=== PATIENT | female | born 1985 | race Caucasian/White ===

== ENCOUNTER → 2018-04-22 09:52 | Outpatient (CLI) | payer OTHER, SELFPAY ==
--- NOTE | 2018-04-22 09:53 | RAD_ITS ---
STUDY: X-RAY CHEST REASON FOR EXAM: Female, 32 years old. Cough. TECHNIQUE: Frontal and lateral views of the chest. COMPARISON: None. FINDINGS: The lungs are clear and expanded. There is no demonstrated pleural abnormality. Normal size heart. Normal mediastinum and pernell. Normal visualized pulmonary arteries. Normal visualized aortic arch and descending thoracic aorta. Normal visualized thoracic spine. Normal visualized ribs, clavicles, and shoulders. There is no demonstrated abnormality of the visualized soft tissue structures of the upper abdomen. RAD/Chest PA and Lateral IMPRESSION: Normal x-ray examination of the chest. Electronically Signed: Aldair Burnett MD at 16:58 EDT , Service support ,
== END ==
PROVIDERS: Family Provider Internal Medicine; PCP Internal Medicine; Visit Provider Nurse Practitioner Gerontology
DX: R05 Cough (principal)
CPT/HCPCS: 71046

== ENCOUNTER → 2019-01-01 10:44 | Outpatient (CLI) | payer OTHER, SELFPAY ==
--- NOTE | 2019-01-01 10:58 | VDUE_ITS ---
Reason For Study: LUE pain Left Proximal Left jugular vein is spontaneous, widely patent, phasic, with no intraluminal echogenicity noted. Left subclavian vein is spontaneous, widely patent, phasic, with no intraluminal echogenicity noted. Left Arm Left axillary vein is spontaneous, patent, phasic, competent, compressible and demonstrates augmentation. Left brachial vein is compressible. Left cephalic vein is compressible. Left basilic vein is compressible. Left Lower Arm Left radial vein is compressible. Left ulnar vein is compressible. Interpretation Summary Deep veins of the left upper extremity are patent and compressible segmentally. There is no evidence of deep vein thrombosis. The superficial veins of the left upper extremity, the basilic and cephalic veins, are patent and compressible. There is no evidence of left upper extremity superficial thrombophlebitis involving the veins imaged. Ordering Physician: Brandee Del Rio Referring Physician: Brandee Del Rio Performed By: Zulema Gamboa RVT ?
== END ==
PROVIDERS: Family Provider Internal Medicine; PCP Internal Medicine; Referring Provider Nurse Practitioner; Visit Provider Nurse Practitioner
DX: M79.602 Pain in left arm (principal)
CPT/HCPCS: 93971

== ENCOUNTER 2020-03-12 15:41 | Emergency (ER) | payer OTHER, SELFPAY ==
[2020-03-12 15:43] VITALS: BP 132/78; PULSE 75; RESP 16; TEMP 36.1; O2SAT 98; BMI 28.2
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
--- NOTE | 2020-03-12 17:00 | ED.DEP ---
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
[2020-03-12] MEDS: RALTEGRAVIR POTASSIUM 400 MG TABLET PO (17:57)
--- NOTE | 2020-03-12 17:58 | ED.RN ---
Both truvada and isentress given unable to chart [facility]
[2020-03-12 18:10] LABS: HIV - WCH Non-Reactive (Nonreactive); Hepatitis B Surface Antibody Reactive; Hepatitis B Surface Antigen Non-Reactive (Nonreactive); Hepatitis C Antibody Non-Reactive (Nonreactive)
--- OUTSIDE RECORDS SUMMARY | 2020-08-03 16:15 | XMS RPT_ITS | CCD ---
:1985 External Reference #:[id number] Author Organization [facility] Care Team Providers Name Role Phone Zay Unavailable Librado Unavailable Cody Unavailable Hola [place] Unavailable Bob Unavailable Unavailable Yesenia Unavailable Unavailable Slarb Unavailable Unavailable Mast Unavailable Mast Unavailable Messenger Unavailable Unavailable Rojas Unavailable Unavailable Zay Attending Unavailable Zay Referring Unavailable Zay Consulting Unavailable Messenger Unavailable Unavailable Gravius Unavailable Unavailable Medications Medication Name Sig Date Prescriber Location Albuterol ProAir HFA 108 (90 08-11-2019 Bao Begum [facility]) MCG/ACT Internal Medic ine Inhalation Aerosol (61014) Solution 2 (two) Puff tid for 0 days Quantity: 1 {Inhaler} Refills: 0 Ordered: 11-Aug-2019 Bao Rojas LPN Start : 11-Aug-2019 Active Amoxicillin / Amoxicillin-Pot 06-13-2019 Mili Vergara nsive Clavulanate Clavulanate 875-125 - Internal Medicine MG Oral Tablet 1 08-01-2019 (15917) (one) Tablet bid for 0 days Quantity: 20 {Tablet} Refills: 0 Ordered: 01-Aug-2019 Mili Aldana RN Start : 13-Jun-2019 End : 01-Aug-2019 Inactive Augmentin 875-125 MG 07-02-2018 - Mili Bautistai ve Internal Oral Tablet 1 (one) 07-12-2018 Medicine (44 691) Tablet bid for 10 days Quantity: 20 {Tablet} Refills: 0 Ordered: 02-Jul-2018 Mili Castro Start : 02-Jul-2018 End : 12-Jul-2018 Inactive Azithromycin Zithromax Z-Keyur 250 08-11-2019 - Bao Vergara nsive MG Oral Tablet 1 09-01-2019 Internal Me dicine (one) Tablet TAD for (34986) 0 days Quantity: 1 {Package} Refills: 0 Ordered: 01-Sep-2019 Bao Rojas LPN Start : 11-Aug-2019 End : 01-Sep-2019 Inactive celecoxib CELEBREX, 200MG 07-21-2009 Mili Comprehensiv e (Oral Capsule) 1 Messenger Internal Me dicine Capsule BID for 0 (91409) days Quantity: 14 {Capsule} Refills: 0 Ordered: 09-May-2010 Mili Aldana RN Start : 21-Jul-2009 Inactive Cholecalciferol Vitamin D3 86392 11-25-2012 - Meera Slarb Comprehe nsive UNIT Oral Capsule 4 07-05-2016 Internal Medicine Capsule qd for 30 (23350) days Refills: 0 Ordered: 05-Jul-2016 Slarb Meera TOM Start : 25-Nov-2012 End : 05-Jul-2016 Discontinued Citalopram CELEXA, 20MG (Oral 11-25-2012 - Henrietta Comprehen sive Tablet) 1 Tablet qd 11-25-2012 [facility] Internal Medicine for 0 days Quantity: (28611) 30 {Tablet} Refills: 2 Ordered: 25-Nov-2012 Henrietta Collazo DO, DO, Kathleen Start : 25-Nov-2012 End : 25-Nov-2012 Discontinued Clotrimazole Clotrimazole 10 MG 08-11-2019 - Brandee Simental Ciesa Comprehen sive Mouth/Throat Chato 08-21-2019 Internal Medicine 1 (one) Chato 5 x (16083) daily for 10 days Quantity: 50 {Chato} Refills: 0 Ordered: 11-Aug-2019 Ciesa Brandee SALGADO Start : 11-Aug-2019 End : 21-Aug-2019 Inactive Codeine / Cheratussin AC 08-11-2019 - Bao Rojas Comprehensive guaiFENesin 100-10 MG/5ML Oral 09-02-2019 Internal Medicine Syrup 5-10 (94513) Milliliter q3-4 times per day for 0 days Quantity: 280 {Milliliter} Refills: 0 Ordered: 02-Sep-2019 Bao Rojas LPN Start : 11-Aug-2019 End : 02-Sep-2019 Inactive cyclobenzaprine Cyclobenzaprine HCl 04-29-2018 - Sondra Compr ehensive 5 MG Oral Tablet 1 07-02-2018 Yesenia Internal Medicine (one) Tablet tid prn (45294) for 0 days Quantity: 30 {Tablet} Refills: 0 Ordered: 02-Jul-2018 Sondra Patterson Start : 29-Apr-2018 End : 02-Jul-2018 Discontinued diazePAM VALIUM, 5MG (Oral 07-21-2009 Mili Comprehens essence Tablet) 1 (one) Messenger Internal Med icine Tablet BID/PRN for 0 (26993) days Quantity: 20 {Tablet} Refills: 0 Ordered: 09-May-2010 Mili Aldana RN Start : 21-Jul-2009 Inactive Comments: hand written RX by Dr. Collazo Comment: hand written RX by Dr. Zoe stiles Dicyclomine BENTYL, 20MG (Oral 07-22-2013 - Janet Comprehen sive Tablet) 1 Tablet 02-13-2014 [facility] Internal Me dicine tid prn for 0 days (73576) Quantity: 60 {Tablet} Refills: 0 [facility] REPRESENTATIVE, Janet Start : 22-Jul-2013 End : 13-Feb-2014 Inactive Ergocalciferol ERGOCALCIFEROL, 04-05-2009 - Mili Comprehens essence 94459HMFM (Oral 07-09-2009 [facility] Internal Med icine Capsule) 1 (one) (05772) Capsule weekly for 0 days Quantity: 12 {Capsule} Refills: 0 Ordered: 05-Apr-2009 Mili Aldana RN Start : 05-Apr-2009 End : 09-Jul-2009 Inactive Ethinyl Estradiol / Ortho-Cyclen (28) 08-06-2019 - Elodia Sesay C omprehensive norgestimate 0.25-35 MG-MCG 04-29-2020 Henrietta Internal [facility] cine Oral Tablet 1 Zay (16124) (one) Tablet qd for 90 days Quantity: 3 {Package} Refills: 3 Ordered: 06-Aug-2019 Henrietta Collazo DO, DO, Kathleen Start : 06-Aug-2019 End : 29-Apr-2020 Discontinued Comments: Mail order. Ortho-Cyclen (28) 08-06-2019 - Elodia Friedius Comprehensive Internal 0.25-35 MG-MCG Oral 04-29-2020 Henrietta Zay Medicine (44 691) Tablet 1 (one) Tablet qd for 90 days Quantity: 3 {Package} Refills: 3 Ordered: 06-Aug-2019 Zay DO, Henrietta Zay DO, Henrietta Start : 06-Aug-2019 End : 29-Apr-2020 Discontinued Comments: Mail order. Ortho-Cyclen (28) 08-06-2019 - Elodia Gravius Comprehensive Internal 0.25-35 MG-MCG Oral 04-29-2020 Henrietta Zay Medicine (44 691) Tablet 1 (one) Tablet qd for 90 days Quantity: 3 {Package} Refills: 3 Ordered: 06-Aug-2019 Zay DO, Henrietta Zay DO, Henrietta Start : 06-Aug-2019 End : 29-Apr-2020 Discontinued Comments: Mail order. Ortho-Cyclen (28) 08-06-2019 - Elodia Gravius Comprehensive Internal 0.25-35 MG-MCG Oral 04-29-2020 Henrietta Zay Medicine (44 691) Tablet 1 (one) Tablet qd for 90 days Quantity: 3 {Package} Refills: 3 Ordered: 06-Aug-2019 Zay DO, Henrietta Zay DO, Henrietta Start : 06-Aug-2019 End : 29-Apr-2020 Discontinued Comments: Mail order. Ortho-Cyclen (28) 08-06-2019 - Elodia Gravius Comprehensive Internal 0.25-35 MG-MCG Oral 04-29-2020 Henrietta Zay Medicine (44 691) Tablet 1 (one) Tablet qd for 90 days Quantity: 3 {Package} Refills: 3 Ordered: 06-Aug-2019 Zay DO, Henrietta Zay DO, Henrietta Start : 06-Aug-2019 End : 29-Apr-2020 Discontinued Comments: Mail order. Ortho-Cyclen (28) 08-06-2019 - Elodia Gravius Comprehensive Internal 0.25-35 MG-MCG Oral 04-29-2020 Henrietta Zay Medicine (44 691) Tablet 1 (one) Tablet qd for 90 days Quantity: 3 {Package} Refills: 3 Ordered: 06-Aug-2019 Zay DO, Henrietta Zay DO, Henrietta Start : 06-Aug-2019 End : 29-Apr-2020 Discontinued Comments: Mail order. Ortho-Cyclen (28) 08-06-2019 - Elodia Gravius Comprehensive Internal 0.25-35 MG-MCG Oral 04-29-2020 Henrietta Zay Medicine (44 691) Tablet 1 (one) Tablet qd for 90 days Quantity: 3 {Package} Refills: 3 Ordered: 06-Aug-2019 Zay DO, Henrietta Zay DO, Henrietta Start : 06-Aug-2019 End : 29-Apr-2020 Discontinued Comments: Mail order. Ortho-Cyclen (28) 08-06-2019 - Elodia Gravius Comprehensive Internal 0.25-35 MG-MCG Oral 04-29-2020 Henrietta Zay Medicine (44 691) Tablet 1 (one) Tablet qd for 90 days Quantity: 3 {Package} Refills: 3 Ordered: 06-Aug-2019 Zay DO, Henrietta Zay DO, Henrietta Start : 06-Aug-2019 End : 29-Apr-2020 Discontinued Comments: Mail order. Ortho-Cyclen (28) 08-06-2019 Meera Slarb Comprehensive Internal 0.25-35 MG-MCG Oral Henrietta Zay Medicine (44 691) Tablet 1 (one) Tablet qd for 90 days Quantity: 3 {Package} Refills: 3 Ordered: 06-Aug-2019 Zay DO, Henrietta Zay DO, Henrietta Start : 06-Aug-2019 Active Comments: Mail order. Ortho-Cyclen (28) 08-06-2019 Meera Slarb Comprehensive Internal 0.25-35 MG-MCG Oral Henrietta Zay Medicine (44 691) Tablet 1 (one) Tablet qd for 90 days Quantity: 3 {Package} Refills: 3 Ordered: 06-Aug-2019 Zay DO, Henrietta Zay DO, Henrietta Start : 06-Aug-2019 Active Comments: Mail order. Ortho-Cyclen (28) 08-06-2019 Meera Slarb Comprehensive Internal 0.25-35 MG-MCG Oral Henrietta Zay Medicine (44 691) Tablet 1 (one) Tablet qd for 90 days Quantity: 3 {Package} Refills: 3 Ordered: 06-Aug-2019 Zay DO, Henrietta Zay DO, Henrietta Start : 06-Aug-2019 Active Comments: Mail order. Ortho-Cyclen (28) 08-06-2019 Meera Slarb Comprehensive Internal 0.25-35 MG-MCG Oral Henrietta Zay Medicine (44 691) Tablet 1 (one) Tablet qd for 90 days Quantity: 3 {Package} Refills: 3 Ordered: 06-Aug-2019 Zay DO, Henrietta Zay DO, Henrietta Start : 06-Aug-2019 Active Comments: Mail order. Ortho-Cyclen (28) 08-06-2019 Meera Slarb Comprehensive Internal 0.25-35 MG-MCG Oral Henrietta Zay Medicine (44 691) Tablet 1 (one) Tablet qd for 90 days Quantity: 3 {Package} Refills: 3 Ordered: 06-Aug-2019 Zay DO, Henrietta Zay DO, Henrietta Start : 06-Aug-2019 Active Comments: Mail order. Ortho-Cyclen (28) 08-06-2019 Meera Slarb Comprehensive Internal 0.25-35 MG-MCG Oral Henrietta Zay Medicine (44 691) Tablet 1 (one) Tablet qd for 90 days Quantity: 3 {Package} Refills: 3 Ordered: 06-Aug-2019 Zay DO, Henrietta Zay DO, Henrietta Start : 06-Aug-2019 Active Comments: Mail order. [email or web address] (28) 08-06-2019 Meera Slarb Comprehensive Internal 0.25-35 MG-MCG Oral Henrietta Zay Medicine (44 691) Tablet 1 (one) Tablet qd for 90 days Quantity: 3 {Package} Refills: 3 Ordered: 06-Aug-2019 Zay DO, Henrietta Zay DO, Henrietta Start : 06-Aug-2019 Active Comments: Mail order. [email or web address] (28) 08-06-2019 Meera Slarb Comprehensive Internal 0.25-35 MG-MCG Oral Henrietta Zay Medicine (44 691) Tablet 1 (one) Tablet qd for 90 days Quantity: 3 {Package} Refills: 3 Ordered: 06-Aug-2019 Zay DO, Henrietta Zay DO, Henrietta Start : 06-Aug-2019 Active Comments: Mail order. [email or web address] (28) 09-02-2018 Mili Messenger Comprehensive Internal 0.25-35 MG-MCG Oral Henriteta Zay Medicine (44 691) Tablet 1 (one) Tablet qd for 30 days Quantity: 1 {Package} Refills: 0 Ordered: 02-Sep-2018 Zay DO, Henrietta Zay DO, Henrietta Start : 02-Sep-2018 Active Comments: take as directed Ortho-Cyclen (28) 09-02-2018 Mili Messenger Comprehensive Internal 0.25-35 MG-MCG Oral Henrietta Zay Medicine (44 691) Tablet 1 (one) Tablet qd for 90 days Quantity: 3 {Package} Refills: 3 Ordered: 02-Sep-2018 Zay DO, Henrietta Zay DO, Henrietta Start : 02-Sep-2018 Active Comments: Mail order. Ortho-Cyclen (28) 09-02-2018 Mili Messenger Comprehensive Internal 0.25-35 MG-MCG Oral Henrietta Zay Medicine (44 691) Tablet 1 (one) Tablet qd for 90 days Quantity: 3 {Package} Refills: 3 Ordered: 02-Sep-2018 Zay DO, Henrietta Zay DO, Henrietta Start : 02-Sep-2018 Active Comments: Mail order. Ortho-Cyclen (28) 09-02-2018 Mili [employer] Comprehensive Internal 0.25-35 MG-MCG Oral Henrietta Zay Medicine (44 691) Tablet 1 (one) Tablet qd for 30 days Quantity: 1 {Package} Refills: 0 Ordered: 02-Sep-2018 Zay DO, Henrietta Zay DO, Henrietta Start : 02-Sep-2018 Active Comments: take as directed Ortho-Cyclen (28) 09-02-2018 Mili [employer] Comprehensive Internal 0.25-35 MG-MCG Oral Henrietta Zay Medicine (44 691) Tablet 1 (one) Tablet qd for 30 days Quantity: 1 {Package} Refills: 0 Ordered: 02-Sep-2018 Zay DO, Henrietta Zay DO, Henrietta Start : 02-Sep-2018 Active Comments: take as directed Ortho-Cyclen (28) 09-02-2018 Mili [employer] Comprehensive Internal 0.25-35 MG-MCG Oral Henrietta Zay Medicine (44 691) Tablet 1 (one) Tablet qd for 90 days Quantity: 3 {Package} Refills: 3 Ordered: 02-Sep-2018 Zay DO, Henrietta Zay DO, Henrietta Start : 02-Sep-2018 Active Comments: Mail order. Ortho-Cyclen (28) 09-02-2018 Mili [facility] Comprehensive Internal 0.25-35 MG-MCG Oral Henrietta Zay Medicine (44 691) Tablet 1 (one) Tablet qd for 90 days Quantity: 3 {Package} Refills: 3 Ordered: 02-Sep-2018 Zay DO, Henrietta Zay DO, Henrietta Start : 02-Sep-2018 Active Ortho-Cyclen (28) 09-02-2018 Mili [facility] Comprehensive Internal 0.25-35 MG-MCG Oral Henrietta Zay Medicine (44 691) Tablet 1 (one) Tablet qd for 30 days Quantity: 1 {Package} Refills: 0 Ordered: 02-Sep-2018 Zay DO, Henrietta Zay DO, Henrietta Start : 02-Sep-2018 Active Comments: take as directed ORTHO TRI-CYCLEN , 02-19-2015 - Henrietta Zay Comprehensi ve Internal 0.18/0.215/0.25MG-25 02-19-2015 Medicine (4 4691) MCG (Oral Tablet) 1 Tablet qd for 0 days Quantity: 1 {Tablet} Refills: 0 Ordered: 19-Feb-2015 Zay DO, Henrietta Zay DO, Henrietta Start : 19-Feb-2015 End : 19-Feb-2015 Discontinued Comments: needs a pap ORTHO TRI-CYCLEN , 02-19-2015 - Henrietta Zay Comprehensi ve Internal 0.18/0.215/0.25MG-25 02-19-2015 Medicine (4 4691) MCG (Oral Tablet) 1 Tablet qd for 0 days Quantity: 1 {Tablet} Refills: 0 Ordered: 19-Feb-2015 Zay DO, Henrietta Zay DO, Henrietta Start : 19-Feb-2015 End : 19-Feb-2015 Discontinued Comments: needs a pap ORTHO TRI-CYCLEN , 02-19-2015 - Henrietta Zay Comprehensi ve Internal 0.18/0.215/0.25MG-25 02-19-2015 Medicine (4 4691) MCG (Oral Tablet) 1 Tablet qd for 0 days Quantity: 1 {Tablet} Refills: 0 Ordered: 19-Feb-2015 Zay DO, Henrietta Zay DO, Henrietta Start : 19-Feb-2015 End : 19-Feb-2015 Discontinued Comments: needs a pap ORTHO TRI-CYCLEN , 02-19-2015 - Henrietta Zay Comprehensi ve Internal 0.18/0.215/0.25MG-25 02-19-2015 Medicine (4 4691) MCG (Oral Tablet) 1 Tablet qd for 0 days Quantity: 1 {Tablet} Refills: 0 Ordered: 19-Feb-2015 Zay DOHenrietta DO, Kathleen Start : 19-Feb-2015 End : 19-Feb-2015 Discontinued Comments: needs a pap ORTHO TRI-CYCLEN , 02-19-2015 - Henrietta Zay Comprehensi ve Internal 0.18/0.215/0.25MG-25 02-19-2015 Medicine (4 4691) MCG (Oral Tablet) 1 Tablet qd for 0 days Quantity: 1 {Tablet} Refills: 0 Ordered: 19-Feb-2015 Zay DOHenrietta DO, Kathleen Start : 19-Feb-2015 End : 19-Feb-2015 Discontinued Comments: needs a pap ORTHO TRI-CYCLEN , 02-19-2015 - Henrietta Zay Comprehensi ve Internal 0.18/0.215/0.25MG-25 02-19-2015 Medicine (4 4691) MCG (Oral Tablet) 1 Tablet qd for 0 days Quantity: 1 {Tablet} Refills: 0 Ordered: 19-Feb-2015 Zay DOHenrietta DO, Kathleen Start : 19-Feb-2015 End : 19-Feb-2015 Discontinued Comments: needs a pap ORTHO TRI-CYCLEN , 02-19-2015 - Henrietta Zay Comprehensi ve Internal 0.18/0.215/0.25MG-25 02-19-2015 Medicine (4 4691) MCG (Oral Tablet) 1 Tablet qd for 0 days Quantity: 1 {Tablet} Refills: 0 Ordered: 19-Feb-2015 Zay DOHenrietta DO, Kathleen Start : 19-Feb-2015 End : 19-Feb-2015 Discontinued Comments: needs a pap ORTHO TRI-CYCLEN , 02-19-2015 - Henrietta Zay Comprehensi ve Internal 0.18/0.215/0.25MG-25 02-19-2015 Medicine (4 4691) MCG (Oral Tablet) 1 Tablet qd for 0 days Quantity: 1 {Tablet} Refills: 0 Ordered: 19-Feb-2015 Zay DO, Henrietta Zay DO Henrietta Start : 19-Feb-2015 End : 19-Feb-2015 Discontinued Comments: needs a pap ORTHO TRI-CYCLEN , 02-19-2015 - Henrietta Zay Comprehensi ve Internal 0.18/0.215/0.25MG-25 02-19-2015 Medicine (4 4691) MCG (Oral Tablet) 1 Tablet qd for 0 days Quantity: 1 {Tablet} Refills: 0 Ordered: 19-Feb-2015 Zay DO, Henrietta Zay DO Henrietta Start : 19-Feb-2015 End : 19-Feb-2015 Discontinued Comments: needs a pap ORTHO TRI-CYCLEN , 02-19-2015 - Henrietta Zay Comprehensi ve Internal 0.18/0.215/0.25MG-25 02-19-2015 Medicine (4 4691) MCG (Oral Tablet) 1 Tablet qd for 0 days Quantity: 1 {Tablet} Refills: 0 Ordered: 19-Feb-2015 Zay DO, Henrietta Zay DO Henrietta Start : 19-Feb-2015 End : 19-Feb-2015 Discontinued Comments: needs a pap ORTHO TRI-CYCLEN , 02-19-2015 - Henrietta Zay Comprehensi ve Internal 0.18/0.215/0.25MG-25 02-19-2015 Medicine (4 4691) MCG (Oral Tablet) 1 Tablet qd for 0 days Quantity: 1 {Tablet} Refills: 0 Ordered: 19-Feb-2015 Zay DO, Henrietta Zay DO Henrietta Start : 19-Feb-2015 End : 19-Feb-2015 Discontinued Comments: needs a pap ORTHO TRI-CYCLEN , 02-19-2015 - Henrietta Zay Comprehensi ve Internal 0.18/0.215/0.25MG-25 02-19-2015 Medicine (4 4691) MCG (Oral Tablet) 1 Tablet qd for 0 days Quantity: 1 {Tablet} Refills: 0 Ordered: 19-Feb-2015 Zay DO, Henrietta Zay DO Henrietta Start : 19-Feb-2015 End : 19-Feb-2015 Discontinued Comments: needs a pap ORTHO TRI-CYCLEN , 02-19-2015 - Henrietta Zay Comprehensi ve Internal 0.18/0.215/0.25MG-25 02-19-2015 Medicine (4 4691) MCG (Oral Tablet) 1 Tablet qd for 0 days Quantity: 1 {Tablet} Refills: 0 Ordered: 19-Feb-2015 Henrietta Collazo DO, DO, Kathleen Start : 19-Feb-2015 End : 19-Feb-2015 Discontinued Comments: needs a pap ORTHO TRI-CYCLEN , 02-19-2015 - Henrietta Zay Comprehensi ve Internal 0.18/0.215/0.25MG-25 02-19-2015 Medicine (4 4691) MCG (Oral Tablet) 1 Tablet qd for 0 days Quantity: 1 {Tablet} Refills: 0 Ordered: 19-Feb-2015 Zay DOHenrietta DO, Kathleen Start : 19-Feb-2015 End : 19-Feb-2015 Discontinued Comments: needs a pap ORTHO TRI-CYCLEN , 02-19-2015 - Henrietta Zay Comprehensi ve Internal 0.18/0.215/0.25MG-25 02-19-2015 Medicine (4 4691) MCG (Oral Tablet) 1 Tablet qd for 0 days Quantity: 1 {Tablet} Refills: 0 Ordered: 19-Feb-2015 Zay DOHenrietta DO, Kathleen Start : 19-Feb-2015 End : 19-Feb-2015 Discontinued Comments: needs a pap ORTHO TRI-CYCLEN , 02-19-2015 - Henrietta Zay Comprehensi ve Internal 0.18/0.215/0.25MG-25 02-19-2015 Medicine (4 4691) MCG (Oral Tablet) 1 Tablet qd for 0 days Quantity: 1 {Tablet} Refills: 0 Ordered: 19-Feb-2015 Zay DOHenrietta DO, Kathleen Start : 19-Feb-2015 End : 19-Feb-2015 Discontinued Comments: needs a pap ORTHO TRI-CYCLEN , 02-19-2015 - Henrietta Zay Comprehensi ve Internal 0.18/0.215/0.25MG-25 02-19-2015 Medicine (4 4691) MCG (Oral Tablet) 1 Tablet qd for 0 days Quantity: 1 {Tablet} Refills: 0 Ordered: 19-Feb-2015 Zay DO, Henrietta Zay DO Henrietta Start : 19-Feb-2015 End : 19-Feb-2015 Discontinued Comments: needs a pap ORTHO TRI-CYCLEN , 02-19-2015 - Henrietta Zay Comprehensi ve Internal 0.18/0.215/0.25MG-25 02-19-2015 Medicine (4 4691) MCG (Oral Tablet) 1 Tablet qd for 0 days Quantity: 1 {Tablet} Refills: 0 Ordered: 19-Feb-2015 Zay DO, Henrietta Zay DO Henrietta Start : 19-Feb-2015 End : 19-Feb-2015 Discontinued Comments: needs a pap ORTHO TRI-CYCLEN , 02-19-2015 - Henrietta Zay Comprehensi ve Internal 0.18/0.215/0.25MG-25 02-19-2015 Medicine (4 4691) MCG (Oral Tablet) 1 Tablet qd for 0 days Quantity: 1 {Tablet} Refills: 0 Ordered: 19-Feb-2015 Zay DO, Henrietta Zay DO Henrietta Start : 19-Feb-2015 End : 19-Feb-2015 Discontinued Comments: needs a pap ORTHO TRI-CYCLEN , 02-19-2015 - Henrietta Zay Comprehensi ve Internal 0.18/0.215/0.25MG-25 02-19-2015 Medicine (4 4691) MCG (Oral Tablet) 1 Tablet qd for 0 days Quantity: 1 {Tablet} Refills: 0 Ordered: 19-Feb-2015 Zay DO, Henrietta Zay DO Henrietta Start : 19-Feb-2015 End : 19-Feb-2015 Discontinued Comments: needs a pap ORTHO TRI-CYCLEN (28), 05-09-2010 - Henrietta Zay Comprehen sive Internal 0.18/0.215/0.25MG-35 05-09-2010 Medicine (4 4691) MCG (Oral Tablet) 1 Tablet qd for 0 days Quantity: 1 {Tablet} Refills: 0 Ordered: 09-May-2010 Zay DO, Henrietta Zay DO Henrietta Start : 09-May-2010 End : 09-May-2010 Discontinued Comments: breast tenderness etc ORTHO TRI-CYCLEN (28), 05-09-2010 - Henrietta Zay Comprehen sive Internal 0.18/0.215/0.25MG-35 05-09-2010 Medicine (4 4691) MCG (Oral Tablet) 1 Tablet qd for 0 days Quantity: 1 {Tablet} Refills: 0 Ordered: 09-May-2010 Henrietta Collazo DO, DO, Kathleen Start : 09-May-2010 End : 09-May-2010 Discontinued Comments: breast tenderness etc ORTHO TRI-CYCLEN (28), 05-09-2010 - Henrietta Zay Comprehen sive Internal 0.18/0.215/0.25MG-35 05-09-2010 Medicine (4 4691) MCG (Oral Tablet) 1 Tablet qd for 0 days Quantity: 1 {Tablet} Refills: 0 Ordered: 09-May-2010 Zay DOHenrietta DO, Kathleen Start : 09-May-2010 End : 09-May-2010 Discontinued Comments: breast tenderness etc ORTHO TRI-CYCLEN (28), 05-09-2010 - Henrietta Zay Comprehen sive Internal 0.18/0.215/0.25MG-35 05-09-2010 Medicine (4 4691) MCG (Oral Tablet) 1 Tablet qd for 0 days Quantity: 1 {Tablet} Refills: 0 Ordered: 09-May-2010 Zay DOHenrietta DO, Kathleen Start : 09-May-2010 End : 09-May-2010 Discontinued Comments: breast tenderness etc ORTHO TRI-CYCLEN (28), 05-09-2010 - Henrietta Zay Comprehen sive Internal 0.18/0.215/0.25MG-35 05-09-2010 Medicine (4 4691) MCG (Oral Tablet) 1 Tablet qd for 0 days Quantity: 1 {Tablet} Refills: 0 Ordered: 09-May-2010 Zay DOHenrietta DO, Kathleen Start : 09-May-2010 End : 09-May-2010 Discontinued Comments: breast tenderness etc ORTHO TRI-CYCLEN (28), 05-09-2010 - Henrietta Zay Comprehen sive Internal 0.18/0.215/0.25MG-35 05-09-2010 Medicine (4 4691) MCG (Oral Tablet) 1 Tablet qd for 0 days Quantity: 1 {Tablet} Refills: 0 Ordered: 09-May-2010 Zay DO, Henrietta Zay DO Henrietta Start : 09-May-2010 End : 09-May-2010 Discontinued Comments: breast tenderness etc ORTHO TRI-CYCLEN (28), 05-09-2010 - Henrietta Zay Comprehen sive Internal 0.18/0.215/0.25MG-35 05-09-2010 Medicine (4 4691) MCG (Oral Tablet) 1 Tablet qd for 0 days Quantity: 1 {Tablet} Refills: 0 Ordered: 09-May-2010 Zay DO, Henrietta Zay DO, Henrietta Start : 09-May-2010 End : 09-May-2010 Discontinued Comments: breast tenderness etc ORTHO TRI-CYCLEN (28), 05-09-2010 - Henrietta Zay Comprehen sive Internal 0.18/0.215/0.25MG-35 05-09-2010 Medicine (4 4691) MCG (Oral Tablet) 1 Tablet qd for 0 days Quantity: 1 {Tablet} Refills: 0 Ordered: 09-May-2010 Zay DO, Henrietta Zay DO, Henrietta Start : 09-May-2010 End : 09-May-2010 Discontinued Comments: breast tenderness etc ORTHO TRI-CYCLEN (28), 05-09-2010 - Henrietta Zay Comprehen sive Internal 0.18/0.215/0.25MG-35 05-09-2010 Medicine (4 4691) MCG (Oral Tablet) 1 Tablet qd for 0 days Quantity: 1 {Tablet} Refills: 0 Ordered: 09-May-2010 Zay DO, Henrietta Zay DO Henrietta Start : 09-May-2010 End : 09-May-2010 Discontinued Comments: breast tenderness etc ORTHO TRI-CYCLEN (28), 05-09-2010 - Henrietta Zay Comprehen sive Internal 0.18/0.215/0.25MG-35 05-09-2010 Medicine (4 4691) MCG (Oral Tablet) 1 Tablet qd for 0 days Quantity: 1 {Tablet} Refills: 0 Ordered: 09-May-2010 Zay DO, Henrietta Zay DO, Henrietta Start : 09-May-2010 End : 09-May-2010 Discontinued Comments: breast tenderness etc ORTHO TRI-CYCLEN (28), 05-09-2010 - Henrietta Zay Comprehen sive Internal 0.18/0.215/0.25MG-35 05-09-2010 Medicine (4 4691) MCG (Oral Tablet) 1 Tablet qd for 0 days Quantity: 1 {Tablet} Refills: 0 Ordered: 09-May-2010 Henrietta Collazo DO, DO, Kathleen Start : 09-May-2010 End : 09-May-2010 Discontinued Comments: breast tenderness etc ORTHO TRI-CYCLEN (28), 05-09-2010 - Henrietta Zay Comprehen sive Internal 0.18/0.215/0.25MG-35 05-09-2010 Medicine (4 4691) MCG (Oral Tablet) 1 Tablet qd for 0 days Quantity: 1 {Tablet} Refills: 0 Ordered: 09-May-2010 Henrietta Collazo DO, DO, Kathleen Start : 09-May-2010 End : 09-May-2010 Discontinued Comments: breast tenderness etc ORTHO TRI-CYCLEN (28), 05-09-2010 - Henrietta Zay Comprehen sive Internal 0.18/0.215/0.25MG-35 05-09-2010 Medicine (4 4691) MCG (Oral Tablet) 1 Tablet qd for 0 days Quantity: 1 {Tablet} Refills: 0 Ordered: 09-May-2010 Henrietta Collazo DO, DO, Kathleen Start : 09-May-2010 End : 09-May-2010 Discontinued Comments: breast tenderness etc ORTHO TRI-CYCLEN (28), 05-09-2010 - Henrietta Zay Comprehen sive Internal 0.18/0.215/0.25MG-35 05-09-2010 Medicine (4 4691) MCG (Oral Tablet) 1 Tablet qd for 0 days Quantity: 1 {Tablet} Refills: 0 Ordered: 09-May-2010 Zay DOHenrietta DO, Kathleen Start : 09-May-2010 End : 09-May-2010 Discontinued Comments: breast tenderness etc ORTHO TRI-CYCLEN (28), 05-09-2010 - Henrietta Zay Comprehen sive Internal 0.18/0.215/0.25MG-35 05-09-2010 Medicine (4 4691) MCG (Oral Tablet) 1 Tablet qd for 0 days Quantity: 1 {Tablet} Refills: 0 Ordered: 09-May-2010 Zay DO, Henrietta Zay DO, Henrietta Start : 09-May-2010 End : 09-May-2010 Discontinued Comments: breast tenderness etc ORTHO TRI-CYCLEN (28), 05-09-2010 - Henrietta Zay Comprehen sive Internal 0.18/0.215/0.25MG-35 05-09-2010 Medicine (4 4691) MCG (Oral Tablet) 1 Tablet qd for 0 days Quantity: 1 {Tablet} Refills: 0 Ordered: 09-May-2010 Zay DO, Henrietta Zay DO, Henrietta Start : 09-May-2010 End : 09-May-2010 Discontinued Comments: breast tenderness etc ORTHO TRI-CYCLEN (28), 05-09-2010 - Henrietta Zay Comprehen sive Internal 0.18/0.215/0.25MG-35 05-09-2010 Medicine (4 4691) MCG (Oral Tablet) 1 Tablet qd for 0 days Quantity: 1 {Tablet} Refills: 0 Ordered: 09-May-2010 Zay DO, Henrietta Zay DO, Henrietta Start : 09-May-2010 End : 09-May-2010 Discontinued Comments: breast tenderness etc ORTHO TRI-CYCLEN (28), 05-09-2010 - Henrietta Zay Comprehen sive Internal 0.18/0.215/0.25MG-35 05-09-2010 Medicine (4 4691) MCG (Oral Tablet) 1 Tablet qd for 0 days Quantity: 1 {Tablet} Refills: 0 Ordered: 09-May-2010 Zay DO, Henrietta Zay DO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 [place] [id number] BY: =G LabZUtA Labsrp Mkmxuzybtx310 [place] WOWIOzaMAD Incubatorrleston [place] [id number] Information: [id number] thin prep pap (17375) (no std testing) Ordered By: Group Home Paraprofessional on 2016-07-05 Normal 07-05-2016 [facility] (47119) Comment: Source.............Cervix;En docervixNo. of containers..01 CYTYC Thin Prep VialPATIENT NOT FASTINGPERFO RMED BY: =G [facility] Hdqyyubbie869 [facility] [id number] BY: SurroundsMe[address] [id number] BY: doxo Bnssxzlieq[address] [id number] Information: [id number] igp, rfx aptima hpv ascu Ordered By: Group Home Paraprofessional on 2016-07-05 Diagnosis ICD code SPRCS Normal 07-05-2016 [facility] [Identifier] Medicin hola (47480) Comment: R87.610The Pap smear is a sc reening test designed to aid in the detection ofpremalignant and malignant conditions of the uterine cervix. It is not adiagnostic procedure and sh ould not be used as the sole means of detectingcervical cancer. Zain th false-positive and false-negative reports do occur. .This liquid based Th inPrep(R) pap test was screened with theuse of an image guided system.See arleth galdamez for HPV testing results. . Source.............Cervix;En docervixNo. of containers..01 CYTYC Thin Prep VialPATIENT NOT FASTINGPERFO RMED BY: =G [facility] M[address]ih[address] [place] [address] [id number] BY: Perceptive PixelYL [facility] [address] [id number] BY: [address] [employer] [place] [address] [id number] Microscopic observation Other . Normal 07-05-2016 [facility] stain Nom (Unsp spec) (57455) Comment: Source.............Cervix;En docervixNo. of containers..01 CYTYC Thin Prep VialPATIENT NOT FASTINGPERFO RMED BY: =G [facility] Gbhorauxfs[address] [id number] BY: SurroundsMe[address] [id number] BY: [employer]otecnologia[address] PickatalerAirSagerobert [facility] W [id number] Pathology report final SPRCS Abnormal 016 [facility] diagnosis [facility] (04662) Comment: EPITHELIAL CELL ABNORMALITY. ATYPICAL SQUAMOUS CELLS OF UNDETERMINED SIGNIFICANCE.Satisfactory fo r evaluation. No endocervical component is identified.Z01.419Bruce Wade Land, Soyfreeze Operator (ASCP)Barb Hoffman MD, Pathologist Source.............Cervix;En docervixNo. of containers..01 CYTYC Thin Prep VialPATIENT NOT FASTINGPERFO RMED BY: =G [facility] Clixwwhhpg038 [place] WOWIOzaMAD Incubatorrlesrobert [facility] W [id number] BY: SurroundsMerp [address] [id number] BY: WB DB Networks [place] PickatalerAirSagerobert [facility] W [id number] hpv aptima Ordered B y: Group Home Paraprofessional on 2016-07-05 HPV Negative Normal 07-05-2016 Comprehen sive 16+18+31+33+35+39+45+51+52+56+58+59+66+68 Internal DNA Probe+sig amp Ql (Cvx) Medicine (98775) Comment: This test detects fourteen h igh-risk HPV types (16/18/31/33/35/39/45/51/52/ 56/58/59/66/68) without differentiation. Source.............Cervix;En docervixNo. of containers..01 CYTYC Thin Prep VialPATIENT NOT FASTINGPERFO RMED BY: =G [facility] Acxrmdlueo478 [place] Pickatalerlesrobert [facility] W [id number] BY: Perceptive PixelYL doxorp Vhlscpbhzmxq[address] [place] [address] [id number] BY: WB [employer] [place] WOWIOzaMAD IncubatorrAirSagerobert [facility] W [id number] hpv automatic (50407) Ordered By: Group Home Paraprofessional on 2015-02-19 HPV Negative Normal 02-19-2015 Comprehen sive 16+18+31+33+35+39+45+51+52+56+58+59+68 Internal DNA Probe+sig amp Ql (Cvx) Medicine (49117) Comment: This high-risk HPV test dete cts thirteen high-risk types(16/18/31/33/35/39/45/5 1/52/56/58/59/68) without differentiation. . Source.............Cervical; EndocervicalLMP / Prev Treat...TFQ=089167Hw. of containers..01 CYTYC Thin Pr ep VialPATIENT NOT FASTINGPERFORMED BY: WB [facility] Boluagxety193 [place] PlazaCharl[place] [id number] BY: =G [facility] Mnbvdzxtkq796 [place] Plaza[place] [id number] Information: [id number] Microscopic observation Other . Normal 02-19-2015 [facility] stain Nom (Unsp spec) (12578) Comment: Source.............Cervical; EndocervicalLMP / Prev Treat...BWW=922463Gx. of containers..01 CYTYC Thin Pr ep VialPATIENT NOT FASTINGPERFORMED BY: WB [facility] Yvioohctaj899 [place] Plaza[place] [id number] BY: =G [facility] Kkadkihdnq820 [place] Plaza[place] [id number] Information: [id number] Pathology report final [facility] Normal 015 [facility] diagnosis [facility] (82522) Comment: NEGATIVE FOR INTRAEPITHELIAL LESION AND MALIGNANCY.Satisfactory for evaluation. Endocervical and /or squamous metaplasticcells (endocervical component) are present.V73.8 1 ; Special screening examination, human papillomavirus [HPV]Sujey Shetty Soyfreeze Operator (ASCP) Source.............Cervical; EndocervicalLMP / Prev Treat...YDE=218021Yf. of containers..01 CYTYC Thin Pr ep VialPATIENT NOT FASTINGPERFORMED BY: WB [facility] Dyssdfcust402 [place] [id number] BY: =G [facility] Cowggwfdtp090 [place] [id number] Information: [id number] PAPSMR Normal 02-19-2015 [facility] (82620) Comment: The Pap smear is a screening test designed to aid in the detection ofpremalignant and malignant conditions of the uterine cervix. It is not adiagnostic procedure and sh ould not be used as the sole means of detectingcervical cancer. Zain th false-positive and false-negative reports do occur. .This liquid based Th inPrep(R) pap test was screened with theuse of an image guided system. Source.............Cervical; EndocervicalLMP / Prev Treat...XPH=670063Tr. of containers..01 CYTYC Thin Pr ep VialPATIENT NOT FASTINGPERFORMED BY: WB [facility] Wydmlnrjnx484 [place] Duongrobert [facility] W [id number] BY: =G [facility] Gbicrhikjw864 [place] [id number] Information: [id number] rapid strep test, office (71263) Ordered By: Janet Power on 2014-04-07 S. pyogenes Ag IA Ql Negative Normal 4 [facility] (Unsp spec) Medicine (83380) matt culture-other (11317) Ordered By: Group Home Paraprofessional on 2014-04-07 Bacteria identified Final report Normal 014 [facility] Respiratory culture Nom Medicine (40335) (Unsp spec) Comment: PATIENT NOT FASTINGPERFORMED BY: CB [facility] Wsaucg0481 [facility] [id number] Information: SRC:THRT [id number] Bacteria identified RRF Normal 04-07-2014 [facility] Respiratory culture Nom ([facility] (95394) spec) Comment: Routine respiratory farzaneh PATIENT NOT FASTINGPERFORMED BY: CB [facility] Xkidjq6531 [facility] [id number] Information: SRC:ANDREW [id number] hpv automatic (37001) Ordered By: Group Home Paraprofessional on 2014-02-16 HPV Negative Normal 02-16-2014 Comprehen sive 16+18+31+33+35+39+45+51+52+56+58+59+68 Internal DNA Probe+sig amp Ql (Cvx) Medicine (65765) Comment: This high-risk HPV test dete cts thirteen high-risk types(16/18/31/33/35/39/45/5 1/52/56/58/59/68) without differentiation. . Source.............Cervical; EndocervicalLMP / Prev Treat...YMB=270631Da. of containers..01 CYTYC Thin Pr ep VialPATIENT NOT FASTINGPERFORMED BY: WB [facility] Gradqbbiyt328 [place] PlazaMAD Incubator[place] [id number] BY: =G [facility] Tzuigxzicx319 [place] Plaza[place] [id number] Information: Skyla [id number] Microscopic observation Other . Normal 02-16-2014 [facility] stain Nom (Unsp spec) (44544) Comment: Source.............Cervical; EndocervicalLMP / Prev Treat...NKH=699368Ei. of containers..01 CYTYC Thin Pr ep VialPATIENT NOT FASTINGPERFORMED BY: WB [facility] Jbhuhegncy642 [place] PlazaMAD Incub[place] [id number] BY: =G [facility] Oqbcjbgboz484 [place] Plaza[place] [id number] Information: Skyla [id number] Pathology report final [facility] Normal 014 [facility] diagnosis Narrative Medicine (19920) Comment: NEGATIVE FOR INTRAEPITHELIAL LESION AND MALIGNANCY.CELLULAR CHANGES ASSOCIATED WITH INFLAMMATION ARE PRESENT.THIS SPECIMEN WAS RESCREENED PART OF OUR MONUMENT SETTER PROGRAM.Satisfactory for evaluation. Endocervical and/or squamous metaplasticcells (endocervical component) are present.V72.31 ; Routine technical inspector ecological examinationHeather Abdalla, Soyfreeze Operator (ASCP)Marie Arevalo, Supervisory Soyfreeze Operator (ASCP) Source.............Cervical; EndocervicalLMP / Prev Treat...EGQ=409676Ad. of containers..01 CYTYC Thin Pr ep VialPATIENT NOT FASTINGPERFORMED BY: WB [facility] Pldpsbhtjv979 [place] [id number] BY: =G [facility] Ydleeiwsjb760 [place] [id number] Information: Skyla [id number] PAPSMR Normal 02-16-2014 [facility] (45215) Comment: The Pap smear is a screening test designed to aid in the detection ofpremalignant and malignant conditions of the uterine cervix. It is not adiagnostic procedure and sh ould not be used as the sole means of detectingcervical cancer. Zain th false-positive and false-negative reports do occur. .This liquid based Th inPrep(R) pap test was screened with theuse of an image guided system. Source.............Cervical; EndocervicalLMP / Prev Treat...ETG=324283Jd. of containers..01 CYTYC Thin Pr ep VialPATIENT NOT FASTINGPERFORMED BY: WB [facility] Bnijrgsyxl497 [place] [id number] BY: =G [facility] Eplinnbyqr884 [place] [id number] Information: Skyla [id number] urine matt culture (ruben col count) (8708 6) Ordered By: Group Home Paraprofessional on 2013 Bacteria identified Cx Nom MUG Normal [facility] (U) (43199) Comment: Mixed urogenital flora1,000 Colonies/mL PATIENT NOT FASTINGPERFORMED BY: CB [facility] Vdnpqr2919 [address] RoadDublin [place] [id number] Information: SRC:UR [id number] Bacteria identified Cx Final report Normal [facility] Nom (U) Medicine ( 44123) Comment: PATIENT NOT FASTINGPERFORMED BY: JONNY [facility] Hmxrmg2601 [facility] [id number] Information: SRC:PATEL [id number] urinalysis, office (33210) on 2013-07-23 Bilirubin Ql (U) Small Normal 07-23-2013 [facility] Medicine ( 90043) Glucose Test strip Negative Normal 07-23-2013 [facility] mass conc (U) Medici ne (12862) Hemoglobin Ql (U) Non Hemolyzed Normal 07-23-20 13 [facility] Moderate Medicine ( 91569) Ketones Ql (U) Moderate Normal 07-23-2013 [facility] ( 56057) Comment: 40mg/dL Leukocyte esterase Test Negative Normal 2012 [facility] strip Ql (U) Medicin e (59705) Nitrite Ql (U) Negative Normal 07-23-2013 [facility] ( 81501) pH (U) 6.0 1 Normal 07-23-2013 [facility] ( 99323) Comment: 5.5 Protein Ql (U) Negative Normal 07-23-2013 [facility] ( 76153) Specific gravity Relative 1.025 1 Normal [facility] Density (U) Medicine (99493) Comment: >=1.030 Urobilinogen mass/time (24H Normal Normal [facility] U) Medicine ( 90399) pelvic (non ) Ordered By: Group Home Paraprofessional on 2013-07-04 See Note Normal 07-04-2013 [facility] (02668) Comment: STUDY: ULTRASOUND OF THE FEM DAVID PELVIS - COMPLETE REASON FOR EXAM: Female, 27 years old. LMP: May. Rightlower quadrant pain. TECHNIQUE: Transabdominal TECHNICAL LUDIN LITY: Adequate. COMPARISON: None. FINDINGS:The uterus is anteverted and is in a midline position . The uterusmeasures8.5 cm x 5.2 cm x 3.0 cm. Normal uterine cervix. The e nxcyltjojptjyvwfpr19 mm in thickness, and is hyperechoic. There is no dem onstratedendometrial mass. There is no demonstrated myometrial mass . I.U.D. -No The right ovary is visualized. The right ovary measures 4.6 cm x 2.8 cmx3.0 cm. Multiple subcentimeter follicles are seen within th e rightovary.There is no visualized right adnexal mass or complex lesi on. There isnormal arterial and normal venous vascularity. The left ovary is visualized. The left ovary measures 3.5 cm x 2.5 cm x1.9 cm. Multiple sub centimeter follicles are seen. There is novisualizedleft adnexal mas s or complex lesion. There is normal arterial and normalvenous vascularity . There is minimal fluid in the cul-de-sac and medial to the right ovary. T he distended urinary bladder had a volume of 514 ml at the time of theexam.__ IMPRESSION:Minimal amount of fluid is seen in the cul-de-sac. Signed:Melissa PantojaJuly 04, 2013 at 9:45:41 AM [id number] y Signed GP/GP If you are the referring physician and would like to consult with theradiologist who provided this interpretation, please contmack Benton M.D. at [phone]. If this radiologist is unavaila [facility], youwill be directed to another radiologist to assist. If you are a pauline ent with a question regarding this report, pleasecontactyour referring physician directly. Professional Interpretation Provided By: [employer], Trevon ne , These documents contain legally pr otected and confidential healthinformation intended only for the use of the individual or entity namedabove. If you are not the intended recipient, you are hereby notifiedthatany disclosure, copying, distribution, or ot her use of these documents isstrictly prohibited. If you have rece ived this information in error,pleasenotify the sender immediately and arran for the return or destructionofthese documents. Dictated on 07/04 by Rae CORTEZ,GabrieleTranscribed on 07/04/13946 by ITS [employer]ORTS ign by Rae CORTEZ,Aleln on 07/04/13947 Sign by: _ Allen Mcbride MD urine matt culture-ruben col count (20068) Ordered By: Group Home Paraprofessional on 2013-06-30 Bacteria identified Cx Final report Normal [facility] Nom (U) Medicine ( 85864) Comment: PATIENT NOT FASTINGPERFORMED BY: Noxilizer [facility] Dljuht1576 [facility] [id number] Information: SRC:UR [id number] Bacteria identified Cx Nom MUG Normal [facility] (U) (70382) Comment: Mixed urogenital flora10,000 -25,000 colony forming units per mL PATIENT NOT FASTINGPERFORMED BY: CB [facility] Vqnzpd1221 [facility] [id number] Information: SRC:UR [id number] urinalysis, office (36538) Ordered By: Janet Power on 2013-06-30 Bilirubin Ql (U) Negative Normal 06-30-2013 [facility] Medicine ( 69174) Glucose Test strip Negative Normal 06-30-2013 [facility] mass conc (U) Medici ne (85603) Hemoglobin Ql (U) Non Hemolyzed Trace Normal [facility] ( 34497) Leukocyte esterase Negative Normal 06-30-2013 [facility] Test strip Ql (U) Me dicine (55426) Nitrite Ql (U) Negative Normal 06-30-2013 Comp rehensive Internal Medicine ( 15660) pH (U) 5.0 1 Normal 06-30-2013 Comprehen sive Internal Medicine ( 04990) Protein Ql (U) Negative Normal 06-30-2013 Comp rehensive Internal Medicine ( 20693) Specific gravity 1.025 1 Normal 06-30-2013 Co mprehensive Internal Relative Density (U) Medicine (00548) Urobilinogen mass/time Normal Normal 013 [facility] (24H U) Medicine ( 42431) tsh Ordered By: Syst em Timber Cruiser on 2013-06-30 Thyrotropin Qn 1.17 0.358-3.74 {uIU/mL} Normal 06-30-2013 [facility] Internal Medicine ( 51198) t4f Ordered By: Syst em Timber Cruiser on 2013-06-30 1.14 0.76-1.46 ng/dL Normal 06-30-2013 [facility] Internal Medicine (44833) sed Ordered By: Syst em Timber Cruiser on 2013-06-30 4 0-20 mm/h Normal 06-30-2013 [facility] Internal Medicine (03973) ft3 Ordered By: Syst em Timber Cruiser on 2013-06-30 2.9 2.18-3.98 pg/mL Normal 06-30-2013 [facility] Internal Medicine (78693) crp Ordered By: Syst em Timber Cruiser on 2013-06-30 CRP mass conc < 2.90 0.0-3.0 mg/L Normal 06-30-2013 [facility] Internal Medicine (72619) Comment: C-Reactive Protein (CRP) pro megha useful information for thediagnosis, therapy and monitoring of in flammatory processesand associated diseases. For the evaluation of Relative R iskfor Cardiovascular Disease, a High Sensitivity CRP (HSCRP)shoul d be ordered. cmp Ordered By: Syst em Timber Cruiser on 2013-06-30 Albumin mass conc 4.5 3.4-5.0 g/dL Normal 06-30-2013 [facility] ( 10813) ALT enzyme act/vol 23 12-78 U/L Normal 06-30-2013 [facility] Internal Medicine ( 99567) AST enzyme act/vol 17 15-37 U/L Normal 06-30-2013 [facility] Internal Medicine ( 34742) Calcium mass conc 9.1 8.5-10.1 mg/dL Normal 06-30-2013 C [facility] Internal Medicine ( 62845) Chloride molar conc 104 98-107 mmol/L Normal 06-30-2013 [facility] Internal Medicine ( 89966) CO2 molar conc 29.0 21.0-32.0 mmol/L Normal 06-30-2013 Comp [facility] Internal Medicine ( 18642) Creatinine mass conc 0.6 0.6-1.0 mg/dL Normal 3 [facility] Internal Medicine ( 13806) GFR/1.73 sq M 128 mL/min Normal 06-30-2013 Compr ehensive Internal predicted among [facility] (62531) non-blacks MDRD vol rate/area (S/P/Bld) Globulin mass conc 3.1 2.7-4.2 g/dL Normal 06-30-2013 [facility] (S) Medicine ( 97549) Glucose mass conc 63 70-110 mg/dL Abnormal 06-30-2013 C omprehensive Internal Medicine ( 78415) Potassium molar conc 4.2 3.5-5.1 mmol/L Normal 3 [facility] ( 82482) Protein mass conc 7.6 6.4-8.2 g/dL Normal 06-30-2013 C omprehensive Internal Medicine ( 64584) Sodium molar conc 140 136-145 mmol/L Normal 06-30-2013 C omprehensive Internal Medicine ( 88584) Urea nitrogen mass 9 7-18 mg/dL Normal 06-30-2013 [facility] conc Medicine ( 23451) 7 5-15 1 Normal 06-30-2013 Comprehen sive Internal Medicine ( 18470) 155 mL/min Normal 06-30-2013 Comprehen [facility] Internal Medicine ( 89461) 70 50-136 U/L Normal 06-30-2013 Comprehen [facility] Internal Medicine ( 37093) 15.0 10-20 {RATIO} Normal 06-30-2013 Comprehen [facility] Internal Medicine ( 29606) 0.70 0.00-1.00 mg/dL Normal 06-30-2013 Comprehen [facility] Internal Medicine ( 24734) 1.5 0.9-2.4 {RATIO} Normal 06-30-2013 Comprehen [facility] Internal Medicine ( 11806) cbcmd Ordered By: Sy stem Timber Cruiser on 2013-06-30 Erythrocyte 13.6 11.6-14.6 % Normal 06-30-2013 Compreh ensive distribution width I nternal Medicine Ratio (RBC) (46168) Hematocrit Volume 38.6 37-47 % Normal 06-30-2013 C omprehensive Fraction (Bld) Inter nal Medicine (35513) Hemoglobin mass conc 14.0 12.0-15.0 g/dL Normal 3 Comprehensive (Bld) Internal M edicine (53580) MCH Entitic mass 30.7 27.0-32.0 pg Normal 06-30-2013 Co mprehensive (RBC) Internal M edicine (96050) MCHC mass conc (RBC) 36.3 32-36 g/dL Abnormal 3 [facility] Internal M edicine (57511) MCV Entitic volume 84.6 81-99 fL Normal 06-30-2013 Comprehensive (RBC) Internal M edicine (39404) Platelet mean volume 11.2 6.2-12.0 fL Normal 3 Comprehensive Entitic volume (Bld) Internal Medicine (97448) Platelets #/vol (Bld) 240 150-450 K/mm3 Normal 06-30-20 13 [facility] Internal M edicine (01266) RBC #/vol (Bld) 4.56 4.2-5.4 {M/mm3} Normal 06-30-2013 Com prehensive Internal M edicine (63441) WBC #/vol (Bld) 6.4 4.4-11.0 {k/mm3} Normal 06-30-2013 Com prehensive Internal M edicine (94130) 7.0 0-10 % Normal 06-30-2013 [facility]prehen [facility] Internal M edicine (68391) 0.9 0-5 % Normal 06-30-2013 Comprehen [facility] Internal M edicine (53389) 30.7 19-41 % Normal 06-30-2013 Comprehen [facility] Internal M edicine (12398) 0.00 0.0-0.9 % Normal 06-30-2013 Comprehen [facility] Internal M edicine (47481) Comment: IG% - Immature Granulocytes (promyelocytes, myelocytes,metamyelocytes) >1.0% indicates that a LEFT SHIFT ispresent. 0.2 0-1 % Normal 06-30-2013 Comprehen [facility] Internal Medicine (95076) 41.7 35.1-43.9 fL Normal 06-30-2013 Comprehen [facility] Internal Medicine (51827) 61.2 47-70 % Normal 06-30-2013 Comprehen [facility] Internal Medicine (59136) 3.9 2.0-7.7 3/uL Normal 06-30-2013 Comprehen [facility] Internal Medicine (02801) abdomen/pelvis with contrast Ordered By: Group Home Paraprofessional on 2013-06-30 See Note Normal 06-30-2013 [facility] (78663) Comment: STUDY: CT ABDOMEN AND PELVIS WITH CONTRAST REASON FOR EXAM: Female, 27 years old. One month history of ri ghtlowerquadrant pain. RADIATION DOSAGE (If Supplied By Facility): CTDIv ol = ( 14.67 ) mGy, DLP=( 1429.77 ) mGycm TECHNIQUE: Transaxial images were obtained from the dome of thediaphragmto the symphysis pubis without oral contrast. 100ML ml of Isovue 300contrast was administered. Multiplana r coronal and sagittal images werereformatted. Delayed imaging was obtained as well. COMPARISON: None. FINDINGS:The visualized lung bases are unremarkable. The visual ized portions oftheheart are within normal limits. Normal liver. Normal gallbladder and extrahepatic biliary system.Normalspleen. Normal pancreas. Normal bilateral adrenal glands. Normal right kidney. Normal left kidney. Normal visualized stomach. Normal small intestine. Normal colo n. Theappendix is visualized and appears normal. Normal abdominal aorta. Norm al inferior vena cava. Normalretroperitoneum. Normal urinary bladder. Foll icles are seen in the ovaries. A smallamountof fluid is seen in the cul-de- sac. Normal abdominal wall. Normal osseous structures. IMPRESSION:Small amount of free fluid in the cul-de-sac . This may representphysiological findings. Signed:Melissa PantojaJune 30, 2013 at 3:40:31 PM [phone] y Signed GP/GP If you are the referring physician and would like to consult with theradiologist who provided this interpretation, please contmack Benton M.D. at [phone]. If this radiologist is unavaila ble, youwill be directed to another radiologist to assist. If you are a pauline ent with a question regarding this report, pleasecontactyour referring physician directly. Professional Interpretation Provided By: Trevon Salas ne , These documents contain legally pr otected and confidential healthinformation intended only for the use of the individual or entity namedabove. If you are not the intended recipient, you are hereby notifiedthatany disclosure, copying, distribution, or ot her use of these documents isstrictly prohibited. If you have rece ived this information in error,pleasenotify the sender immediately and arran ge for the return or destructionofthese documents. Dictated on 06/300 by Rae CORTEZ,Biggranscribed on 06/30/131541 by ITS IMPORTS ign by Allen Mcbride MD on 06/30/131542 Sign by: _ Allen Mcbride MD spine lumbar (routine) Ordered By: Group Home Paraprofessional on 2013-04-04 See Note Normal 04-04-2013 [facility] Internal Medicine (58723) Comment: PROCEDURE: MRI LUMBAR SPINE WITHOUT CONTRAST REASON FOR EXAM: Female, 27 years old. Low back pain wit hradiculopathy.Patient is unable to walk well. TECHNIQUE: Standardized fat and water weighted pulse sequences wereobtained in the sagittal and axial pl anes. COMPARISON: Radiographs of the lumbar spine dated July 21. FINDINGS: T12-L1: Normal endplates. No rmal disc height, hydration and morphology.Normal bilateral facet joints. Normal central canal and bilaterallateralrecesses. No rmal bilateral intervertebral neural foramina. Normal lumbar lordosis. Ther e is no substantial scoliosis. Normal conusmedullaris that termina rafael at the T12-L1. L1-2: Normal endplates. Normal disc height, hydratio n and morphology.Normal bilateral facet joints. Normal central canal and ramona aterallateralrecesses. Normal bilateral intervertebral neural forami na. L2-3: Normal endplates. Normal disc height, hydration and morphology.Nor mal bilateral facet joints. Normal central canal and bilaterallateralrecesses . Normal bilateral intervertebral neural foramina. L3-4: Normal endpl ates. Normal disk height and signal characteristics.There is a m ild disk bulge. The facet joints are within normal limits.Neuroforamina are mildly narrowed without evidence for nerve impingement.There is no gary l stenosis. L4-5: There is a broad right central and foraminal disk protrusio n whichmay impinge the right L5 nerve root at the lateral recess. Neurofor aminaare bilaterally narrowed without evidence for nerve impingement at the lateral recesses. There is mild acquired canal stenosis. There is milddegen erative arthropathy of the facet joints. L5-S1: Normal endplates. Normal dis c height, hydration and morphology.Normal bilateral facet joints. Norm al central canal and bilaterallateralrecesses. Normal bilateral interverteb ral neural foramina. Normal visualized sacral ala. Normal visualized carlton pinous soft tissue structures. IMPRESSION:Disk protrusion at L4-5 with possible impingeme nt of the right L5 nerveatthe lateral recess. Signed:Raegan Mckinney M.D.April 04, 2013 at 7:56:09 PM [phone] Estephania d AM/AM If you are the referring physician and would like to consult with t heradiologist who provided this interpretation, please contact Melissa Rg at . If this radiologist is unavailable, you will bedire cted to another radiologist to assist. If you are a patient with a questio n regarding this report, pleasecontactyour referring physician directly . Professional Interpretation Provided By: Club 42cm, Phone , These documents contain legally protected and confid ential healthinformation intended only for the use of the individual or ent ity namedabove. If you are not the intended recipient, you are hereby no tifiedthatany disclosure, copying, distribution, or other use of these docume nts isstrictly prohibited. If you have received this information in error,pl easenotify the sender immediately and arrange for the return or destructio nofthese documents. Dictated on 04/04/131955 by Hank CORTEZ,WinsomeaTranscribed on 04/04/131957 by ITS IMPORTSign by Raegan Mckinney MD on 04/04/131958 Sig n by: Raegan Mckinney MD vitamin d hydroxy (30009) Ordered By: Group Home Paraprofessional on 2012-10-25 25-Hydroxyvitamin 23.5 30.0-100.0 ng/mL Abnormal 10-25-2012 [facility] D2+25-Hydroxyvitamin D3 Internal Medicine mass conc (12998) Comment: Vitamin D deficiency has bee n defined by the [place] ofMedicine and an Endocrine Society practice g uideline as alevel of serum 25-OH vitamin D less than 20 ng/mL (1,2).The Endo crine Society went on to further define vitamin Dinsufficiency as a level be tween 21 and 29 ng/mL (2).1. IOM ([place] of Medicine). 2010. Dietary ref erence intakes for calcium and D. [place]: The National Academies Press .2. Ezra MF, Griselda NC, Asad FELDMAN, et al. Evaluation, treatment , and prevention of vitamin D deficiency: an Endocrine Society clinical p nimesh guideline. JCEM. 2010; 96(7):1911-30. PATIENT NOT FASTINGPERFORMED BY: CB [facility] Ofcyne8874 [facility] [id number] tsh (48750) Ordered By: Group Home Paraprofessional on 2012-10-25 Thyrotropin Qn 1.560 0.450-4.500 {uIU/mL} Normal 10-25-2012 [facility] ( 66739) Comment: PATIENT NOT FASTINGPERFORMED BY: CB [facility] Hlqjfq6522 [facility] [id number] Information: [id number] urine matt culture-identificatn (06517) Ordered By: Group Home Paraprofessional on 2010-08-10 Bacteria identified Cx Nom MUG Normal [facility] Internal Medicine (U) (07980) Comment: Mixed urogenital farzaneh PATIENT NOT FASTINGPERFORMED BY: JONNY [facility] Ximytl4970 [facility] [id number] Information: [id number] Bacteria identified Cx Final report Normal 07-23 [facility] Internal Nom (U) Medicine ( 53291) Comment: PATIENT NOT FASTINGPERFORMED BY: JONNY [facility] Utttey5706 [facility] [id number] Information: [id number] urinalysis, office (52970) on 2010-08-10 Bilirubin Ql (U) Small Normal 08-10-2010 [facility] m[facility] Internal Medicine ( 14462) Glucose Test strip mass Negative Normal 2009 [facility] Internal conc (U) Medicine ( 09522) Hemoglobin Ql (U) Negative Normal 08-10-2010 C omprehensive Internal Medicine ( 57993) Ketones Ql (U) Negative Normal 08-10-2010 Comp rehensive Internal Medicine ( 17366) Leukocyte esterase Test Trace Normal 2009 [facility] Internal strip Ql (U) Medicin e (65321) Nitrite Ql (U) Negative Normal 08-10-2010 Comp rehensive Internal Medicine ( 04209) pH (U) 8.5 1 Normal 08-10-2010 Comprehen sive Internal Medicine ( 72179) Protein Ql (U) 100 mg/dL Normal 08-10-2010 Comp rehensive Internal Medicine ( 42497) Specific gravity Relative 1.015 1 Normal 07-23 [facility] Internal Density (U) Medicine (40124) Urobilinogen mass/time 4 mg/dL Normal 010 [facility] Internal (24H U) Medicine ( 00747) thin prep pap (69265) Ordered By: Group Home Paraprofessional on 2010-08-10 Microscopic observation Other . Normal 08-10-2010 [facility] Internal Medicine stain Nom (Unsp spec) (31460) Comment: Source.............Cervical; EndocervicalNo. of containers..01 CYTYC Thin Prep VialPERFORMED BY: LUIS EDUARDO Quesada [facility] Leknbyjfsx800 [facility] [id number] BY: =G [facility] Rhdtfosjbm481 [facility] [id number] Information: [id number] Pathology report final SPRCS Abnormal 010 Comprehensive Internal diagnosis [facility] (71747) Comment: EPITHELIAL CELL ABNORMALITY. LOW-GRADE SQUAMOUS INTRAEPITHELIAL LESION (LGSIL); MILD DYSPLASIA ISPR ESENT.Satisfactory for evaluation. Endocervical and/or squamous metaplasticc ells (endocervical component) are present.V72.31 ; Routine gynecological exam [facility], Soyfreeze Operator (ASCP)Mary Barbour MD, [facility] hologist Source.............Cervical; EndocervicalNo. of containers..01 CYTYC Thin Prep VialPERFORMED BY: WB Sangita [employer] Grhcmtgged640 [address] [place] [id number] BY: =G [facility] Vyoavieeud763 [address] PlazaBoston [facility]err[facility] [place] [id number] Information: [id number] Protein mass conc [facility] Normal 08-10-2010 C [facility] Internal Medicine (88301) Comment: 795.03The Pap smear is a scr eening test designed to aid in the detection ofpremalignant and malignant conditions of the uterine cervix. It is not adiagnostic procedure and sh ould not be used as the sole means of detectingcervical cancer. Zain th false-positive and false-negative reports do occur. .See below for HPV DN A testing results. . Source.............Cervical; EndocervicalNo. of containers..01 CYTYC Thin Prep VialPERFORMED BY: WB Sangita CallYourP[employer]emartita Hwexbgblwh782 [address] [id number] BY: =G [facility] Xeinilmpfo962 [address] [id number] Information: [id number] SPRCS Normal 08-10-2010 [facility] Internal Medicine (06517) Comment: 795.03The Pap smear is a scr eening test designed to aid in the detection ofpremalignant and malignant conditions of the uterine cervix. It is not adiagnostic procedure and sh ould not be used as the sole means of detectingcervical cancer. Zain th false-positive and false-negative reports do occur. .See below for HPV DN A testing results. . Source.............Cervical; EndocervicalNo. of containers..01 CYTYC Thin Prep VialPERFORMED BY: Sangita CallYourPricemartita MooneyTfdtmgunzw126 [facility] [place] W [id number] BY: =G [facility] Iszzdzxyxu163 [facility] W [id number] Information: [id number] hpv, high-risk Order ed By: Group Home Paraprofessional on 2010-08-10 HPV Positive Abnormal 08-10-2010 [facility] 16+18+31+33+35+39+45+51+52+56+58+59+68 Internal DNA Probe+sig amp Ql (Cvx) Medicine (59828) Comment: This high-risk HPV test dete cts thirteen high-risk types(16/18/31/33/35/39/45/5 1/52/56/58/59/68) without differentiation. . Source.............Cervical; EndocervicalNo. of containers..01 CYTYC Thin Prep VialPERFORMED BY: [facility] CallYourPricemartita MooneyUpzsnictal614 [facility] W [id number] BY: =G [facility] Alimsfgmzp273 [facility] W [id number] hcg quant. Ordered B y: Group Home Paraprofessional on 2010-05-09 < 1 Normal 05-09-2010 [facility] Internal Medicine (57616) l/s spine,min 4 views (mt) Ordered By: Group Home Paraprofessional on 2009-07-21 See Note Normal 07-21-2009 [facility] Internal Medicine (86974) Comment: Exam Number: [id number] CLINI KENAN:23-year-old male with low back pain X-RAY EXAMINATION: LUMBAR SPINE TE CHNIQUE:Five views (AP, Lateral, oblique and coned down lumbosacral views ) of the lumbar spine were obtained. COMPARISON:None. FINDINGS:Th ere is a normal lumbar lordosis. There is no scoliosis. There is no compr ession deformity, fracture or osseous destructive process. L1-2, L 2-3, L3-4, L4-5, and L5-S1: There is preservation of the interver tebral disc space heights. There is no endplate spondylosis or substantial f acet arthrosis. Normal alignment of the lumbar vertebrae, without a spondyl olisthesis, or spondylolysis. Normal bilateral sacroiliac joints without ar ticular narrowing, sclerosis, erosions or osseous abnormality. Normal visualized soft tissue. IMPRESSION:Normal plain film x-ray examination of th e lumbar spine. Reported By: FRANCHESKA JAMES Dr. calcifediol (76028) Ordered By: Brandee Del Rio on 2009-07-09 Calcitriol mass conc 32.1 32.0-100.0 ng/mL Normal 07-09-20 09 [facility] Medicine ( 42680) Comment: Recent studies consider the lower limit of 32.0 ng/mL to be athreshold for optimal health.[place] MEEHAN. J Nutr. 2004;135(2):317-22. Draw around Jul 06 2009; DAVID MORSE NOT FASTINGClinical Information: ADD 735355, [id number] PERFORMED BY: [employer]70 [facility] [id number] vitamin b-12 (cyanocobalamin) (29095) Ordered By: Brandee Del Rio on 2009-03-29 Cobalamin (Vitamin B12) 430 211-911 pg/mL Normal 2008 [facility] Internal mass conc Medicine ( 96477) Comment: PATIENT NOT FASTINGPERFORMED BY: [employer] LabZUtA Labsrp Fcbksi75[address] [facility] [place] [id number] tsh (46454) Ordered By: Brandee Del Rio on 2009-03-29 Thyrotropin Qn 2.130 0.450-4.500 {uIU/mL} Normal 03-29-2009 [facility] Internal Medicine ( 48988) Comment: PATIENT NOT FASTINGPERFORMED BY: [employer] LabZUtA Labsrp Kwtbtw1853 [address]uin [place] [id number] sed rate erythrocyte (31855) Ordered By: Brandee Del Rio on 2009-03-29 ESR Velocity (Bld) 2 0-20 mm/h Normal 03-29-2009 [facility] (52500) Comment: PATIENT NOT FASTINGPERFORMED BY: JONNY [facility] Najwxi7751 [facility] [id number] rheumatoid factor-quant (51796) Ordered By: Brandee Del Rio on 2009-03-29 Rheumatoid factor Qn 6.4 0.0-13.9 {IU/mL} Normal 9 [facility] Medicine ( 77850) Comment: PATIENT NOT FASTINGPERFORMED BY: [facility] Nsgllz4219 [facility] [id number] metabolic panel, comprehensive (24811) Ordered By: Brandee Del Rio on 2009-03-29 Albumin mass conc 5.2 3.5-5.5 g/dL Normal 03-29-2009 C omprehensive Internal Medicine (20749) Comment: PATIENT NOT FASTINGClinical Information: ADD DRAW FEE 167148,[id number] PERFORMED BY: JONNY [facility] Dub pas0038 [facility] [id number] Albumin/Globulin mass ratio 2.0 1.1-2.5 1 Normal [facility] Medicine ( 99645) Comment: PATIENT NOT FASTINGClinical Information: ADD DRAW FEE 410119,[id number] PERFORMED BY: JONNY [facility] Dub jzp1137 [facility] [id number] ALP enzyme act/vol 68 25-150 [iU]/L Normal 03-29-2009 [facility] (30746) Comment: PATIENT NOT FASTINGClinical Information: ADD DRAW FEE 326941,[id number] PERFORMED BY: [facility] Dub jtz0549 [facility] [id number] ALT enzyme act/vol 14 0-40 [iU]/L Normal 03-29-2009 [facility] Medicine (83578) Comment: PATIENT NOT FASTINGClinical Information: ADD DRAW FEE 030890,[id number] PERFORMED BY: [facility] Dub rnc4494 [facility] [id number] AST enzyme act/vol 18 0-40 [iU]/L Normal 03-29-2009 [facility] Medicine (13043) Comment: PATIENT NOT FASTINGClinical Information: ADD DRAW FEE 411765,[id number] PERFORMED BY: CB [facility] Dub cfl1489 [facility] [place] [id number] Bilirubin mass conc 1.2 0.1-1.2 mg/dL Normal 03-29-2009 [facility] Internal Medicine ( 24317) Comment: PATIENT NOT FASTINGClinical Information: ADD DRAW FEE 635539,[id number] PERFORMED BY: CB [facility] Dub [id number] [facility] [id number] Calcium mass conc 10.3 8.5-10.6 mg/dL Normal 03-29-2009 C [facility] Internal Medicine ( 48224) Comment: PATIENT NOT FASTINGClinical Information: ADD DRAW FEE 621430,[id number] PERFORMED BY: CB [facility] Dub ssi5135 [facility] [id number] Chloride molar conc 104 97-108 mmol/L Normal 03-29-2009 [facility] Internal Medicine ( 18349) Comment: PATIENT NOT FASTINGClinical Information: ADD DRAW FEE 004130,[id number] PERFORMED BY: CB [facility] Dub ywy3881 [facility] [id number] CO2 molar conc 21 20-32 mmol/L Normal 03-29-2009 [facility] Internal Medicine (62901) Comment: PATIENT NOT FASTINGClinical Information: ADD DRAW FEE 413803,[id number] PERFORMED BY: CB [facility] Dub odr4371 [facility] [id number] Creatinine mass conc 0.78 0.57-1.00 mg/dL Normal 9 [facility] Internal Medicine ( 48273) Comment: PATIENT NOT FASTINGClinical Information: ADD DRAW FEE 522088,[id number] PERFORMED BY: CB [facility] Dub xpc0111 [facility] [id number] GFR/1.73 sq M >59 mL/min/{1.73_m2} Normal 9 [facility] Internal predicted among [facility] (27633) blacks MDRD vol rate/area (S/P/Bld) Comment: Note: Persistent reduction f or 3 months or more in an eGFR<60 mL/min/1.73 m2 defines CKD. Patients with e GFR values>/=60 mL/min/1.73 m2 may also have CKD if evidence of persistentpro teinuria is present. Additional information may be found [email or web address]. PATIENT NOT FASTINGClinical Information: ADD DRAW FEE 141995,[id number] PERFORMED BY: CB [facility] Dub muw6988 [address] [place] [id number] GFR/1.73 sq >59 mL/min/{1.73_m2} Normal 03-29-2009 [facility] Internal M.predicted MDRD Med [facility] (10647) (S/P/Bld) [Vol rate/Area] Comment: PATIENT NOT FASTINGClinical Information: ADD DRAW FEE 381943,[id number] PERFORMED BY: CB [facility] Dub [id number] [address] [place] [id number] GFR/1.73 sq >59 mL/min/{1.73_m2} Normal 03-29-2009 [facility] Internal M.predicted MDRD vol [facility] (70646) rate/area Comment: PATIENT NOT FASTINGClinical Information: ADD DRAW FEE 796463,[id number] PERFORMED BY: CB [facility] Dub duo1421 [facility] [place] [id number] Globulin mass conc (S) 2.6 1.5-4.5 g/dL Normal 009 [facility] Internal Medicine ( 93015) Comment: PATIENT NOT FASTINGClinical Information: ADD DRAW FEE 394516,[id number] PERFORMED BY: CB [facility] Dub dba2214 [facility] [place] [id number] Glucose mass conc 91 65-99 mg/dL Normal 03-29-2009 [facility] (24278) Comment: PATIENT NOT FASTINGClinical Information: ADD DRAW FEE 466281,[id number] PERFORMED BY: CB [facility] Dub [id number] [facility] [place] [id number] Potassium molar conc 4.3 3.5-5.2 mmol/L Normal 9 [facility] Medicine ( 31920) Comment: PATIENT NOT FASTINGClinical Information: ADD DRAW FEE 437191,[id number] PERFORMED BY: CB [facility] Dub [id number] [facility] [id number] Protein mass conc 7.8 6.0-8.5 g/dL Normal 03-29-2009 C [facility] Internal Medicine (83071) Comment: PATIENT NOT FASTINGClinical Information: ADD DRAW FEE 160475,[id number] PERFORMED BY: CB [facility] Dub vvd3900 [facility] [id number] Sodium molar conc 141 135-145 mmol/L Normal 03-29-2009 C [facility] Internal Medicine ( 27987) Comment: PATIENT NOT FASTINGClinical Information: ADD DRAW FEE 352338,[id number] PERFORMED BY: CB [facility] Dub [id number] [address] [facility] [place] [id number] Urea nitrogen mass conc 11 5-26 mg/dL Normal 2008 [facility] Medicine ( 29455) Comment: PATIENT NOT FASTINGClinical Information: ADD DRAW FEE 185141,[id number] PERFORMED BY: CB [facility] Dub [id number] [facility] [id number] Urea nitrogen/Creatinine mass 14 8-27 1 Normal 03-29-2009 [facility] Internal ratio Medicine ( 38459) Comment: PATIENT NOT FASTINGClinical Information: ADD DRAW FEE [id number] PERFORMED BY: CB [facility] Dub [id number] [facility] [id number] lqd pap [id number] Order ed By: Group Home Paraprofessional on 2009-03-29 . 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 Endocervical and/or squamous metaplasticcells (endocervical component) are present. CYTOLOGY INFORMATION:- CLINI KENAN INFORMATION: - DATE LMP/MENOPAUSE: 03/17/09 LMP- COLLECTION VIAL: Thin P rep Vial- RUBBER FACTORY WORKER SOURCE: CERVICAL/ENDOCERVICAL- COLLECTION TECHNIQUE: BRUSH/ SPATULA Carmel Leung Cytotechnolog ist (ASCP) The Pap smear is a screening test designed to aid in thedetection of premalignant and malignant c onditions of theuterine cervix. It is not a diagnostic procedure andshou ld not be used as the sole means of detecting cervicalcancer. Both false-p ositive and false-negative reports dooccur. . The HPV DNA reflex criteria were not met with this specimenresult therefore, no HPV testing was performed . .Performed At: [address], [place] [id number] 8 NEGATIVE FOR INTRAEPITHELIAL LESION AND MALIGNANCY.FUNGAL ORGANISMS MORPHOLOGICALLY CONSISTENT [facility] ANDREE SPECIES AREPRESENT. folate (87047) Order ed By: Brandee Del Rio on 2009-03-29 Folate mass conc 7.4 ng/mL Normal 03-29-2009 [facility] mprehensive Internal Medicine (43994) Comment: Indeterminate: 3.4 - 5.4 Def icient: <3.4 PATIENT NOT FASTINGPERFORMED BY: CB [facility] Wngwrd0903 [address] [place] [id number] cbc (auto) (30054) O rdered By: Brandee Del Rio on 2009-03-29 Erythrocyte distribution 14.5 11.7-15.0 % Normal 03-29 Comprehensive Internal width Ratio (RBC) Me dicine (59687) Comment: PATIENT NOT FASTINGPERFORMED BY: CB [facility] Rxuphp4385 [address] [place] [id number] Hematocrit Volume 42.5 34.0-44.0 % Normal 03-29-2009 C omprehensive Internal Fraction (Bld) Medic ine (10070) Comment: PATIENT NOT FASTINGPERFORMED BY: CB [facility] Tayxyu3423 [address] [place] [id number] Hemoglobin mass conc 14.9 11.5-15.0 g/dL Normal 9 [facility] Internal (Bld) Medicine ( 23292) Comment: PATIENT NOT FASTINGPERFORMED BY: CB [facility] Ppvqit5497 [address] WiseNetworksD[place] [id number] MCH Entitic mass (RBC) 31.4 27.0-34.0 pg Normal 009 [facility] Internal Medicine ( 02371) Comment: PATIENT NOT FASTINGPERFORMED BY: CB [facility] Vzetxm2697 [address] WiseNetworksD[place] [id number] MCHC mass conc (RBC) 35.1 32.0-36.0 g/dL Normal 9 [facility] Internal Medicine ( 95290) Comment: PATIENT NOT FASTINGPERFORMED BY: JONNY [facility] Mrwzia2320 [address] [place] [id number] MCV Entitic volume (RBC) 90 80-98 fL Normal 03-29 [facility] Internal Medicine ( 40302) Comment: PATIENT NOT FASTINGPERFORMED BY: CB [facility] Emkjfx4160 [address] [place] [id number] Platelets #/vol 262 140-415 {x10E3/uL} Normal 03-29-2009 [facility] ( 11495) Comment: Please note reference inte rval change PATIENT NOT FASTINGPERFORMED BY: CB [facility] Eayuyf5850 [address] [facility] [id number] RBC #/vol (Bld) 4.75 3.80-5.10 {x10E6/uL} Normal 03-29-2009 [facility] Internal Medicine ( 72779) Comment: PATIENT NOT FASTINGPERFORMED BY: CB [facility] Rprfpk0573 [address] [facility] [place] [id number] WBC #/vol (Bld) 4.9 4.0-10.5 {x10E3/uL} Normal 03-29-2009 [facility] Internal Medicine ( 46326) Comment: PATIENT NOT FASTINGPERFORMED BY: CB [facility] Biksxe4923 [facility] [id number] calcifediol (58233) Ordered By: Brandee Del Rio on 2009-03-29 Calcitriol mass conc 22.8 32.0-100.0 ng/mL Abnormal 03-29-20 09 [facility] Medicine ( 93814) Comment: Recent studies consider the lower limit of 32.0 ng/mL to be athreshold for optimal health.[place] MEEHAN. J Nutr. 2005 Nov;135(2):317-22. PATIENT NOT FASTINGPERFORMED BY: CB [facility] Mxhceq3015 [facility] [id number] c-reactive protein (28119) Ordered By: Brandee Del Rio on 2009-03-29 CRP mass conc 0.4 0.0-4.9 mg/L Normal 03-29-2009 Compr ehensive Internal Medicine (56923) Comment: PATIENT NOT FASTINGPERFORMED BY: JONNY [facility] Fhpwxn6976 [address]ublin [place] [id number] francine (antinuclear antibody) (99022) Ordered By: Brandee Del Rio on 2009-03-29 Nuclear Ab Ql (S) Negative Normal 03-29-2009 [facility] (46838) Comment: PATIENT NOT FASTINGPERFORMED BY: JONNY [facility] [id number] [address] RoadDublin [place] [id number] urine culture,comprehensive Ordered By: Group Home Paraprofessional on 2009-03-24 Bacteria identified Cx Nom [id number] Normal [facility] Internal (U) Medicine ( 56877) Comment: No growth in 36 - 48 hours. PATIENT NOT FASTINGClinical Information: SRC:UR ADD [id number] PERFORMED BY: JONNY [facility] [id number] adDubk[facility] [place] [id number] Bacteria identified Cx Final report Normal [facility] Internal Nom (U) Medicine ( 41839) Comment: PATIENT NOT FASTINGClinical Information: SRC:UR ADD [id number] PERFORMED BY: JONNY [facility] [id number] adDubH[facility] [id number] urinalysis, office (92228) on 2009-03-24 Bilirubin Ql (U) Negative Normal 03-24-2009 [facility] ( 68694) Glucose Test strip mass Negative Normal 2008 [facility] conc (U) Medicine ( 51281) Hemoglobin Ql (U) Negative Normal 03-24-2009 [facility] ( 08117) Ketones Ql (U) Negative Normal 03-24-2009 Comp rehensive Internal Medicine ( 73611) Leukocyte esterase Test Negative Normal 2008 [facility] Internal strip Ql (U) Medicin e (67696) Nitrite Ql (U) Negative Normal 03-24-2009 [facility] rehensive [facility] Medicine ( 53644) pH (U) 7.0 1 Normal 03-24-2009 Comprehen sive Internal Medicine ( 93745) Protein Ql (U) Negative Normal 03-24-2009 [facility] rehens[facility] Medicine ( 28622) Specific gravity Relative 1.015 1 Normal 06-0 [facility] Density (U) Medicine (55141) Urobilinogen mass/time (24H Normal Normal [facility] U) Medicine ( 80420) urinalysis, office (36382) on 2008-08-06 Bilirubin Ql (U) Small Normal 08-06-2008 [facility] (55476) Comment: normal Glucose Test strip mass Negative Normal 2007 [facility] conc (U) Medicine ( 69126) Comment: normal Hemoglobin Ql (U) Negative Normal 08-06-2008 [facility] (04477) Comment: normal Ketones Ql (U) Small Normal 08-06-2008 [facility] (78857) Comment: normal Leukocyte esterase Test Negative Normal 2007 [facility] Internal strip Ql (U) Medicin e (18675) Comment: aw normal Nitrite Ql (U) Negative Normal 08-06-2008 [facility] (34856) Comment: normal pH (U) 6.0 1 Normal 08-06-2008 [facility] Internal Medicine (34575) Comment: normal Protein Ql (U) 30 mg/dL Normal 08-06-2008 [facility] (07812) Comment: normal Specific gravity Relative 1.025 1 Normal 07-22 [facility] Medicine Density (U) (17919) Comment: normal Urobilinogen mass/time (24H Normal Normal [facility] U) Medicine ( 66524) Comment: normal lipid panel (81149) Ordered By: Henrietta Collazo on 2008-07-02 Cholesterol in HDL mass 52 40-59 mg/dL Normal 2007 [facility] conc Medicine ( 18839) Comment: PATIENT WAS FASTINGClinical Information: ADD DRAW FEE [id number] ADD J 45559 PERFORMED BY: CB [facility] Dub [id number] [facility] [id number] Cholesterol in LDL mass 95 0-99 mg/dL Normal 2007 [facility] conc Medicine ( 86164) Comment: PATIENT WAS FASTINGClinical Information: ADD DRAW FEE [id number] ADD J 77100 PERFORMED BY: CB [facility] Dub [id number] [facility] [id number] Cholesterol in 1.8 0.0-3.2 {ratio_units} Normal 07-02-2008 Comprehensive LDL/Cholesterol in HDL Internal Medicine mass ratio (17997) Comment: PATIENT WAS FASTINGClinical Information: ADD DRAW FEE [id number] ADD J [id number] PERFORMED BY: CB [facility] Dub [id number] [address] RoadNovant [facility] Centerin [place] [id number] Cholesterol in VLDL mass 21 5-40 mg/dL Normal 07-02 [facility] Internal conc Medicine ( 73037) Comment: PATIENT WAS FASTINGClinical Information: ADD DRAW FEE 189933 ADD J 03326 PERFORMED BY: CB [facility] Dub [id number] [address] RoadNovant Health [facility] Centerin [place] [id number] Cholesterol mass conc 168 100-199 mg/dL Normal 07-02-20 08 [facility] ( 44407) Comment: PATIENT WAS FASTINGClinical Information: ADD DRAW FEE [id number] ADD J 63036 PERFORMED BY: CB [facility] Dub [id number] [address] [facility] [place] [id number] Triglyceride mass conc 107 0-149 mg/dL Normal 008 [facility] Medicine ( 88276) Comment: PATIENT WAS FASTINGClinical Information: ADD DRAW FEE [id number] ADD J [id number] PERFORMED BY: CB [facility] Dub [id number] [facility] [id number] Vital Signs Vital Sign Description Value / Unit Date Location The following section is limited to 5 en tries per type and includes entries from the following time range: 20190811 - 9. BMI (Body Mass Index) 25.06 kg/m2 06-30-2020 [facility] (97038) BMI (Body Mass Index) 25.06 kg/m2 06-11-2020 [facility] (03937) BMI (Body Mass Index) 25.06 kg/m2 06-04-2020 [facility] (98937) BMI (Body Mass Index) 24.44 kg/m2 04-29-2020 [facility] (24167) BMI (Body Mass Index) 24.59 kg/m2 09-02-2019 [facility] (40406) Body Temperature 96.8 [degF] 06-30-2020 [facility] I nternal Medicine (52657) Body Temperature 96.8 [degF] 06-11-2020 [facility] nternal [facility] (03128) Body Temperature 97.1 [degF] 04-29-2020 [facility] I nternal Medicine (45879) Body Temperature 97.1 [degF] 09-02-2019 [facility] nternal Medicine (01428) Body Temperature 97.3 [degF] 08-11-2019 [facility] I nternal Medicine (16591) Body weight 72.59 kg 06-30-2020 [facility] In ternal Medicine (85051) Body weight 72.59 kg 06-11-2020 [facility] In ternal Medicine (06688) Body weight 72.59 kg 06-04-2020 [facility] In ternal Medicine (17115) Body weight 70.77 kg 04-29-2020 [facility] In ternal Medicine (38593) Body weight 71.23 kg 09-02-2019 [facility] In ternal Medicine (84343) BP Diastolic 72 mm[Hg] 06-30-2020 [facility] In [facility]al [facility] (47850) BP Diastolic 72 mm[Hg] 06-11-2020 [facility] In [facility]al Medicine (49523) BP Diastolic 80 mm[Hg] 04-29-2020 [facility] In [facility]al Medicine (93870) BP Diastolic 70 mm[Hg] 09-02-2019 [facility] In ternal Medicine (87073) BP Diastolic 68 mm[Hg] 08-11-2019 [facility] In ternal Medicine (95541) BP Systolic 118 mm[Hg] 06-30-2020 [facility] In ternal Medicine (93522) BP Systolic 120 mm[Hg] 06-11-2020 [facility] In ternal Medicine (05541) BP Systolic 111 mm[Hg] 04-29-2020 [facility] In ternal Medicine (69172) BP Systolic 112 mm[Hg] 09-02-2019 [facility] In ternal Medicine (59491) BP Systolic 112 mm[Hg] 08-11-2019 [facility] In ternal Medicine (83141) BSA (Body Surface Area) 1.84 m2 06-30-2020 Comprehe nsive Internal Medicine (38490) BSA (Body Surface Area) 1.84 m2 06-11-2020 Compre[facility] nsive Internal Medicine (21583) BSA (Body Surface Area) 1.84 m2 06-04-2020 Compre[facility] nsive Internal Medicine (86512) BSA (Body Surface Area) 1.82 m2 04-29-2020 Comprehe nsive Internal Medicine (08859) BSA (Body Surface Area) 1.82 m2 09-02-2019 Comprehe nsive Internal Medicine (63939) Head Circumference 0 cm 07-26-2009 [facility] (69895) Head Circumference 0 cm 07-21-2009 [facility] (93262) Head Circumference 0 cm 07-16-2009 [facility] (28517) Head Circumference 0 cm 07-09-2009 [facility] (31582) Head Circumference 0 cm 04-05-2009 [facility] (06281) Height 170.18 cm 06-30-2020 Comprehensive In ternal Medicine (07518) Height 170.18 cm 06-11-2020 [facility] In ternal Medicine (81374) Height 170.18 cm 06-04-2020 [facility] In ternal Medicine (95877) Height 170.18 cm 04-29-2020 [facility] In ternal Medicine (82415) Height 170.18 cm 09-02-2019 [facility] In ternal Medicine (66036) Pulse (Heart Rate) 62 /min 06-30-2020 [facility] (65873) Pulse (Heart Rate) 61 /min 06-11-2020 [facility] (81169) Pulse (Heart Rate) 74 /min 04-29-2020 [facility] (04265) Pulse (Heart Rate) 79 /min 09-02-2019 [facility] (77208) Pulse (Heart Rate) 91 /min 08-11-2019 [facility] (38144) Pulse Oximetry 96 % 06-30-2020 [facility] In ternal Medicine (52612) Pulse Oximetry 98 % 06-11-2020 [facility] In ternal Medicine (87891) Pulse Oximetry 93 % 04-29-2020 [facility] In ternal Medicine (09922) Pulse Oximetry 98 % 09-02-2019 [facility] In ternal Medicine (47804) Pulse Oximetry 99 % 08-11-2019 [facility] In [facility]al Medicine (46648) Respiratory Rate 16 /min 06-30-2020 [facility] I nternal Medicine (44187) Respiratory Rate 16 /min 06-11-2020 [facility] I nternal Medicine (72749) Respiratory Rate 16 /min 04-29-2020 [facility] I nternal Medicine (76966) Respiratory Rate 16 /min 09-02-2019 [facility] I nternal Medicine (90753) Respiratory Rate 17 /min 08-11-2019 Comprehensive I nternal Medicine (77278) Encounters Date Type Reason Provider Location 09-01-2019 Annotation/Addend Encounter for Comprehen sive - um screening for lipid Internal Medicine 09-01-2019 disorder 03-30-2009 Annotation/Addend Unspecified vitamin D C omprehensive - um deficiency Internal Medici ne 03-30-2009 06-25-2009 Historical Comprehensive - Summary Internal Medici ne 06-25-2009 06-30-2020 Office outpatient [facility]prehens essence - visit 10 minutes Internal Me dicine 06-30-2020 06-11-2020 Office outpatient [facility] - visit 10 minutes Internal [place] dicine 06-11-2020 08-01-2019 Office outpatient BMI 22.0-22.9, adult Co mprehensive - visit 10 minutes Internal Me dicine 08-01-2019 03-29-2009 Office outpatient [facility]prehens essence - visit 10 minutes Internal Me dicine 03-29-2009 06-04-2020 Office outpatient [facility] - visit 15 minutes Internal Me dicine 06-04-2020 04-29-2020 Office outpatient [facility]prehens essence - visit 15 minutes Internal Me dicine 04-29-2020 08-11-2019 Office outpatient [facility] - visit 15 minutes Internal Me dicine 08-11-2019 06-13-2019 Office outpatient [facility] essence - visit 15 minutes Internal Me dicine 06-13-2019 01-01-2019 Office outpatient [facility]prehens essence - visit 15 minutes Internal Me dicine 01-01-2019 07-02-2018 Office outpatient [facility] essence - visit 15 minutes Internal Me dicine 07-02-2018 04-22-2018 Office outpatient Comprehens essence - visit 15 minutes Internal Me dicine 04-22-2018 01-11-2015 Office outpatient [facility]prehens essence - visit 15 minutes Internal Me dicine 01-11-2015 12-14-2014 Office outpatient [facility]prehens essence - visit 15 minutes Internal Me dicine 12-14-2014 11-09-2014 Office outpatient [facility] essence - visit 15 minutes Internal Me dicine 11-09-2014 04-07-2014 Office outpatient [facility] - visit 15 minutes Internal [place] dicine 04-07-2014 04-05-2009 Office outpatient [facility] - visit 15 minutes Internal [facility] dicine 04-05-2009 10-26-2014 Office outpatient [facility] - visit 25 minutes Internal [place] dicine 10-26-2014 08-06-2008 Office outpatient [facility] - visit 25 minutes Internal [place] dicine 08-06-2008 05-22-2007 Office outpatient [facility]prehens essence - visit 25 minutes Internal [facility] 05-22-2007 01-01-2019 Patient encounter Henrietta Collazo Compreh ensive procedure Henrietta Collazo Internal Med (23624) Henrietta Collazo 02-13-2014 Patient encounter [facility] - procedure Internal Medici ne 02-13-2014 07-23-2013 Patient encounter [facility] - procedure Internal Medici ne 07-28-2013 07-22-2013 Patient encounter [facility] - procedure Internal Medici ne 07-22-2013 07-07-2013 Patient encounter [facility] - procedure Internal Medici ne 07-07-2013 06-30-2013 Patient encounter [facility] - procedure Internal Medici ne 06-30-2013 04-03-2013 Patient encounter [facility] - procedure Internal Medici ne 04-03-2013 11-25-2012 Patient encounter [facility] - procedure Internal Medici ne 11-25-2012 10-25-2012 Patient encounter [facility] - procedure Internal Medici ne 10-25-2012 08-10-2010 Patient encounter [facility] - procedure Internal Medici ne 08-10-2010 05-09-2010 Patient encounter [facility] - procedure Internal Medici ne 05-09-2010 10-20-2009 Patient encounter [facility] - procedure Internal Medici ne 10-20-2009 07-26-2009 Patient encounter [facility] - procedure Internal Medici ne 07-26-2009 07-21-2009 Patient encounter [facility] - procedure Internal Medici ne 07-21-2009 07-16-2009 Patient encounter [facility] - procedure Internal Medici ne 07-16-2009 07-09-2009 Patient encounter [facility] - procedure Internal Medici ne 07-09-2009 03-31-2009 Patient encounter Other specified Compreh ensive - procedure noninflammatory Internal Med icine 03-31-2009 disorders of vagina 03-24-2009 Patient encounter [facility] - procedure Internal Medici ne 03-24-2009 07-02-2008 Patient encounter Other general medical C omprehensive - procedure examination for Internal Med icine 07-02-2008 administrative purposes (V70.3) 09-02-2019 Periodic Comprehensive - preventive med Internal Medi cine 09-02-2019 est patient 18-39 yrs 08-20-2017 Periodic Comprehensive - preventive med Internal Medi cine 08-20-2017 est patient 18-39 yrs 07-17-2017 Periodic Comprehensive - preventive med Internal Medi cine 07-17-2017 est patient 18-39 yrs 08-18-2016 Periodic Comprehensive - preventive med Internal Medi cine 08-18-2016 est patient 18-39 yrs 07-05-2016 Periodic Comprehensive - preventive med Internal Medi cine 07-05-2016 est patient 18-39 yrs 02-19-2015 Periodic Comprehensive - preventive med Internal Medi cine 02-19-2015 est patient 18-39 yrs 04-13-2020 Phone Encounter Amenorrhea, primary Compr ehensive - Internal Medici ne 04-13-2020 04-12-2020 Phone Encounter Amenorrhea, primary Compr ehensive - Internal Medici ne 04-12-2020 02-19-2015 Phone Encounter Irregular menstrual Compr ehensive - cycle Internal Medici ne 02-19-2015 06-30-[address] of [facility] - Abdomen(794.9) Internal Medi cine 06-30-2013 04-29-2020 Review Comprehensive Internal Medici ne Procedures Procedure Name Date Provider Location Shoulder min 2 Views 06-11-2020 - Henrietta Collazo Comprehensi ve Internal 06-11-2020 Medicine (09980) Emergency Department 03-16-2020 - Comprehensi ve Internal Summary 03-23-2020 Medicine (28965) Discharge Instruction 03-12-2020 - [facility] Internal 03-12-2020 Medicine (46916) Emergency Department 03-12-2020 - Comprehensi ve Internal Summary 03-18-2020 Medicine (06085) Venous Duplex Upper 01-01-2019 - Brandee Del Rio Comprehensiv e Internal Extremity 01-01-2019 Medicine (50872) Chest PA and Lateral 04-22-2018 - Mili Castro Comprehensi ve Internal 04-22-2018 Medicine (43307) Emergency Department 07-14-2017 - Comprehensi ve Internal Summary 07-14-2017 Medicine (98517) Cerv Spine 2 or 3 Views 07-14-2017 - Comprehe nsive Internal 07-14-2017 Medicine (70436) Stress Report 04-20-2017 - Comprehensive In ternal 04-20-2017 Medicine (46592) L/S Spine Bending 11-13-2014 - Comprehensive Internal Flex/Ext 11-14-2014 Medicine (37165) Spine Lumbar (Routine) 11-13-2014 - Comprehen sive Internal 11-13-2014 Medicine (30237) Plan of Treatment Plan Description Date Location Procedure Education Eprescribed prescriptions 06-30-2020 [facility] (G8553) Medicine (33286) NMR Profile (20832) NMR Profile (06835) 06-30-2020 Comprehe nsive Internal Medicine (78278) Procedure Education Eprescribed prescriptions 06-11-2020 [facility] (G8553) Medicine (04983) Provider Instructions for Follow up in 2 -3weeks- 06-11-2020 [facility] Internal Treatment possible shoulder Medicine (0325 1) injection Procedure Education Eprescribed prescriptions 06-04-2020 [facility] Internal (G8553) Medicine (28032) Provider Instructions for Reviewed Lab 06-04-2020 [facility] Medicine (21403) TSH (98717) TSH (99527) 04-29-2020 Comprehensive In ternal Medicine (13245) Procedure Education Eprescribed prescriptions 04-29-2020 [facility]G8553[facility] (20184) Provider Instructions for Follow up in 4 weeks 04-29-2020 C omprehensive Internal Treatment Medicine (88951) Procedure Education Eprescribed prescriptions 09-02-2019 [facility] (G8553[facility] Medicine (48525) Provider Instructions for no information 09-02-2019 [facility] (13512) TSH (THYROID STIMULATING TSH (THYROID STIMULATING 09-01-2019 Comprehensive Internal HORMONE) (27712) HORMONE) (51746) Medicine (4315 1) CBC & PLATELETS (AUTO) CBC & PLATELETS (AUTO) 09-01-2019 [facility] Internal (51663) (12612) Medicine (73745) GLUCOSE (11490) GLUCOSE (69365) 09-01-2019 Comprehensive In ternal Medicine (61043) LIPID PANEL (50163) LIPID PANEL (07754) 09-01-2019 Comprehe nsive Internal Medicine (28552) Procedure Education Eprescribed prescriptions 08-11-2019 [facility] (G8553[facility] Medicine (01609) Provider Instructions for no information 08-11-2019 [facility] Internal Treatment Medicine (25585) Sputum Culture (21208) Sputum Culture (05514) 08-11-2019 [facility] (22967) Procedure Education Eprescribed prescriptions 01-01-2019 Co [facility]rensive Internal (G8553) Medicine (92970) Patient Education Sore Throat *: upper 07-02-2018 Comprehen sive Internal respiratory infection Medicine ( 69157) Procedure Education Eprescribed prescriptions 07-02-2018 [facility] (G8553) Medicine (82150) Provider Instructions for Follow up if no 07-02-2018 Compre [facility] Internal Treatment improvement or if Medicine (4469 1) symptoms worsen Patient Education Sinusitis *: sinus 04-22-2018 Comprehensi ve Internal infection Medicine (18760) Procedure Education Eprescribed prescriptions 04-22-2018 Co mprensive Internal (G8553) Medicine (30332) Provider Instructions for no information 04-22-2018 [facility] Internal Treatment Medicine (66341) Provider Instructions for no information 07-17-2017 [facility] Internal Treatment Medicine (43000) Thin prep Pap (14051) (no Thin prep Pap (66541) (no 07-17-2017 [facility] Internal STD testing) STD testing) Medicine (40861) Provider Instructions for no information 08-18-2016 [facility] Internal Treatment Medicine (74366) Patient Education Adult Immunization 07-05-2016 Comprehensi ve Internal Schedule: adult Medicine (92575) immunization schedule Provider Instructions for no information 07-05-2016 [facility] Internal Treatment Medicine (70067) Provider Instructions for no information 02-19-2015 [facility] Internal Treatment Medicine (81676) Thin prep Pap (99658) (no Thin prep Pap (94661) (no 02-19-2015 [facility] Internal STD testing) STD testing) Medicine (19992) Provider Instructions for no information 12-14-2014 [facility] Internal Treatment Medicine (08065) Provider Instructions for Follow up if no 11-09-2014 [facility] Internal Treatment improvement or if Medicine (2608 1) symptoms worsen Provider Instructions for Follow up in 2 weeks 10-26-2014 [facility] (48741) Patient Education no information 04-07-2014 [facility] Internal Medicine (82395) Procedure Education Eprescribed prescriptions 04-07-2014 [facility] Internal (G8553) Medicine (48772) Provider Instructions for *URI Treatment 04-07-2014 [facility] Internal Treatment Medicine (83827) Thin prep Pap (36005) Thin prep Pap (11528) 02-13-2014 [facility] (94980) Provider Instructions for no information 02-13-2014 [facility] Internal Treatment Medicine (74008) Provider Instructions for Reviewed Diagnostic Tests 07-07-2013 [facility] Internal Treatment Medicine (22549) T4, FREE (THYROXINE) T4, FREE (THYROXINE) 06-30-2013 [facility] Internal (05861) (49575) Medicine (22227) T3, FREE (TRIDOTHYRONINE) T3, FREE (TRIDOTHYRONINE) 06-30-2013 [facility] Internal (72898) (50889) Medicine (25832) C-REACTIVE PROTEIN C-REACTIVE PROTEIN 06-30-2013 [facility] (17534) (86349) Medicine (42741) SED RATE ERYTHROCYTE SED RATE ERYTHROCYTE 06-30-2013 [facility] Internal (84905) (97839) Medicine (16098) TSH (24907) TSH (75221) 06-30-2013 Comprehensive In ternal Medicine (39476) METABOLIC PANEL, METABOLIC PANEL, 06-30-2013 [facility] Internal COMPREHENSIVE (09505) COMPREHENSIVE (78666) Medi cine (19103) CBC WITH MANUAL DIFF CBC WITH MANUAL DIFF 06-30-2013 [facility] Internal (16073) (04784) Medicine (35785) Provider Instructions for Solu Medrol Injection/ 04-03-2013 [facility] Internal Treatment Education Medicine (52118) Provider Instructions for Follow up in 1 month 11-25-2012 [facility] (29302) Provider Instructions for Follow up in 1 month 10-25-2012 [facility] (79540) Provider Instructions for no information 08-10-2010 [facility] Internal Treatment Medicine (76540) TEST - SERUM TEST - SERUM 05-09-2010 Co [facility] Internal QUANTITATIVE (HCG) QUANTITATIVE (HCG) Medicine ( 41146) (87308) (48216) Comment: pt can be reached Urine Test, Urine Test, 10-20-2009 Comp rehensive Internal Office (03222) Office (29853) Medicine (13323) Provider Instructions for Continue Current 07-26-2009 Compr ehensive Internal Treatment Prescription(s) Medicine (75444) Provider Instructions for no information 07-21-2009 Compre hensive Internal Treatment Medicine (07808) CALCIFEDIOL (04652) CALCIFEDIOL (74030) 03-30-2009 Comprehe nsive Internal Medicine (12550) Comment: Draw Jun 30 Provider Instructions for no information 03-29-2009 [facility] Internal Treatment Medicine (47927) thin prep (94132) (std thin prep (31115) (std 03-29-2009 [facility] Internal testing) testing) Medicine (66339) Provider Instructions for *fatigue education 03-24-2009 Com prehensive Internal Treatment Medicine (37968) Provider Instructions for no information 05-22-2007 Compre hensive Internal Treatment Medicine (14758) no information Comprehensive In ternal Medicine (65965) no information Comprehensive In ternal Medicine (33152) no information Comprehensive In ternal Medicine (68549) no information Comprehensive In ternal Medicine (16915) no information Comprehensive In ternal Medicine (03905) no information Comprehensive In ternal Medicine (58684) no information Comprehensive In ternal Medicine (63049) no information Comprehensive In ternal Medicine (67314) no information Comprehensive In ternal Medicine (91992) no information Comprehensive In ternal Medicine (82685) no information Comprehensive In ternal Medicine (08974) no information Comprehensive In ternal Medicine (51190) no information Comprehensive In ternal Medicine (40064) no information Comprehensive In ternal Medicine (23165) no information Comprehensive In ternal Medicine (97903) no information Comprehensive In ternal Medicine (27046) no information Comprehensive In ternal Medicine (34790) Immunizations Vaccine Notes Status Date Location Influenza (3 years influenza, (completed) 10-22-2016 - Comprehen sive Internal and up) seasonal, 10-22-2016 Medicine ([id number] ) injectable Comment: given at [employer] Payers Payer Name Policy Number Location [place] LILIYA/CHRISTIANO [id number] [employer] ([id number]) [employer] [id number] [employer] ([id number]) [employer] [id number] [employer] ([id number]) [facility] [id number] [facility] Int ernal Med ([id number]) [facility] [id number] [employer] ([id number]) [employer] ([id number]) [id number] [employer] ([id number]) Social History Type Social History Description Date Locat ion Caffeine Use [facility] ([id number]) Comment: occ Light Lives with parents Dog, Cat The following information is from the original human readable contentNo Social History Records Found Instructions Name Dates Details How to access health information online Start: 02-Sep-2019 Instruction Type: Patient Education Indication: Non-smoker How to access health information online - Detail Start: Aug-2019 Instruction Type: Patient Education Indication: Non-smoker Patient Instructions Start: 02-Sep-2019 Instruction Type: Provider Instructions for Treatment Indication: Non-smoker How to access health information online Start: 11-Aug-2019 Instruction Type: Patient Education Indication: Non-smoker How to access health information online - Detail Start: Jul-2019 Instruction Type: Patient Education Indication: Non-smoker Patient Instructions Start: 11-Aug-2019 Instruction Type: Provider Instructions for Treatment Indication: Non-smoker How to access health information online Start: 01-Aug-2019 Instruction Type: Patient Education Indication: Non-smoker Patient Instructions Start: 01-Aug-2019 Instruction Type: Provider Instructions for Treatment Indication: Non-smoker How to access health information online Start: 13-Jun-2019 Instruction Type: Patient Education Indication: Sore throat How to access health information online - Detail Start: May-2019 Instruction Type: Patient Education Indication: Sore throat Patient Instructions Start: 13-Jun-2019 Instruction Type: Provider Instructions for Treatment Indication: Sore throat How to access health information online Start: 01-Jan-2019 Instruction Type: Patient Education Indication: Non-smoker How to access health information online - Detail Start: Dec-2018 Instruction Type: Patient Education Indication: Non-smoker Patient Instructions Start: 01-Jan-2019 Instruction Type: Provider Instructions for Treatment Indication: Non-smoker How to access health information online Start: 02-Jul-2018 Instruction Type: Patient Education Indication: Non-smoker How to access health information online - Detail Start: Jun-2018 Instruction Type: Patient Education Indication: Non-smoker Patient Instructions Start: 02-Jul-2018 Instruction Type: Provider Instructions for Treatment Indication: Upper respiratory infection, acute How to access health information online Start: 22-Apr-2018 Instruction Type: Patient Education Indication: BMI 22.0-22.9, adult How to access health information online - Detail Start: Instruction Type: Patient Education Indication: BMI 22.0-22.9, adult Patient Instructions Start: 22-Apr-2018 Instruction Type: Provider Instructions for Treatment Indication: Cough How to access health information online Start: 20-Aug-2017 Instruction Type: Patient Education Indication: Non-smoker How to access health information online - Detail Start: Jul-2017 Instruction Type: Patient Education Indication: Non-smoker Patient Instructions Start: 20-Aug-2017 Instruction Type: Provider Instructions for Treatment Indication: Non-smoker How to access health information online Start: 17-Jul-2017 Instruction Type: Patient Education Indication: Non-smoker How to access health information online - Detail Start: Jun-2017 Instruction Type: Patient Education Indication: Non-smoker Patient Instructions Start: 17-Jul-2017 Instruction Type: Provider Instructions for Treatment Indication: Non-smoker Patient Instructions Start: 11-Jan-2015 Instruction Type: Provider Instructions for Treatment Indication: Back pain Patient Instructions Start: 14-Dec-2014 Instruction Type: Provider Instructions for Treatment Indication: Intervertebral disc protrusion Patient Instructions Start: 07-Apr-2014 Instruction Type: Provider Instructions for Treatment Indication: Sore throat Patient Instructions Start: 13-Feb-2014 Instruction Type: Provider Instructions for Treatment Indication: Well woman exam with routine gynecological exam Patient Instructions Start: 23-Jul-2013 Instruction Type: Provider Instructions for Treatment Indication: Low back pain potentially associated with radicu lopathy Patient Instructions Start: 22-Jul-2013 Instruction Type: Provider Instructions for Treatment Indication: Low back pain potentially associated with radicu lopathy Patient Instructions Start: 07-Jul-2013 Instruction Type: Provider Instructions for Treatment Indication: Weight gain Patient Instructions Start: 30-Jun-2013 Instruction Type: Provider Instructions for Treatment Indication: Abdominal pain, acute, right lower quadrant Patient Instructions Start: 03-Apr-2013 Instruction Type: Provider Instructions for Treatment Indication: Low back pain potentially associated with radicu lopathy Patient Instructions Start: 25-Nov-2012 Instruction Type: Provider Instructions for Treatment Indication: Depressive disorder Patient Instructions Start: 25-Oct-2012 Instruction Type: Provider Instructions for Treatment Indication: Depressive disorder Name Dates Details Non-smoker : How to access health information online Indication: Non-smoker Non-smoker : How to access health information online - Detai l Indication: Non-smoker Non-smoker : Patient Instructions Indication: Non-smoker Upper respiratory infection, acute : Patient Instructions Indication: Upper respiratory infection, acute BMI 22.0-22.9, adult : How to access health information onli ne Indication: BMI 22.0-22.9, adult BMI 22.0-22.9, adult : How to access health information onli ne - Detail Indication: BMI 22.0-22.9, adult Cough : Patient Instructions Indication: Cough Back pain : Patient Instructions Indication: Back pain Intervertebral disc protrusion : Patient Instructions Indication: Intervertebral disc protrusion Sore throat : Patient Instructions Indication: Sore throat Well woman exam with routine gynecological exam : Patient In structions Indication: Well woman exam with routine gynecological exam Low back pain potentially associated with radiculopathy : Pa jessicant Instructions Indication: Low back pain potentially associated with radicu lopathy Weight gain : Patient Instructions Indication: Weight gain Abdominal pain, acute, right lower quadrant : Patient Instru ctions Indication: Abdominal pain, acute, right lower quadrant Depressive disorder : Patient Instructions Indication: Depressive disorder Name Dates Details How to access health information online Start: 13-Jun-2019 Instruction Type: Patient Education Indication: Sore throat How to access health information online - Detail Start: May-2019 Instruction Type: Patient Education Indication: Sore throat Patient Instructions Start: 13-Jun-2019 Instruction Type: Provider Instructions for Treatment Indication: Sore throat How to access health information online Start: 01-Jan-2019 Instruction Type: Patient Education Indication: Non-smoker How to access health information online - Detail Start: Dec-2018 Instruction Type: Patient Education Indication: Non-smoker Patient Instructions Start: 01-Jan-2019 Instruction Type: Provider Instructions for Treatment Indication: Non-smoker How to access health information online Start: 02-Jul-2018 Instruction Type: Patient Education Indication: Non-smoker How to access health information online - Detail Start: Jun-2018 Instruction Type: Patient Education Indication: Non-smoker Patient Instructions Start: 02-Jul-2018 Instruction Type: Provider Instructions for Treatment Indication: Upper respiratory infection, acute How to access health information online Start: 22-Apr-2018 Instruction Type: Patient Education Indication: BMI 22.0-22.9, adult How to access health information online - Detail Start: Instruction Type: Patient Education Indication: BMI 22.0-22.9, adult Patient Instructions Start: 22-Apr-2018 Instruction Type: Provider Instructions for Treatment Indication: Cough How to access health information online Start: 20-Aug-2017 Instruction Type: Patient Education Indication: Non-smoker How to access health information online - Detail Start: Jul-2017 Instruction Type: Patient Education Indication: Non-smoker Patient Instructions Start: 20-Aug-2017 Instruction Type: Provider Instructions for Treatment Indication: Non-smoker How to access health information online Start: 17-Jul-2017 Instruction Type: Patient Education Indication: Non-smoker How to access health information online - Detail Start: Jun-2017 Instruction Type: Patient Education Indication: Non-smoker Patient Instructions Start: 17-Jul-2017 Instruction Type: Provider Instructions for Treatment Indication: Non-smoker Patient Instructions Start: 11-Jan-2015 Instruction Type: Provider Instructions for Treatment Indication: Back pain Patient Instructions Start: 14-Dec-2014 Instruction Type: Provider Instructions for Treatment Indication: Intervertebral disc protrusion Patient Instructions Start: 07-Apr-2014 Instruction Type: Provider Instructions for Treatment Indication: Sore throat Patient Instructions Start: 13-Feb-2014 Instruction Type: Provider Instructions for Treatment Indication: Well woman exam with routine gynecological exam Patient Instructions Start: 23-Jul-2013 Instruction Type: Provider Instructions for Treatment Indication: Low back pain potentially associated with radicu lopathy Patient Instructions Start: 22-Jul-2013 Instruction Type: Provider Instructions for Treatment Indication: Low back pain potentially associated with radicu lopathy Patient Instructions Start: 07-Jul-2013 Instruction Type: Provider Instructions for Treatment Indication: Weight gain Patient Instructions Start: 30-Jun-2013 Instruction Type: Provider Instructions for Treatment Indication: Abdominal pain, acute, right lower quadrant Patient Instructions Start: 03-Apr-2013 Instruction Type: Provider Instructions for Treatment Indication: Low back pain potentially associated with radicu lopathy Patient Instructions Start: 25-Nov-2012 Instruction Type: Provider Instructions for Treatment Indication: Depressive disorder Patient Instructions Start: 25-Oct-2012 Instruction Type: Provider Instructions for Treatment Indication: Depressive disorder Name Dates Details How to access health information online Start: 01-Aug-2019 Instruction Type: Patient Education Indication: Non-smoker Patient Instructions Start: 01-Aug-2019 Instruction Type: Provider Instructions for Treatment Indication: Non-smoker How to access health information online Start: 13-Jun-2019 Instruction Type: Patient Education Indication: Sore throat How to access health information online - Detail Start: May-2019 Instruction Type: Patient Education Indication: Sore throat Patient Instructions Start: 13-Jun-2019 Instruction Type: Provider Instructions for Treatment Indication: Sore throat How to access health information online Start: 01-Jan-2019 Instruction Type: Patient Education Indication: Non-smoker How to access health information online - Detail Start: Dec-2018 Instruction Type: Patient Education Indication: Non-smoker Patient Instructions Start: 01-Jan-2019 Instruction Type: Provider Instructions for Treatment Indication: Non-smoker How to access health information online Start: 02-Jul-2018 Instruction Type: Patient Education Indication: Non-smoker How to access health information online - Detail Start: Jun-2018 Instruction Type: Patient Education Indication: Non-smoker Patient Instructions Start: 02-Jul-2018 Instruction Type: Provider Instructions for Treatment Indication: Upper respiratory infection, acute How to access health information online Start: 22-Apr-2018 Instruction Type: Patient Education Indication: BMI 22.0-22.9, adult How to access health information online - Detail Start: Instruction Type: Patient Education Indication: BMI 22.0-22.9, adult Patient Instructions Start: 22-Apr-2018 Instruction Type: Provider Instructions for Treatment Indication: Cough How to access health information online Start: 20-Aug-2017 Instruction Type: Patient Education Indication: Non-smoker How to access health information online - Detail Start: Jul-2017 Instruction Type: Patient Education Indication: Non-smoker Patient Instructions Start: 20-Aug-2017 Instruction Type: Provider Instructions for Treatment Indication: Non-smoker How to access health information online Start: 17-Jul-2017 Instruction Type: Patient Education Indication: Non-smoker How to access health information online - Detail Start: Jun-2017 Instruction Type: Patient Education Indication: Non-smoker Patient Instructions Start: 17-Jul-2017 Instruction Type: Provider Instructions for Treatment Indication: Non-smoker Patient Instructions Start: 11-Jan-2015 Instruction Type: Provider Instructions for Treatment Indication: Back pain Patient Instructions Start: 14-Dec-2014 Instruction Type: Provider Instructions for Treatment Indication: Intervertebral disc protrusion Patient Instructions Start: 07-Apr-2014 Instruction Type: Provider Instructions for Treatment Indication: Sore throat Patient Instructions Start: 13-Feb-2014 Instruction Type: Provider Instructions for Treatment Indication: Well woman exam with routine gynecological exam Patient Instructions Start: 23-Jul-2013 Instruction Type: Provider Instructions for Treatment Indication: Low back pain potentially associated with radicu lopathy Patient Instructions Start: 22-Jul-2013 Instruction Type: Provider Instructions for Treatment Indication: Low back pain potentially associated with radicu lopathy Patient Instructions Start: 07-Jul-2013 Instruction Type: Provider Instructions for Treatment Indication: Weight gain Patient Instructions Start: 30-Jun-2013 Instruction Type: Provider Instructions for Treatment Indication: Abdominal pain, acute, right lower quadrant Patient Instructions Start: 03-Apr-2013 Instruction Type: Provider Instructions for Treatment Indication: Low back pain potentially associated with radicu lopathy Patient Instructions Start: 25-Nov-2012 Instruction Type: Provider Instructions for Treatment Indication: Depressive disorder Patient Instructions Start: 25-Oct-2012 Instruction Type: Provider Instructions for Treatment Indication: Depressive disorder Name Dates Details How to access health information online Start: 01-Aug-2019 Instruction Type: Patient Education Indication: Non-smoker Patient Instructions Start: 01-Aug-2019 Instruction Type: Provider Instructions for Treatment Indication: Non-smoker How to access health information online Start: 13-Jun-2019 Instruction Type: Patient Education Indication: Sore throat How to access health information online - Detail Start: May-2019 Instruction Type: Patient Education Indication: Sore throat Patient Instructions Start: 13-Jun-2019 Instruction Type: Provider Instructions for Treatment Indication: Sore throat How to access health information online Start: 01-Jan-2019 Instruction Type: Patient Education Indication: Non-smoker How to access health information online - Detail Start: Dec-2018 Instruction Type: Patient Education Indication: Non-smoker Patient Instructions Start: 01-Jan-2019 Instruction Type: Provider Instructions for Treatment Indication: Non-smoker How to access health information online Start: 02-Jul-2018 Instruction Type: Patient Education Indication: Non-smoker How to access health information online - Detail Start: Jun-2018 Instruction Type: Patient Education Indication: Non-smoker Patient Instructions Start: 02-Jul-2018 Instruction Type: Provider Instructions for Treatment Indication: Upper respiratory infection, acute How to access health information online Start: 22-Apr-2018 Instruction Type: Patient Education Indication: BMI 22.0-22.9, adult How to access health information online - Detail Start: Instruction Type: Patient Education Indication: BMI 22.0-22.9, adult Patient Instructions Start: 22-Apr-2018 Instruction Type: Provider Instructions for Treatment Indication: Cough How to access health information online Start: 20-Aug-2017 Instruction Type: Patient Education Indication: Non-smoker How to access health information online - Detail Start: Jul-2017 Instruction Type: Patient Education Indication: Non-smoker Patient Instructions Start: 20-Aug-2017 Instruction Type: Provider Instructions for Treatment Indication: Non-smoker How to access health information online Start: 17-Jul-2017 Instruction Type: Patient Education Indication: Non-smoker How to access health information online - Detail Start: Jun-2017 Instruction Type: Patient Education Indication: Non-smoker Patient Instructions Start: 17-Jul-2017 Instruction Type: Provider Instructions for Treatment Indication: Non-smoker Patient Instructions Start: 11-Jan-2015 Instruction Type: Provider Instructions for Treatment Indication: Back pain Patient Instructions Start: 14-Dec-2014 Instruction Type: Provider Instructions for Treatment Indication: Intervertebral disc protrusion Patient Instructions Start: 07-Apr-2014 Instruction Type: Provider Instructions for Treatment Indication: Sore throat Patient Instructions Start: 13-Feb-2014 Instruction Type: Provider Instructions for Treatment Indication: Well woman exam with routine gynecological exam Patient Instructions Start: 23-Jul-2013 Instruction Type: Provider Instructions for Treatment Indication: Low back pain potentially associated with radicu lopathy Patient Instructions Start: 22-Jul-2013 Instruction Type: Provider Instructions for Treatment Indication: Low back pain potentially associated with radicu lopathy Patient Instructions Start: 07-Jul-2013 Instruction Type: Provider Instructions for Treatment Indication: Weight gain Patient Instructions Start: 30-Jun-2013 Instruction Type: Provider Instructions for Treatment Indication: Abdominal pain, acute, right lower quadrant Patient Instructions Start: 03-Apr-2013 Instruction Type: Provider Instructions for Treatment Indication: Low back pain potentially associated with radicu lopathy Patient Instructions Start: 25-Nov-2012 Instruction Type: Provider Instructions for Treatment Indication: Depressive disorder Patient Instructions Start: 25-Oct-2012 Instruction Type: Provider Instructions for Treatment Indication: Depressive disorder Name Dates Details How to access health information online Start: 11-Aug-2019 Instruction Type: Patient Education Indication: Non-smoker How to access health information online - Detail Start: Jul-2019 Instruction Type: Patient Education Indication: Non-smoker Patient Instructions Start: 11-Aug-2019 Instruction Type: Provider Instructions for Treatment Indication: Non-smoker How to access health information online Start: 01-Aug-2019 Instruction Type: Patient Education Indication: Non-smoker Patient Instructions Start: 01-Aug-2019 Instruction Type: Provider Instructions for Treatment Indication: Non-smoker How to access health information online Start: 13-Jun-2019 Instruction Type: Patient Education Indication: Sore throat How to access health information online - Detail Start: May-2019 Instruction Type: Patient Education Indication: Sore throat Patient Instructions Start: 13-Jun-2019 Instruction Type: Provider Instructions for Treatment Indication: Sore throat How to access health information online Start: 01-Jan-2019 Instruction Type: Patient Education Indication: Non-smoker How to access health information online - Detail Start: Dec-2018 Instruction Type: Patient Education Indication: Non-smoker Patient Instructions Start: 01-Jan-2019 Instruction Type: Provider Instructions for Treatment Indication: Non-smoker How to access health information online Start: 02-Jul-2018 Instruction Type: Patient Education Indication: Non-smoker How to access health information online - Detail Start: Jun-2018 Instruction Type: Patient Education Indication: Non-smoker Patient Instructions Start: 02-Jul-2018 Instruction Type: Provider Instructions for Treatment Indication: Upper respiratory infection, acute How to access health information online Start: 22-Apr-2018 Instruction Type: Patient Education Indication: BMI 22.0-22.9, adult How to access health information online - Detail Start: Instruction Type: Patient Education Indication: BMI 22.0-22.9, adult Patient Instructions Start: 22-Apr-2018 Instruction Type: Provider Instructions for Treatment Indication: Cough How to access health information online Start: 20-Aug-2017 Instruction Type: Patient Education Indication: Non-smoker How to access health information online - Detail Start: Jul-2017 Instruction Type: Patient Education Indication: Non-smoker Patient Instructions Start: 20-Aug-2017 Instruction Type: Provider Instructions for Treatment Indication: Non-smoker How to access health information online Start: 17-Jul-2017 Instruction Type: Patient Education Indication: Non-smoker How to access health information online - Detail Start: Jun-2017 Instruction Type: Patient Education Indication: Non-smoker Patient Instructions Start: 17-Jul-2017 Instruction Type: Provider Instructions for Treatment Indication: Non-smoker Patient Instructions Start: 11-Jan-2015 Instruction Type: Provider Instructions for Treatment Indication: Back pain Patient Instructions Start: 14-Dec-2014 Instruction Type: Provider Instructions for Treatment Indication: Intervertebral disc protrusion Patient Instructions Start: 07-Apr-2014 Instruction Type: Provider Instructions for Treatment Indication: Sore throat Patient Instructions Start: 13-Feb-2014 Instruction Type: Provider Instructions for Treatment Indication: Well woman exam with routine gynecological exam Patient Instructions Start: 23-Jul-2013 Instruction Type: Provider Instructions for Treatment Indication: Low back pain potentially associated with radicu lopathy Patient Instructions Start: 22-Jul-2013 Instruction Type: Provider Instructions for Treatment Indication: Low back pain potentially associated with radicu lopathy Patient Instructions Start: 07-Jul-2013 Instruction Type: Provider Instructions for Treatment Indication: Weight gain Patient Instructions Start: 30-Jun-2013 Instruction Type: Provider Instructions for Treatment Indication: Abdominal pain, acute, right lower quadrant Patient Instructions Start: 03-Apr-2013 Instruction Type: Provider Instructions for Treatment Indication: Low back pain potentially associated with radicu lopathy Patient Instructions Start: 25-Nov-2012 Instruction Type: Provider Instructions for Treatment Indication: Depressive disorder Patient Instructions Start: 25-Oct-2012 Instruction Type: Provider Instructions for Treatment Indication: Depressive disorder Name Dates Details How to access health information online Start: 11-Aug-2019 Instruction Type: Patient Education Indication: Non-smoker How to access health information online - Detail Start: Jul-2019 Instruction Type: Patient Education Indication: Non-smoker Patient Instructions Start: 11-Aug-2019 Instruction Type: Provider Instructions for Treatment Indication: Non-smoker How to access health information online Start: 01-Aug-2019 Instruction Type: Patient Education Indication: Non-smoker Patient Instructions Start: 01-Aug-2019 Instruction Type: Provider Instructions for Treatment Indication: Non-smoker How to access health information online Start: 13-Jun-2019 Instruction Type: Patient Education Indication: Sore throat How to access health information online - Detail Start: May-2019 Instruction Type: Patient Education Indication: Sore throat Patient Instructions Start: 13-Jun-2019 Instruction Type: Provider Instructions for Treatment Indication: Sore throat How to access health information online Start: 01-Jan-2019 Instruction Type: Patient Education Indication: Non-smoker How to access health information online - Detail Start: Dec-2018 Instruction Type: Patient Education Indication: Non-smoker Patient Instructions Start: 01-Jan-2019 Instruction Type: Provider Instructions for Treatment Indication: Non-smoker How to access health information online Start: 02-Jul-2018 Instruction Type: Patient Education Indication: Non-smoker How to access health information online - Detail Start: Jun-2018 Instruction Type: Patient Education Indication: Non-smoker Patient Instructions Start: 02-Jul-2018 Instruction Type: Provider Instructions for Treatment Indication: Upper respiratory infection, acute How to access health information online Start: 22-Apr-2018 Instruction Type: Patient Education Indication: BMI 22.0-22.9, adult How to access health information online - Detail Start: Instruction Type: Patient Education Indication: BMI 22.0-22.9, adult Patient Instructions Start: 22-Apr-2018 Instruction Type: Provider Instructions for Treatment Indication: Cough How to access health information online Start: 20-Aug-2017 Instruction Type: Patient Education Indication: Non-smoker How to access health information online - Detail Start: Jul-2017 Instruction Type: Patient Education Indication: Non-smoker Patient Instructions Start: 20-Aug-2017 Instruction Type: Provider Instructions for Treatment Indication: Non-smoker How to access health information online Start: 17-Jul-2017 Instruction Type: Patient Education Indication: Non-smoker How to access health information online - Detail Start: Jun-2017 Instruction Type: Patient Education Indication: Non-smoker Patient Instructions Start: 17-Jul-2017 Instruction Type: Provider Instructions for Treatment Indication: Non-smoker Patient Instructions Start: 11-Jan-2015 Instruction Type: Provider Instructions for Treatment Indication: Back pain Patient Instructions Start: 14-Dec-2014 Instruction Type: Provider Instructions for Treatment Indication: Intervertebral disc protrusion Patient Instructions Start: 07-Apr-2014 Instruction Type: Provider Instructions for Treatment Indication: Sore throat Patient Instructions Start: 13-Feb-2014 Instruction Type: Provider Instructions for Treatment Indication: Well woman exam with routine gynecological exam Patient Instructions Start: 23-Jul-2013 Instruction Type: Provider Instructions for Treatment Indication: Low back pain potentially associated with radicu lopathy Patient Instructions Start: 22-Jul-2013 Instruction Type: Provider Instructions for Treatment Indication: Low back pain potentially associated with radicu lopathy Patient Instructions Start: 07-Jul-2013 Instruction Type: Provider Instructions for Treatment Indication: Weight gain Patient Instructions Start: 30-Jun-2013 Instruction Type: Provider Instructions for Treatment Indication: Abdominal pain, acute, right lower quadrant Patient Instructions Start: 03-Apr-2013 Instruction Type: Provider Instructions for Treatment Indication: Low back pain potentially associated with radicu lopathy Patient Instructions Start: 25-Nov-2012 Instruction Type: Provider Instructions for Treatment Indication: Depressive disorder Patient Instructions Start: 25-Oct-2012 Instruction Type: Provider Instructions for Treatment Indication: Depressive disorder Name Dates Details How to access health information online Start: 29-Apr-2020 Instruction Type: Patient Education Indication: BMI 24.0-24.9, adult How to access health information online - Detail Start: Instruction Type: Patient Education Indication: BMI 24.0-24.9, adult Patient Instructions Start: 29-Apr-2020 Instruction Type: Provider Instructions for Treatment Indication: BMI 24.0-24.9, adult How to access health information online Start: 02-Sep-2019 Instruction Type: Patient Education Indication: Non-smoker How to access health information online - Detail Start: Aug-2019 Instruction Type: Patient Education Indication: Non-smoker Patient Instructions Start: 02-Sep-2019 Instruction Type: Provider Instructions for Treatment Indication: Non-smoker How to access health information online Start: 11-Aug-2019 Instruction Type: Patient Education Indication: Non-smoker How to access health information online - Detail Start: Jul-2019 Instruction Type: Patient Education Indication: Non-smoker Patient Instructions Start: 11-Aug-2019 Instruction Type: Provider Instructions for Treatment Indication: Non-smoker How to access health information online Start: 01-Aug-2019 Instruction Type: Patient Education Indication: Non-smoker Patient Instructions Start: 01-Aug-2019 Instruction Type: Provider Instructions for Treatment Indication: Non-smoker How to access health information online Start: 13-Jun-2019 Instruction Type: Patient Education Indication: Sore throat How to access health information online - Detail Start: May-2019 Instruction Type: Patient Education Indication: Sore throat Patient Instructions Start: 13-Jun-2019 Instruction Type: Provider Instructions for Treatment Indication: Sore throat How to access health information online Start: 01-Jan-2019 Instruction Type: Patient Education Indication: Non-smoker How to access health information online - Detail Start: Dec-2018 Instruction Type: Patient Education Indication: Non-smoker Patient Instructions Start: 01-Jan-2019 Instruction Type: Provider Instructions for Treatment Indication: Non-smoker How to access health information online Start: 02-Jul-2018 Instruction Type: Patient Education Indication: Non-smoker How to access health information online - Detail Start: Jun-2018 Instruction Type: Patient Education Indication: Non-smoker Patient Instructions Start: 02-Jul-2018 Instruction Type: Provider Instructions for Treatment Indication: Upper respiratory infection, acute How to access health information online Start: 22-Apr-2018 Instruction Type: Patient Education Indication: BMI 22.0-22.9, adult How to access health information online - Detail Start: Instruction Type: Patient Education Indication: BMI 22.0-22.9, adult Patient Instructions Start: 22-Apr-2018 Instruction Type: Provider Instructions for Treatment Indication: Cough How to access health information online Start: 20-Aug-2017 Instruction Type: Patient Education Indication: Non-smoker How to access health information online - Detail Start: Jul-2017 Instruction Type: Patient Education Indication: Non-smoker Patient Instructions Start: 20-Aug-2017 Instruction Type: Provider Instructions for Treatment Indication: Non-smoker How to access health information online Start: 17-Jul-2017 Instruction Type: Patient Education Indication: Non-smoker How to access health information online - Detail Start: Jun-2017 Instruction Type: Patient Education Indication: Non-smoker Patient Instructions Start: 17-Jul-2017 Instruction Type: Provider Instructions for Treatment Indication: Non-smoker Patient Instructions Start: 11-Jan-2015 Instruction Type: Provider Instructions for Treatment Indication: Back pain Patient Instructions Start: 14-Dec-2014 Instruction Type: Provider Instructions for Treatment Indication: Intervertebral disc protrusion Patient Instructions Start: 07-Apr-2014 Instruction Type: Provider Instructions for Treatment Indication: Sore throat Patient Instructions Start: 13-Feb-2014 Instruction Type: Provider Instructions for Treatment Indication: Well woman exam with routine gynecological exam Patient Instructions Start: 23-Jul-2013 Instruction Type: Provider Instructions for Treatment Indication: Low back pain potentially associated with radicu lopathy Patient Instructions Start: 22-Jul-2013 Instruction Type: Provider Instructions for Treatment Indication: Low back pain potentially associated with radicu lopathy Patient Instructions Start: 07-Jul-2013 Instruction Type: Provider Instructions for Treatment Indication: Weight gain Patient Instructions Start: 30-Jun-2013 Instruction Type: Provider Instructions for Treatment Indication: Abdominal pain, acute, right lower quadrant Patient Instructions Start: 03-Apr-2013 Instruction Type: Provider Instructions for Treatment Indication: Low back pain potentially associated with radicu lopathy Patient Instructions Start: 25-Nov-2012 Instruction Type: Provider Instructions for Treatment Indication: Depressive disorder Patient Instructions Start: 25-Oct-2012 Instruction Type: Provider Instructions for Treatment Indication: Depressive disorder Name Dates Details How to access health information online Start: 29-Apr-2020 Instruction Type: Patient Education Indication: BMI 24.0-24.9, adult How to access health information online - Detail Start: Instruction Type: Patient Education Indication: BMI 24.0-24.9, adult Patient Instructions Start: 29-Apr-2020 Instruction Type: Provider Instructions for Treatment Indication: BMI 24.0-24.9, adult How to access health information online Start: 02-Sep-2019 Instruction Type: Patient Education Indication: Non-smoker How to access health information online - Detail Start: Aug-2019 Instruction Type: Patient Education Indication: Non-smoker Patient Instructions Start: 02-Sep-2019 Instruction Type: Provider Instructions for Treatment Indication: Non-smoker How to access health information online Start: 11-Aug-2019 Instruction Type: Patient Education Indication: Non-smoker How to access health information online - Detail Start: Jul-2019 Instruction Type: Patient Education Indication: Non-smoker Patient Instructions Start: 11-Aug-2019 Instruction Type: Provider Instructions for Treatment Indication: Non-smoker How to access health information online Start: 01-Aug-2019 Instruction Type: Patient Education Indication: Non-smoker Patient Instructions Start: 01-Aug-2019 Instruction Type: Provider Instructions for Treatment Indication: Non-smoker How to access health information online Start: 13-Jun-2019 Instruction Type: Patient Education Indication: Sore throat How to access health information online - Detail Start: May-2019 Instruction Type: Patient Education Indication: Sore throat Patient Instructions Start: 13-Jun-2019 Instruction Type: Provider Instructions for Treatment Indication: Sore throat How to access health information online Start: 01-Jan-2019 Instruction Type: Patient Education Indication: Non-smoker How to access health information online - Detail Start: Dec-2018 Instruction Type: Patient Education Indication: Non-smoker Patient Instructions Start: 01-Jan-2019 Instruction Type: Provider Instructions for Treatment Indication: Non-smoker How to access health information online Start: 02-Jul-2018 Instruction Type: Patient Education Indication: Non-smoker How to access health information online - Detail Start: Jun-2018 Instruction Type: Patient Education Indication: Non-smoker Patient Instructions Start: 02-Jul-2018 Instruction Type: Provider Instructions for Treatment Indication: Upper respiratory infection, acute How to access health information online Start: 22-Apr-2018 Instruction Type: Patient Education Indication: BMI 22.0-22.9, adult How to access health information online - Detail Start: Instruction Type: Patient Education Indication: BMI 22.0-22.9, adult Patient Instructions Start: 22-Apr-2018 Instruction Type: Provider Instructions for Treatment Indication: Cough How to access health information online Start: 20-Aug-2017 Instruction Type: Patient Education Indication: Non-smoker How to access health information online - Detail Start: Jul-2017 Instruction Type: Patient Education Indication: Non-smoker Patient Instructions Start: 20-Aug-2017 Instruction Type: Provider Instructions for Treatment Indication: Non-smoker How to access health information online Start: 17-Jul-2017 Instruction Type: Patient Education Indication: Non-smoker How to access health information online - Detail Start: Jun-2017 Instruction Type: Patient Education Indication: Non-smoker Patient Instructions Start: 17-Jul-2017 Instruction Type: Provider Instructions for Treatment Indication: Non-smoker Patient Instructions Start: 11-Jan-2015 Instruction Type: Provider Instructions for Treatment Indication: Back pain Patient Instructions Start: 14-Dec-2014 Instruction Type: Provider Instructions for Treatment Indication: Intervertebral disc protrusion Patient Instructions Start: 07-Apr-2014 Instruction Type: Provider Instructions for Treatment Indication: Sore throat Patient Instructions Start: 13-Feb-2014 Instruction Type: Provider Instructions for Treatment Indication: Well woman exam with routine gynecological exam Patient Instructions Start: 23-Jul-2013 Instruction Type: Provider Instructions for Treatment Indication: Low back pain potentially associated with radicu lopathy Patient Instructions Start: 22-Jul-2013 Instruction Type: Provider Instructions for Treatment Indication: Low back pain potentially associated with radicu lopathy Patient Instructions Start: 07-Jul-2013 Instruction Type: Provider Instructions for Treatment Indication: Weight gain Patient Instructions Start: 30-Jun-2013 Instruction Type: Provider Instructions for Treatment Indication: Abdominal pain, acute, right lower quadrant Patient Instructions Start: 03-Apr-2013 Instruction Type: Provider Instructions for Treatment Indication: Low back pain potentially associated with radicu lopathy Patient Instructions Start: 25-Nov-2012 Instruction Type: Provider Instructions for Treatment Indication: Depressive disorder Patient Instructions Start: 25-Oct-2012 Instruction Type: Provider Instructions for Treatment Indication: Depressive disorder Name Dates Details How to access health information online Start: 04-Jun-2020 Instruction Type: Patient Education Indication: Non-smoker How to access health information online - Detail Start: May-2020 Instruction Type: Patient Education Indication: Non-smoker Patient Instructions Start: 04-Jun-2020 Instruction Type: Provider Instructions for Treatment Indication: Non-smoker How to access health information online Start: 29-Apr-2020 Instruction Type: Patient Education Indication: BMI 24.0-24.9, adult How to access health information online - Detail Start: Instruction Type: Patient Education Indication: BMI 24.0-24.9, adult Patient Instructions Start: 29-Apr-2020 Instruction Type: Provider Instructions for Treatment Indication: BMI 24.0-24.9, adult How to access health information online Start: 02-Sep-2019 Instruction Type: Patient Education Indication: Non-smoker How to access health information online - Detail Start: Aug-2019 Instruction Type: Patient Education Indication: Non-smoker Patient Instructions Start: 02-Sep-2019 Instruction Type: Provider Instructions for Treatment Indication: Non-smoker How to access health information online Start: 11-Aug-2019 Instruction Type: Patient Education Indication: Non-smoker How to access health information online - Detail Start: Jul-2019 Instruction Type: Patient Education Indication: Non-smoker Patient Instructions Start: 11-Aug-2019 Instruction Type: Provider Instructions for Treatment Indication: Non-smoker How to access health information online Start: 01-Aug-2019 Instruction Type: Patient Education Indication: Non-smoker Patient Instructions Start: 01-Aug-2019 Instruction Type: Provider Instructions for Treatment Indication: Non-smoker How to access health information online Start: 13-Jun-2019 Instruction Type: Patient Education Indication: Sore throat How to access health information online - Detail Start: May-2019 Instruction Type: Patient Education Indication: Sore throat Patient Instructions Start: 13-Jun-2019 Instruction Type: Provider Instructions for Treatment Indication: Sore throat How to access health information online Start: 01-Jan-2019 Instruction Type: Patient Education Indication: Non-smoker How to access health information online - Detail Start: Dec-2018 Instruction Type: Patient Education Indication: Non-smoker Patient Instructions Start: 01-Jan-2019 Instruction Type: Provider Instructions for Treatment Indication: Non-smoker How to access health information online Start: 02-Jul-2018 Instruction Type: Patient Education Indication: Non-smoker How to access health information online - Detail Start: Jun-2018 Instruction Type: Patient Education Indication: Non-smoker Patient Instructions Start: 02-Jul-2018 Instruction Type: Provider Instructions for Treatment Indication: Upper respiratory infection, acute How to access health information online Start: 22-Apr-2018 Instruction Type: Patient Education Indication: BMI 22.0-22.9, adult How to access health information online - Detail Start: Instruction Type: Patient Education Indication: BMI 22.0-22.9, adult Patient Instructions Start: 22-Apr-2018 Instruction Type: Provider Instructions for Treatment Indication: Cough How to access health information online Start: 20-Aug-2017 Instruction Type: Patient Education Indication: Non-smoker How to access health information online - Detail Start: Jul-2017 Instruction Type: Patient Education Indication: Non-smoker Patient Instructions Start: 20-Aug-2017 Instruction Type: Provider Instructions for Treatment Indication: Non-smoker How to access health information online Start: 17-Jul-2017 Instruction Type: Patient Education Indication: Non-smoker How to access health information online - Detail Start: Jun-2017 Instruction Type: Patient Education Indication: Non-smoker Patient Instructions Start: 17-Jul-2017 Instruction Type: Provider Instructions for Treatment Indication: Non-smoker Patient Instructions Start: 11-Jan-2015 Instruction Type: Provider Instructions for Treatment Indication: Back pain Patient Instructions Start: 14-Dec-2014 Instruction Type: Provider Instructions for Treatment Indication: Intervertebral disc protrusion Patient Instructions Start: 07-Apr-2014 Instruction Type: Provider Instructions for Treatment Indication: Sore throat Patient Instructions Start: 13-Feb-2014 Instruction Type: Provider Instructions for Treatment Indication: Well woman exam with routine gynecological exam Patient Instructions Start: 23-Jul-2013 Instruction Type: Provider Instructions for Treatment Indication: Low back pain potentially associated with radicu lopathy Patient Instructions Start: 22-Jul-2013 Instruction Type: Provider Instructions for Treatment Indication: Low back pain potentially associated with radicu lopathy Patient Instructions Start: 07-Jul-2013 Instruction Type: Provider Instructions for Treatment Indication: Weight gain Patient Instructions Start: 30-Jun-2013 Instruction Type: Provider Instructions for Treatment Indication: Abdominal pain, acute, right lower quadrant Patient Instructions Start: 03-Apr-2013 Instruction Type: Provider Instructions for Treatment Indication: Low back pain potentially associated with radicu lopathy Patient Instructions Start: 25-Nov-2012 Instruction Type: Provider Instructions for Treatment Indication: Depressive disorder Patient Instructions Start: 25-Oct-2012 Instruction Type: Provider Instructions for Treatment Indication: Depressive disorder Name Dates Details How to access health information online Start: 11-Jun-2020 Instruction Type: Patient Education Indication: BMI 25.0-25.9,adult How to access health information online - Detail Start: May-2020 Instruction Type: Patient Education Indication: BMI 25.0-25.9,adult Patient Instructions Start: 11-Jun-2020 Instruction Type: Provider Instructions for Treatment Indication: BMI 25.0-25.9,adult How to access health information online Start: 04-Jun-2020 Instruction Type: Patient Education Indication: Non-smoker How to access health information online - Detail Start: May-2020 Instruction Type: Patient Education Indication: Non-smoker Patient Instructions Start: 04-Jun-2020 Instruction Type: Provider Instructions for Treatment Indication: Non-smoker How to access health information online Start: 29-Apr-2020 Instruction Type: Patient Education Indication: BMI 24.0-24.9, adult How to access health information online - Detail Start: Instruction Type: Patient Education Indication: BMI 24.0-24.9, adult Patient Instructions Start: 29-Apr-2020 Instruction Type: Provider Instructions for Treatment Indication: BMI 24.0-24.9, adult How to access health information online Start: 02-Sep-2019 Instruction Type: Patient Education Indication: Non-smoker How to access health information online - Detail Start: Aug-2019 Instruction Type: Patient Education Indication: Non-smoker Patient Instructions Start: 02-Sep-2019 Instruction Type: Provider Instructions for Treatment Indication: Non-smoker How to access health information online Start: 11-Aug-2019 Instruction Type: Patient Education Indication: Non-smoker How to access health information online - Detail Start: Jul-2019 Instruction Type: Patient Education Indication: Non-smoker Patient Instructions Start: 11-Aug-2019 Instruction Type: Provider Instructions for Treatment Indication: Non-smoker How to access health information online Start: 01-Aug-2019 Instruction Type: Patient Education Indication: Non-smoker Patient Instructions Start: 01-Aug-2019 Instruction Type: Provider Instructions for Treatment Indication: Non-smoker How to access health information online Start: 13-Jun-2019 Instruction Type: Patient Education Indication: Sore throat How to access health information online - Detail Start: May-2019 Instruction Type: Patient Education Indication: Sore throat Patient Instructions Start: 13-Jun-2019 Instruction Type: Provider Instructions for Treatment Indication: Sore throat How to access health information online Start: 01-Jan-2019 Instruction Type: Patient Education Indication: Non-smoker How to access health information online - Detail Start: Dec-2018 Instruction Type: Patient Education Indication: Non-smoker Patient Instructions Start: 01-Jan-2019 Instruction Type: Provider Instructions for Treatment Indication: Non-smoker How to access health information online Start: 02-Jul-2018 Instruction Type: Patient Education Indication: Non-smoker How to access health information online - Detail Start: Jun-2018 Instruction Type: Patient Education Indication: Non-smoker Patient Instructions Start: 02-Jul-2018 Instruction Type: Provider Instructions for Treatment Indication: Upper respiratory infection, acute How to access health information online Start: 22-Apr-2018 Instruction Type: Patient Education Indication: BMI 22.0-22.9, adult How to access health information online - Detail Start: Instruction Type: Patient Education Indication: BMI 22.0-22.9, adult Patient Instructions Start: 22-Apr-2018 Instruction Type: Provider Instructions for Treatment Indication: Cough How to access health information online Start: 20-Aug-2017 Instruction Type: Patient Education Indication: Non-smoker How to access health information online - Detail Start: Jul-2017 Instruction Type: Patient Education Indication: Non-smoker Patient Instructions Start: 20-Aug-2017 Instruction Type: Provider Instructions for Treatment Indication: Non-smoker How to access health information online Start: 17-Jul-2017 Instruction Type: Patient Education Indication: Non-smoker How to access health information online - Detail Start: Jun-2017 Instruction Type: Patient Education Indication: Non-smoker Patient Instructions Start: 17-Jul-2017 Instruction Type: Provider Instructions for Treatment Indication: Non-smoker Patient Instructions Start: 11-Jan-2015 Instruction Type: Provider Instructions for Treatment Indication: Back pain Patient Instructions Start: 14-Dec-2014 Instruction Type: Provider Instructions for Treatment Indication: Intervertebral disc protrusion Patient Instructions Start: 07-Apr-2014 Instruction Type: Provider Instructions for Treatment Indication: Sore throat Patient Instructions Start: 13-Feb-2014 Instruction Type: Provider Instructions for Treatment Indication: Well woman exam with routine gynecological exam Patient Instructions Start: 23-Jul-2013 Instruction Type: Provider Instructions for Treatment Indication: Low back pain potentially associated with radicu lopathy Patient Instructions Start: 22-Jul-2013 Instruction Type: Provider Instructions for Treatment Indication: Low back pain potentially associated with radicu lopathy Patient Instructions Start: 07-Jul-2013 Instruction Type: Provider Instructions for Treatment Indication: Weight gain Patient Instructions Start: 30-Jun-2013 Instruction Type: Provider Instructions for Treatment Indication: Abdominal pain, acute, right lower quadrant Patient Instructions Start: 03-Apr-2013 Instruction Type: Provider Instructions for Treatment Indication: Low back pain potentially associated with radicu lopathy Patient Instructions Start: 25-Nov-2012 Instruction Type: Provider Instructions for Treatment Indication: Depressive disorder Patient Instructions Start: 25-Oct-2012 Instruction Type: Provider Instructions for Treatment Indication: Depressive disorder Name Dates Details How to access health information online Start: 30-Jun-2020 Instruction Type: Patient Education Indication: Non-smoker How to access health information online - Detail Start: Instruction Type: Patient Education Indication: Non-smoker Patient Instructions Start: 30-Jun-2020 Instruction Type: Provider Instructions for Treatment Indication: Non-smoker How to access health information online Start: 11-Jun-2020 Instruction Type: Patient Education Indication: BMI 25.0-25.9,adult How to access health information online - Detail Start: May-2020 Instruction Type: Patient Education Indication: BMI 25.0-25.9,adult Patient Instructions Start: 11-Jun-2020 Instruction Type: Provider Instructions for Treatment Indication: BMI 25.0-25.9,adult How to access health information online Start: 04-Jun-2020 Instruction Type: Patient Education Indication: Non-smoker How to access health information online - Detail Start: May-2020 Instruction Type: Patient Education Indication: Non-smoker Patient Instructions Start: 04-Jun-2020 Instruction Type: Provider Instructions for Treatment Indication: Non-smoker How to access health information online Start: 29-Apr-2020 Instruction Type: Patient Education Indication: BMI 24.0-24.9, adult How to access health information online - Detail Start: Instruction Type: Patient Education Indication: BMI 24.0-24.9, adult Patient Instructions Start: 29-Apr-2020 Instruction Type: Provider Instructions for Treatment Indication: BMI 24.0-24.9, adult How to access health information online Start: 02-Sep-2019 Instruction Type: Patient Education Indication: Non-smoker How to access health information online - Detail Start: Aug-2019 Instruction Type: Patient Education Indication: Non-smoker Patient Instructions Start: 02-Sep-2019 Instruction Type: Provider Instructions for Treatment Indication: Non-smoker How to access health information online Start: 11-Aug-2019 Instruction Type: Patient Education Indication: Non-smoker How to access health information online - Detail Start: Jul-2019 Instruction Type: Patient Education Indication: Non-smoker Patient Instructions Start: 11-Aug-2019 Instruction Type: Provider Instructions for Treatment Indication: Non-smoker How to access health information online Start: 01-Aug-2019 Instruction Type: Patient Education Indication: Non-smoker Patient Instructions Start: 01-Aug-2019 Instruction Type: Provider Instructions for Treatment Indication: Non-smoker How to access health information online Start: 13-Jun-2019 Instruction Type: Patient Education Indication: Sore throat How to access health information online - Detail Start: May-2019 Instruction Type: Patient Education Indication: Sore throat Patient Instructions Start: 13-Jun-2019 Instruction Type: Provider Instructions for Treatment Indication: Sore throat How to access health information online Start: 01-Jan-2019 Instruction Type: Patient Education Indication: Non-smoker How to access health information online - Detail Start: Dec-2018 Instruction Type: Patient Education Indication: Non-smoker Patient Instructions Start: 01-Jan-2019 Instruction Type: Provider Instructions for Treatment Indication: Non-smoker How to access health information online Start: 02-Jul-2018 Instruction Type: Patient Education Indication: Non-smoker How to access health information online - Detail Start: Jun-2018 Instruction Type: Patient Education Indication: Non-smoker Patient Instructions Start: 02-Jul-2018 Instruction Type: Provider Instructions for Treatment Indication: Upper respiratory infection, acute How to access health information online Start: 22-Apr-2018 Instruction Type: Patient Education Indication: BMI 22.0-22.9, adult How to access health information online - Detail Start: Instruction Type: Patient Education Indication: BMI 22.0-22.9, adult Patient Instructions Start: 22-Apr-2018 Instruction Type: Provider Instructions for Treatment Indication: Cough How to access health information online Start: 20-Aug-2017 Instruction Type: Patient Education Indication: Non-smoker How to access health information online - Detail Start: Jul-2017 Instruction Type: Patient Education Indication: Non-smoker Patient Instructions Start: 20-Aug-2017 Instruction Type: Provider Instructions for Treatment Indication: Non-smoker How to access health information online Start: 17-Jul-2017 Instruction Type: Patient Education Indication: Non-smoker How to access health information online - Detail Start: Jun-2017 Instruction Type: Patient Education Indication: Non-smoker Patient Instructions Start: 17-Jul-2017 Instruction Type: Provider Instructions for Treatment Indication: Non-smoker Patient Instructions Start: 11-Jan-2015 Instruction Type: Provider Instructions for Treatment Indication: Back pain Patient Instructions Start: 14-Dec-2014 Instruction Type: Provider Instructions for Treatment Indication: Intervertebral disc protrusion Patient Instructions Start: 07-Apr-2014 Instruction Type: Provider Instructions for Treatment Indication: Sore throat Patient Instructions Start: 13-Feb-2014 Instruction Type: Provider Instructions for Treatment Indication: Well woman exam with routine gynecological exam Patient Instructions Start: 23-Jul-2013 Instruction Type: Provider Instructions for Treatment Indication: Low back pain potentially associated with radicu lopathy Patient Instructions Start: 22-Jul-2013 Instruction Type: Provider Instructions for Treatment Indication: Low back pain potentially associated with radicu lopathy Patient Instructions Start: 07-Jul-2013 Instruction Type: Provider Instructions for Treatment Indication: Weight gain Patient Instructions Start: 30-Jun-2013 Instruction Type: Provider Instructions for Treatment Indication: Abdominal pain, acute, right lower quadrant Patient Instructions Start: 03-Apr-2013 Instruction Type: Provider Instructions for Treatment Indication: Low back pain potentially associated with radicu lopathy Patient Instructions Start: 25-Nov-2012 Instruction Type: Provider Instructions for Treatment Indication: Depressive disorder Patient Instructions Start: 25-Oct-2012 Instruction Type: Provider Instructions for Treatment Indication: Depressive disorder Advance Directives Name Dates Details Immunization Registry [place] - Effective on Effective: 26-S ep-2017 07/17/2017. Expiration date unspecified Name Dates Details Immunization Registry [place] - Effective on Effective: -S ep-201607/17/2017. Expiration date unspecified Name Dates Details Immunization Registry [place] - Effective on Effective: -S ep-201607/17/2017. Expiration date unspecified Name Dates Details Immunization Registry [place] - Effective on Effective: 26-S ep-2017 07/17/2017. Expiration date unspecified Name Dates Details Immunization Registry [place] - Effective on Effective: 26-S ep-2017 07/17/2017. Expiration date unspecified Name Dates Details Immunization Registry [place] - Effective on Effective: 26-S ep-2017 07/17/2017. Expiration date unspecified Name Dates Details Immunization Registry [place] - Effective on Effective: 26-S ep-2017 07/17/2017. Expiration date unspecified Name Dates Details Immunization Registry [place] - Effective on Effective: 26-S ep-2017 07/17/2017. Expiration date unspecified Name Dates Details Immunization Registry [place] - Effective on Effective: -S ep-2017 07/17/2017. Expiration date unspecified Name Dates Details Immunization Registry [place] - Effective on Effective: 26-S ep-2017 07/17/2017. Expiration date unspecified Name Dates Details Immunization Registry [place] - Effective on Effective: -S ep-2017 07/17/2017. Expiration date unspecified Name Dates Details Immunization Registry [place] - Effective on Effective: 26-S ep-2017 07/17/2017. Expiration date unspecified Summary Purpose Family History No Family History Records Found Additional Source Comments FOR RECORDS PERTAINING TO PATIENTS WHO ARE OR HAVE BEEN ENROLLED IN A CHEMICAL DEPENDENCY/SUBSTANCE ABUSE PROGRAM, SOME INFORMATION MAY BE OMITTED. This clinical summary was aggregated from multiple sources. Caution should be exercised in using it in the provision of clinical care. This summary normalizes information from multiple sources, and as a consequence, information in this document may materially changethe coding, format and clinical context of patient data. In addition, data may be omittedin some cases. CLINICAL DECISIONS SHOULD BE BASED ON THE PRIMARY CLINICAL RECORDS. [facility] provides no warranty or guarantee of the accuracy or completeness of information in this document. UNRECOGNIZED CONTENT PROVIDED BELOW FOR UNRECOGNIZED SECTION INFORMATION SOURCE DATE CREATED AUTHOR AUTHOR'S DAMASO Stiles 01/02/2019 [employer]
--- OUTSIDE RECORDS SUMMARY | 2020-08-03 16:17 | XMS RPT_ITS | CCD ---
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 [facility] Internal Respiratory culture [facility] Medicine (42629) (Unsp spec) Comment: PATIENT NOT FASTINGPERFORMED BY: CB [facility] Fnndco7326 [address] RoadDublin [place] [id number] Information: SRC:TH Bacteria identified RRF Normal 07-02-2018 Comprehensive Internal Respiratory culture Nom ([facility] Medicine (20502) spec) Comment: Routine respiratory farzaneh PATIENT NOT FASTINGPERFORMED BY: CB [facility] Hqland6408 [address] RoadDublin [place] [id number] Information: SRC:TH rapid strep test, office (60468) Ordered By: Sondra Patterson on 2018-07-02 S. pyogenes Ag IA Ql Negative Normal 8 Comprehensive Internal ([facility] spec) Medicine (57280) lipid panel (53744) Ordered By: Change Management Facilitator on 2017-08-20 Cholesterol in HDL mass 64 mg/dL Normal 2016 Comprehensive Internal conc Medicine ( 70585) Comment: PATIENT WAS FASTINGPERFORMED BY: CB [facility] Nmrspc0514 [address] RoadDublin [place] [id number] Cholesterol in LDL mass 107 0-99 mg/dL Abnormal 2016 Comprehensive Internal conc Medicine ( 56440) Comment: PATIENT WAS FASTINGPERFORMED BY: JONNY [facility] Jfzmas8200 [address] RoadDublin [place] [id number] Cholesterol in 1.7 0.0-3.2 {ratio_units} Normal 08-20-2017 Comprehensive LDL/Cholesterol in HDL Internal Medicine mass ratio (26963) Comment: LDL/HDL Ratio Men Women 1/2 Avg.Risk 1.0 1.5 Avg.Risk 3.6 3.2 2X Avg.Risk 6.2 5.0 3X Avg.Risk 8.0 6.1 PATIENT WAS FASTINGPERFORMED BY: CB [facility] Qokhib1861 [address] RoadDublin [place] [id number] Cholesterol in VLDL mass 20 5-40 mg/dL Normal 08-20 Comprehensive Internal conc Medicine ( 86678) Comment: PATIENT WAS FASTINGPERFORMED BY: CB [facility] Tsypnn9236 [address] RoadDublin [place] [id number] Cholesterol mass conc 191 100-199 mg/dL Normal 08-20-20 17 Comprehensive Internal Medicine ( 01778) Comment: PATIENT WAS FASTINGPERFORMED BY: CB [facility] Hjubwl0113 [address] RoadAtrium Health Providencein [place] [id number] Triglyceride mass conc 100 0-149 mg/dL Normal 017 Comprehensive Internal Medicine ( 34857) Comment: PATIENT WAS FASTINGPERFORMED BY: CB [facility] Xdcmsu4250 [address] [facility] [place] [id number] glucose (69741) Orde red By: Change Management Facilitator on 2017-08-20 Glucose mass conc 90 65-99 mg/dL Normal 08-20-2017 C omprehensive Internal Medicine (93714) Comment: PATIENT WAS FASTINGPERFORMED BY: CB [facility] Mphmny6150 [address] RoadDublin [place] [id number] hpv automatic (25703) Ordered By: Change Management Facilitator on 2017-07-17 HPV Negative Normal 07-17-2017 Comprehen sive 16+18+31+33+35+39+45+51+52+56+58+59+68 Internal DNA Probe+sig amp Ql (Cvx) Medicine (94917) Comment: This high-risk HPV test dete cts thirteen high-risk types(16/18/31/33/35/39/45/5 1/52/56/58/59/68) without differentiation. . Source.............Cervix;En docervixNo. of containers..01 ThinPrep VialPERFORMED BY: [employer] [place] Fashion.meAshley Regional Medical Center [id number] BY: =G [employer]120 [facility] CentermenuvoxrBabooAshley Regional Medical Center [id number] Information: [id number] Microscopic observation Other . Normal 07-17-2017 Comprehensive Internal Medicine stain Nom (Unsp spec) (21015) Comment: Source.............Cervix;En docervixNo. of containers..01 ThinPrep VialPERFORMED BY: [employer]120 [place] Radio NEXTrBabooAshley Regional Medical Center [id number] BY: =G [employer]120 [facility] Diabetes CentermenuvoxrBabooAshley Regional Medical Center [id number] Information: [id number] Pathology report final [facility] Normal 017 Comprehensive Internal diagnosis [facility] Medicine (16134) Comment: NEGATIVE FOR INTRAEPITHELIAL LESION AND MALIGNANCY.Satisfactory for evaluation. Endocervical and /or squamous metaplasticcells (endocervical component) are present.Z11.5 Radha Tapia Whipper Beater (ASCP) Source.............Cervix;En docervixNo. of containers..01 ThinPrep VialPERFORMED BY: WB [facility] Mjtmonmppa606 PhotofyrBabooshore memorial hospital [place] [id number] BY: =G LabCollabNet120 Aceva Technologieszamenuvoxrleston [place] [id number] Information: [id number] PAPSMR Normal 07-17-2017 [facility] (59039) Comment: The Pap smear is a screening [...] docervixNo. of containers..01 ThinPrep VialPERFORMED BY: WB Executive ChannelrBabooshore memorial hospital [place] [id number] BY: =G LabTelormedixrp Uatczbxihx369 [place] VAIREX internationalzamenuvoxrleston [place] [id number] Information: [id number] thin prep pap (37898) (no std testing) Ordered By: Change Management Facilitator on 2016-07-05 Normal 07-05-2016 [facility] (23229) Comment: Source.............Cervix;En docervixNo. of containers..01 CYTYC Thin Prep VialPATIENT NOT FASTINGPERFO RMED BY: =G [facility] Kaovrnpxmd775 [facility] [id number] BY: Over [address] [id number] BY: [employer] Hgpxabfinw[address] [id number] Information: [id number] igp, rfx aptima hpv ascu Ordered By: Change Management Facilitator on 2016-07-05 Diagnosis ICD code SPRCS Normal 07-05-2016 Comprehensive Internal [Identifier] Medicin hola (04787) Comment: R87.610The Pap smear is a sc [...] VialPATIENT NOT FASTINGPERFO RMED BY: =G [facility] Sjes[address]ts[address] [place] [address] [id number] BY: ZingYL [facility] [address] [id number] BY: [employer] [place] [address] [id number] Microscopic observation Other . Normal 07-05-2016 Comprehensive Internal Medicine stain Nom (Unsp spec) (76876) Comment: Source.............Cervix;En docervixNo. of containers..01 CYTYC Thin Prep VialPATIENT NOT FASTINGPERFO RMED BY: =G [facility] Bhsfsmboaf[address] [id number] BY: Over [address] [id number] BY: [employer] Radio NEXTrBabooshore memorial hospital W [id number] Pathology report final SPRCS Abnormal 016 Comprehensive Internal diagnosis [facility] Medicine (74405) Comment: EPITHELIAL CELL ABNORMALITY. ATYPICAL SQUAMOUS CELLS OF UNDETERMINED SIGNIFICANCE.Satisfactory fo r evaluation. No endocervical component is identified.Z01.419Bruce Wade Land, Whipper Beater (ASCP)Barb Hoffman MD, Pathologist Source.............Cervix;En docervixNo. of containers..01 CYTYC Thin Prep VialPATIENT NOT FASTINGPERFO RMED BY: =G [facility] Tnhepkwzhz178 [place] VAIREX internationalzamenuvoxrlesshore memorial hospital W [id number] BY: Over [address]rp [address] [id number] BY: WB [employer] [place] Radio NEXTrBabooshore memorial hospital W [id number] hpv aptima Ordered B y: Change Management Facilitator on 2016-07-05 HPV Negative Normal 07-05-2016 Comprehen sive 16+18+31+33+35+39+45+51+52+56+58+59+66+68 Internal DNA Probe+sig amp Ql (Cvx) Medicine (23681) Comment: This test detects fourteen h igh-risk HPV types (16/18/31/33/35/39/45/51/52/ 56/58/59/66/68) without differentiation. Source.............Cervix;En docervixNo. of containers..01 CYTYC Thin Prep VialPATIENT NOT FASTINGPERFO RMED BY: =G [facility] Aaibaqkqnn640 [place] Radio NEXTrlesshore memorial hospital W [id number] BY: ZingYL Frest Marketingrp Iueherhergmy[address] [place] [address] [id number] BY: WB [employer] [place] VAIREX internationalzamenuvoxrBabooshore memorial hospital W [id number] hpv automatic (23505) Ordered By: Change Management Facilitator on 2015-02-19 HPV Negative Normal 02-19-2015 Comprehen sive 16+18+31+33+35+39+45+51+52+56+58+59+68 Internal DNA Probe+sig amp Ql (Cvx) Medicine (17265) Comment: This high-risk HPV test dete cts thirteen high-risk types(16/18/31/33/35/39/45/5 1/52/56/58/59/68) without differentiation. . Source.............Cervical; EndocervicalLMP / Prev Treat...CMW=277558Tz. of containers..01 CYTYC Thin Pr ep VialPATIENT NOT FASTINGPERFORMED BY: WB [facility] Fvykyqucrd571 [place] PlazaCharleston [place] [id number] BY: =G [facility] Fnnoyxjpwe527 [place] PlazaCharleston [place] [id number] Information: [id number] Microscopic observation Other . Normal 02-19-2015 Comprehensive Internal Medicine stain Nom (Unsp spec) (47108) Comment: Source.............Cervical; EndocervicalLMP / Prev Treat...VDD=383768Kr. of containers..01 CYTYC Thin Pr ep VialPATIENT NOT FASTINGPERFORMED BY: WB [facility] Ltohkqyufa298 [place] PlazaCharleston [place] [id number] BY: =G [facility] Gqizrgaraq312 [place] PlazaCharleston [place] [id number] Information: [id number] Pathology report final [facility] Normal 015 Comprehensive Internal diagnosis Narrative Medicine (18126) Comment: NEGATIVE FOR INTRAEPITHELIAL LESION AND MALIGNANCY.Satisfactory for evaluation. Endocervical and /or squamous metaplasticcells (endocervical component) are present.V73.8 1 ; Special screening examination, human papillomavirus [HPV]Sujey Shetty Whipper Beater (ASCP) Source.............Cervical; EndocervicalLMP / Prev Treat...UPK=616261Zc. of containers..01 CYTYC Thin Pr ep VialPATIENT NOT FASTINGPERFORMED BY: WB [facility] Irzsooihnv539 [place] [id number] BY: =G [facility] Vbbozbbhxv[address] [place] [id number] Information: [id number] PAPSMR Normal 02-19-2015 [facility] Internal Medicine (83710) Comment: The Pap smear is a screening [...] image guided system. Source.............Cervical; EndocervicalLMP / Prev Treat...NXP=728744Qd. of containers..01 CYTYC Thin Pr ep VialPATIENT NOT FASTINGPERFORMED BY: WB [facility] Liesfhpnqx148 [place] [facility] W [id number] BY: =G [facility] Gzxjwduzsg738 [place] [id number] Information: [id number] rapid strep test, office (42772) Ordered By: Janet Power on 2014-04-07 S. pyogenes Ag IA Ql Negative Normal 4 Comprehensive Internal (Unsp spec) Medicine (14504) matt culture-other (36394) Ordered By: Change Management Facilitator on 2014-04-07 Bacteria identified Final report Normal 014 Comprehensive Internal Respiratory culture Nom Medicine (51291) (Unsp spec) Comment: PATIENT NOT FASTINGPERFORMED BY: CB [facility] Uvxtvq5359 [facility] [id number] Information: SRC:THRT [id number] Bacteria identified RRF Normal 04-07-2014 Comprehensive Internal Respiratory culture Nom ([facility] Medicine (39917) spec) Comment: Routine respiratory farzaneh PATIENT NOT FASTINGPERFORMED BY: CB [facility] Ekysmr9451 [facility] [id number] Information: SRC:ANDREW [id number] hpv automatic (49439) Ordered By: Change Management Facilitator on 2014-02-16 HPV Negative Normal 02-16-2014 Comprehen sive 16+18+31+33+35+39+45+51+52+56+58+59+68 Internal DNA Probe+sig amp Ql (Cvx) Medicine (63754) Comment: This high-risk HPV test dete cts thirteen high-risk types(16/18/31/33/35/39/45/5 1/52/56/58/59/68) without differentiation. . Source.............Cervical; EndocervicalLMP / Prev Treat...FGF=007576Mr. of containers..01 CYTYC Thin Pr ep VialPATIENT NOT FASTINGPERFORMED BY: WB [facility] Qgpedfqmha907 [place] Plazamenuvoxrl[place] [id number] BY: =G [facility] Jcplmiqowu098 [place] PlazaCharl[place] [id number] Information: Skyla [id number] Microscopic observation Other . Normal 02-16-2014 Comprehensive Internal Medicine stain Nom (Unsp spec) (16115) Comment: Source.............Cervical; EndocervicalLMP / Prev Treat...DUE=197833Qy. of containers..01 CYTYC Thin Pr ep VialPATIENT NOT FASTINGPERFORMED BY: WB [facility] Kdzafojlxl680 [place] Plazamenuvoxrl[place] [id number] BY: =G [facility] Ylympxiizw722 [place] PlazaCharl[place] [id number] Information: Skyla [id number] Pathology report final [facility] Normal 014 Comprehensive Internal diagnosis Narrative Medicine (99821) Comment: NEGATIVE FOR INTRAEPITHELIAL LESION AND MALIGNANCY.CELLULAR CHANGES ASSOCIATED WITH INFLAMMATION ARE PRESENT.THIS SPECIMEN WAS RESCREENED PART OF OUR KINDERGARTEN PREP TEACHER PROGRAM.Satisfactory for evaluation. Endocervical and/or squamous metaplasticcells (endocervical component) are present.V72.31 ; Routine stone trimmer ecological examinationHeather Abdalla, Whipper Beater (ASCP)Marie Arevalo, Supervisory Whipper Beater (ASCP) Source.............Cervical; EndocervicalLMP / Prev Treat...HGC=177314Kd. of containers..01 CYTYC Thin Pr ep VialPATIENT NOT FASTINGPERFORMED BY: WB [facility] Xyiqmzveyy734 [place] [id number] BY: =G [facility] Gqtrbqzdzv160 [place] [id number] Information: Skyla [id number] PAPSMR Normal 02-16-2014 [facility] Internal Medicine (47951) Comment: The Pap smear is a screening [...] image guided system. Source.............Cervical; EndocervicalLMP / Prev Treat...DVU=371792Wx. of containers..01 CYTYC Thin Pr ep VialPATIENT NOT FASTINGPERFORMED BY: WB [facility] Kvbkysmafg852 [place] [id number] BY: =G [facility] Eaktuvinif[address] [place] [id number] Information: Skyla [id number] urine matt culture (ruben col count) (8708 6) Ordered By: Change Management Facilitator on 2013 Bacteria identified Cx Nom MUG Normal Comprehensive Internal Medicine (U) (14666) Comment: Mixed urogenital flora1,000 Colonies/mL PATIENT NOT FASTINGPERFORMED BY: CB [facility] Gwdtdi2266 [address]Dublin [place] [id number] Information: SRC:UR [id number] Bacteria identified Cx Final report Normal Comprehensive Internal Nom (U) Medicine ( 60807) Comment: PATIENT NOT FASTINGPERFORMED BY: JONNY [facility] Cvnwou5474 [facility]well[facility] [id number] Information: SRC:PATEL [id number] urinalysis, office (76656) on 2013-07-23 Bilirubin Ql (U) Small Normal 07-23-2013 Co mprehensive Internal Medicine ( 76545) Glucose Test strip Negative Normal 07-23-2013 Comprehensive Internal mass conc (U) Medici ne (18325) Hemoglobin Ql (U) Non Hemolyzed Normal 07-23-20 13 Comprehensive Internal Moderate Medicine ( 77810) Ketones Ql (U) Moderate Normal 07-23-2013 [facility] Internal Medicine ( 25346) Comment: 40mg/dL Leukocyte esterase Test Negative Normal 2012 Comprehensive Internal strip Ql (U) Medicin e (39834) Nitrite Ql (U) Negative Normal 07-23-2013 [facility] Internal Medicine ( 30745) pH (U) 6.0 1 Normal 07-23-2013 [facility] Internal Medicine ( 45228) Comment: 5.5 Protein Ql (U) Negative Normal 07-23-2013 Comp [facility] Internal Medicine ( 33638) Specific gravity Relative 1.025 1 Normal Comprehensive Internal Density (U) Medicine (82563) Comment: >=1.030 Urobilinogen mass/time (24H Normal Normal Comprehensive Internal U) Medicine ( 84540) pelvic (non ) Ordered By: Change Management Facilitator on 2013-07-04 See Note Normal 07-04-2013 [facility] Internal Medicine (94627) Comment: STUDY: ULTRASOUND OF THE FEM DAVID PELVIS - COMPLETE REASON FOR EXAM: Female, 27 years old. LMP: May. Rightlower quadrant pain. TECHNIQUE: Transabdominal TECHNICAL LUDIN LITY: Adequate. COMPARISON: None. FINDINGS:The uterus is anteverted and is in a midline position . The uterusmeasures8.5 cm x 5.2 cm x 3.0 cm. Normal uterine cervix. The e dvlqjnpxahmpiiekub91 mm in thickness, and is hyperechoic. There [...] Signed:Melissa PantojaJuly 04, 2013 at 9:45:41 AM [phone] y Signed GP/GP If you are the referring physician and would like to consult with theradiologist who provided this interpretation, please contmack Benton M.D. at [phone]. If this radiologist is unavaila [facility], youwill be directed to another radiologist to [...] 07/04/13946 by ITS [employer] ign by Rae CORTEZ,Allen on 07/04/13947 Sign by: _ Allen Mcbride MD urine matt culture-ruben col count (75000) Ordered By: Change Management Facilitator on 2013-06-30 Bacteria identified Cx Final report Normal Comprehensive Internal Nom (U) Medicine ( 01904) Comment: PATIENT NOT FASTINGPERFORMED BY: [employer] [facility] Wjxvsd9940 BioNano GenomicsFormerly [facility], [facility] [id number] Information: SRC:UR P62785 Bacteria identified Cx Nom MUG Normal [facility] Internal Medicine (U) (03102) Comment: Mixed urogenital flora10,000 -25,000 colony forming units per mL PATIENT NOT FASTINGPERFORMED BY: CB [facility] Ymrmes5[address] [facility] [id number] Information: SRC:UR I04094 urinalysis, office (97458) Ordered By: Janet Power on 2013-06-30 Bilirubin Ql (U) Negative Normal 06-30-2013 Co mprehensive Internal Medicine ( 29881) Glucose Test strip Negative Normal 06-30-2013 Comprehensive Internal mass conc (U) Medici ne (15154) Hemoglobin Ql (U) Non Hemolyzed Trace Normal Comprehensive Internal Medicine ( 12649) Leukocyte esterase Negative Normal 06-30-2013 Comprehensive Internal Test strip Ql (U) Me dicine (04958) Nitrite Ql (U) Negative Normal 06-30-2013 Comp rehensive Internal Medicine ( 82949) pH (U) 5.0 1 Normal 06-30-2013 Comprehen sive Internal Medicine ( 24362) Protein Ql (U) Negative Normal 06-30-2013 Comp rehensive Internal Medicine ( 03721) Specific gravity 1.025 1 Normal 06-30-2013 Co mprehensive Internal Relative Density (U) Medicine (98994) Urobilinogen mass/time Normal Normal 013 Comprehensive Internal (24H U) Medicine ( 51670) tsh Ordered By: Syst em Form Builder on 2013-06-30 Thyrotropin Qn 1.17 0.358-3.74 {uIU/mL} Normal 06-30-2013 [facility] Internal Medicine ( 32671) t4f Ordered By: Syst em Form Builder on 2013-06-30 1.14 0.76-1.46 ng/dL Normal 06-30-2013 [facility] Internal Medicine (09023) sed Ordered By: Syst em Form Builder on 2013-06-30 4 0-20 mm/h Normal 06-30-2013 [facility] Internal Medicine (87784) ft3 Ordered By: Syst em Form Builder on 2013-06-30 2.9 2.18-3.98 pg/mL Normal 06-30-2013 [facility] Internal Medicine (29795) crp Ordered By: Syst em Form Builder on 2013-06-30 CRP mass conc < 2.90 0.0-3.0 mg/L Normal 06-30-2013 [facility] Internal Medicine (80130) Comment: C-Reactive Protein (CRP) pro megha useful information for thediagnosis, therapy and monitoring of in flammatory processesand associated diseases. For the evaluation of Relative R iskfor Cardiovascular Disease, a High Sensitivity CRP (HSCRP)shoul d be ordered. cmp Ordered By: Syst em Form Builder on 2013-06-30 Albumin mass conc 4.5 3.4-5.0 g/dL Normal 06-30-2013 [facility]mpket[facility] centerensive Internal Medicine ( 51359) ALT enzyme act/vol 23 12-78 U/L Normal 06-30-2013 [facility] Internal Medicine ( 03518) AST enzyme act/vol 17 15-37 U/L Normal 06-30-2013 [facility] Internal Medicine ( 07744) Calcium mass conc 9.1 8.5-10.1 mg/dL Normal 06-30-2013 [facility] Internal Medicine ( 62661) Chloride molar conc 104 98-107 mmol/L Normal 06-30-2013 [facility] Internal Medicine ( 03735) CO2 molar conc 29.0 21.0-32.0 mmol/L Normal 06-30-2013 Comp [facility] Internal Medicine ( 30646) Creatinine mass conc 0.6 0.6-1.0 mg/dL Normal 3 [facility] Internal Medicine ( 66345) GFR/1.73 sq M 128 mL/min Normal 06-30-2013 Compr ehensive Internal predicted among [facility] (43145) non-blacks MDRD vol rate/area (S/P/Bld) Globulin mass conc 3.1 2.7-4.2 g/dL Normal 06-30-2013 Comprehensive Internal (S) Medicine ( 14634) Glucose mass conc 63 70-110 mg/dL Abnormal 06-30-2013 C omprehensive Internal Medicine ( 85460) Potassium molar conc 4.2 3.5-5.1 mmol/L Normal 3 [facility] Internal Medicine ( 32327) Protein mass conc 7.6 6.4-8.2 g/dL Normal 06-30-2013 C omprehensive Internal Medicine ( 32649) Sodium molar conc 140 136-145 mmol/L Normal 06-30-2013 C omprehensive Internal Medicine ( 36026) Urea nitrogen mass 9 7-18 mg/dL Normal 06-30-2013 Comprehensive Internal conc Medicine ( 26768) 7 5-15 1 Normal 06-30-2013 Comprehen sive Internal Medicine ( 27883) 155 mL/min Normal 06-30-2013 [facility] ( 47046) 70 50-136 U/L Normal 06-30-2013 [facility] ( 77608) 15.0 10-20 {RATIO} Normal 06-30-2013 [facility] ( 25645) 0.70 0.00-1.00 mg/dL Normal 06-30-2013 [facility] ( 25036) 1.5 0.9-2.4 {RATIO} Normal 06-30-2013 [facility] ( 81363) cbcmd Ordered By: Sy stem Form Builder on 2013-06-30 Erythrocyte 13.6 11.6-14.6 % Normal 06-30-2013 Compreh ensive distribution width I nternal Medicine Ratio (RBC) (94351) Hematocrit Volume 38.6 37-47 % Normal 06-30-2013 C omprehensive Fraction (Bld) Inter nal Medicine (49802) Hemoglobin mass conc 14.0 12.0-15.0 g/dL Normal 3 Comprehensive (Bld) Internal M edicine (89623) MCH Entitic mass 30.7 27.0-32.0 pg Normal 06-30-2013 Co mprehensive (RBC) Internal M edicine (40647) MCHC mass conc (RBC) 36.3 32-36 g/dL Abnormal 3 Comprehensive Internal M edicine (46573) MCV Entitic volume 84.6 81-99 fL Normal 06-30-2013 Comprehensive (RBC) Internal M edicine (33223) Platelet mean volume 11.2 6.2-12.0 fL Normal 3 Comprehensive Entitic volume (Bld) Internal Medicine (29986) Platelets #/vol (Bld) 240 150-450 K/mm3 Normal 06-30-20 13 Comprehensive Internal M edicine (06016) RBC #/vol (Bld) 4.56 4.2-5.4 {M/mm3} Normal 06-30-2013 Com prehensive Internal M edicine (89543) WBC #/vol (Bld) 6.4 4.4-11.0 {k/mm3} Normal 06-30-2013 Com prehensive Internal M edicine (77787) 7.0 0-10 % Normal 06-30-2013 Comprehen [facility] Internal M edicine (24443) 0.9 0-5 % Normal 06-30-2013 [facility] (04631) 30.7 19-41 % Normal 06-30-2013 Comprehen [facility] Internal M edicine (96526) 0.00 0.0-0.9 % Normal 06-30-2013 Comprehen [facility] Internal M edicine (21185) Comment: IG% - Immature Granulocytes (promyelocytes, myelocytes,metamyelocytes) >1.0% indicates that a LEFT SHIFT ispresent. 0.2 0-1 % Normal 06-30-2013 Comprehen [facility] Internal Medicine (50324) 41.7 35.1-43.9 fL Normal 06-30-2013 Comprehen [facility] Internal Medicine (22576) 61.2 47-70 % Normal 06-30-2013 [facility] (44335) 3.9 2.0-7.7 3/uL Normal 06-30-2013 [facility] (30031) abdomen/pelvis with contrast Ordered By: Change Management Facilitator on 2013-06-30 See Note Normal 06-30-2013 [facility] (50276) Comment: STUDY: CT ABDOMEN AND PELVIS WITH [...] Signed:Melissa PantojaJune 30, 2013 at 3:40:31 PM [id number] y Signed GP/GP If you are the referring physician and would like to consult with theradiologist who provided this interpretation, please contmack Benton M.D. at [phone]. If this radiologist is unavaila ble, youwill [...] Mcbride MD spine lumbar (routine) Ordered By: Change Management Facilitator on 2013-04-04 See Note Normal 04-04-2013 [facility] Internal Medicine (38519) Comment: PROCEDURE: MRI LUMBAR SPINE WITHOUT CONTRAST [...] Mckinney M.D.April 04, 2013 at 7:56:09 PM EDT([phone] Estephania d AM/AM If you are the referring physician and would like to consult with t heradiologist who provided this interpretation, please contact Melissa Rg at . If this radiologist is unavailable, you will bedire cted to another radiologist to assist. If you are a patient with a questio n regarding this report, pleasecontactyour referring physician directly . Professional Interpretation Provided By: [employer], Phone , These documents contain legally protected [...] by: Raegan Mckinney MD vitamin d hydroxy (39622) Ordered By: Change Management Facilitator on 2012-10-25 25-Hydroxyvitamin 23.5 30.0-100.0 ng/mL Abnormal 10-25-2012 [facility] D2+25-Hydroxyvitamin D3 Internal Medicine mass conc (43663) Comment: Vitamin D deficiency has bee n defined by the [place] and an Endocrine Society practice g uideline as alevel of serum 25-OH vitamin D less than 20 ng/mL (1,2).The Endo crine Society went on to further define vitamin Dinsufficiency as a level be tween 21 and 29 ng/mL (2).1. IOM ([place]). 2010. Dietary ref erence intakes for calcium and D. [place]: The National Academies Press .2. Ezra MF, Griselda NC, Asad FELDMAN, et al. Evaluation, treatment , and prevention of vitamin D deficiency: an Endocrine Society clinical p nimesh guideline. JCEM. 2010; 96(7):1911-30. PATIENT NOT FASTINGPERFORMED BY: CB [facility] Vddumk1195 [facility] [id number] tsh (29458) Ordered By: Change Management Facilitator on 2012-10-25 Thyrotropin Qn 1.560 0.450-4.500 {uIU/mL} Normal 10-25-2012 [facility] ( 39544) Comment: PATIENT NOT FASTINGPERFORMED BY: CB [facility] [id number] [address] [facility] [id number] Information: [id number] urine matt culture-identificatn (20584) Ordered By: Change Management Facilitator on 2010-08-10 Bacteria identified Cx Nom MUG Normal [facility] (U) (73124) Comment: Mixed urogenital farzaneh PATIENT NOT FASTINGPERFORMED BY: JONNY [facility] Taphri1001 [facility] [id number] Information: [id number] Bacteria identified Cx Final report Normal 07-23 [facility] Internal Nom (U) Medicine ( 94222) Comment: PATIENT NOT FASTINGPERFORMED BY: JONNY [facility] Rwcejs8748 [facility] [id number] Information: [id number] urinalysis, office (62645) on 2010-08-10 Bilirubin Ql (U) Small Normal 08-10-2010 [facility] Internal Medicine ( 65764) Glucose Test strip mass Negative Normal 2009 [facility] Internal conc (U) Medicine ( 31996) Hemoglobin Ql (U) Negative Normal 08-10-2010 C omprehens[facility] Internal Medicine ( 19224) Ketones Ql (U) Negative Normal 08-10-2010 Comp rehensive Internal Medicine ( 32986) Leukocyte esterase Test Trace Normal 2009 [facility] Internal strip Ql (U) Medicin e (21562) Nitrite Ql (U) Negative Normal 08-10-2010 Comp rehensive Internal Medicine ( 42327) pH (U) 8.5 1 Normal 08-10-2010 Comprehen sive Internal Medicine ( 02917) Protein Ql (U) 100 mg/dL Normal 08-10-2010 Comp rehensive Internal Medicine ( 21192) Specific gravity Relative 1.015 1 Normal 07-23 [facility] Internal Density (U) Medicine (83711) Urobilinogen mass/time 4 mg/dL Normal 010 [facility] Internal (24H U) Medicine ( 02558) thin prep pap (26247) Ordered By: Change Management Facilitator on 2010-08-10 Microscopic observation Other . Normal 08-10-2010 [facility] Internal Medicine stain Nom (Unsp spec) (96791) Comment: Source.............Cervical; EndocervicalNo. of containers..01 CYTYC Thin Prep VialPERFORMED BY: LUIS EDUARDO Quesada [facility] Iahbtkcqof447 [facility] [id number] BY: =G [facility] Lzgjnnvvqm880 [facility] [id number] Information: [id number] Pathology report final SPRCS Abnormal 010 Comprehensive Internal diagnosis [facility] (67453) Comment: EPITHELIAL CELL ABNORMALITY. LOW-GRADE SQUAMOUS INTRAEPITHELIAL LESION (LGSIL); MILD DYSPLASIA ISPR ESENT.Satisfactory for evaluation. Endocervical and/or squamous metaplasticc ells (endocervical component) are present.V72.31 ; Routine gynecological exam [facility], [employer] [employer] (ASCP)Mary Barbour MD, [facility] hologist Source.............Cervical; EndocervicalNo. of containers..01 CYTYC Thin Prep VialPERFORMED BY: WB Sangita 121nexus Wbbojjabqb472 [place] [id number] BY: =G [facility] Zgxlzosxxz733 [place] PlazaM[facility] Hospitalrleston [place] [id number] Information: [id number] Protein mass conc [facility] Normal 08-10-2010 [facility] Internal Medicine (73738) Comment: 795.03The Pap smear is a scr [...] CYTYC Thin Prep VialPERFORMED BY: WB Sangita PagoFacilmartita Nziguywwkt238 [place] [id number] BY: =G [facility] Elccsqckip373 [place] [id number] Information: [id number] SPRCS Normal 08-10-2010 [facility] Internal Medicine (02389) Comment: 795.03The Pap smear is a scr [...] containers..01 CYTYC Thin Prep VialPERFORMED BY: Sangita PagoFacilmartita MooneyAyshpztgyg147 [facility] CenterpatoF[facility] W [id number] BY: =G [facility] Xcnzcokzdt428 [facility] W [id number] Information: [id number] hpv, high-risk Order ed By: Change Management Facilitator on 2010-08-10 HPV Positive Abnormal 08-10-2010 [facility] 16+18+31+33+35+39+45+51+52+56+58+59+68 Internal DNA Probe+sig amp Ql (Cvx) Medicine (12480) Comment: This high-risk HPV test dete cts thirteen high-risk types(16/18/31/33/35/39/45/5 1/52/56/58/59/68) without differentiation. . Source.............Cervical; EndocervicalNo. of containers..01 CYTYC Thin Prep VialPERFORMED BY: [facility] PagoFacilmartita MooneyGpjgtwufzr054 [facility] W [id number] BY: =G [facility] Augetqgrjb653 [facility] W [id number] hcg quant. Ordered B y: Change Management Facilitator on 2010-05-09 < 1 Normal 05-09-2010 [facility] Internal Medicine (64770) l/s spine,min 4 views (mt) Ordered By: Change Management Facilitator on 2009-07-21 See Note Normal 07-21-2009 [facility] Internal Medicine (93183) Comment: Exam Number: [id number] CLINI KENAN:23-year-old male with low back pain [...] spine. Reported By: FRANCHESKA JAMES Dr. calcifediol (73821) Ordered By: Brandee Del Rio on 2009-07-09 Calcitriol mass conc 32.1 32.0-100.0 ng/mL Normal 07-09-20 09 [facility] ( 21220) Comment: Recent studies consider the lower limit of 32.0 ng/mL to be athreshold for optimal health.[place] MEEHAN. J Nutr. 2004;135(2):317-22. Draw around Jul 06 2009; DAVID MORSE NOT FASTINGClinical Information: ADD [id number], [id number] PERFORMED BY: Gra[employer]70 [employer] GenomicsFormerly [facility], [facility] [id number] vitamin b-12 (cyanocobalamin) (68071) Ordered By: Brandee Del Rio on 2009-03-29 Cobalamin (Vitamin B12) 430 211-911 pg/mL Normal 2008 [facility] Internal mass conc Medicine ( 79462) Comment: PATIENT NOT FASTINGPERFORMED BY: [employer] LabTelormedixrp Ftjxqd0673 [address] [facility] [place] [id number] tsh (83637) Ordered By: Brandee Del Rio on 2009-03-29 Thyrotropin Qn 2.130 0.450-4.500 {uIU/mL} Normal 03-29-2009 [facility] Internal Medicine ( 78601) Comment: PATIENT NOT FASTINGPERFORMED BY: [employer] LabTelormedixrp Lcblrj0061 [address]uin [place] [id number] sed rate erythrocyte (66550) Ordered By: Brandee Del Rio on 2009-03-29 ESR Velocity (Bld) 2 0-20 mm/h Normal 03-29-2009 [facility] (82407) Comment: PATIENT NOT FASTINGPERFORMED BY: JONNY [facility] Sdmqwo6216 [facility] [id number] rheumatoid factor-quant (21958) Ordered By: Brandee Del Rio on 2009-03-29 Rheumatoid factor Qn 6.4 0.0-13.9 {IU/mL} Normal 9 [facility] ( 37143) Comment: PATIENT NOT FASTINGPERFORMED BY: [facility] Bkshfu5024 [facility] [id number] metabolic panel, comprehensive (86275) Ordered By: Brandee Del Rio on 2009-03-29 Albumin mass conc 5.2 3.5-5.5 g/dL Normal 03-29-2009 C omprehensive Internal Medicine (36192) Comment: PATIENT NOT FASTINGClinical Information: ADD DRAW FEE 350539,[id number] PERFORMED BY: JONNY [facility] Dub [id number] [facility] [id number] Albumin/Globulin mass ratio 2.0 1.1-2.5 1 Normal [facility] Medicine ( 52109) Comment: PATIENT NOT FASTINGClinical Information: ADD DRAW FEE 041142,[id number] PERFORMED BY: JONNY [facility] Dub pin6750 [facility] [id number] ALP enzyme act/vol 68 25-150 [iU]/L Normal 03-29-2009 [facility] (06496) Comment: PATIENT NOT FASTINGClinical Information: ADD DRAW FEE 236726,[id number] PERFORMED BY: [facility] Dub [id number] [facility] [id number] ALT enzyme act/vol 14 0-40 [iU]/L Normal 03-29-2009 [facility] (18159) Comment: PATIENT NOT FASTINGClinical Information: ADD DRAW FEE 575322,[id number] PERFORMED BY: [facility] Dub [id number] [facility] [id number] AST enzyme act/vol 18 0-40 [iU]/L Normal 03-29-2009 [facility] (74713) Comment: PATIENT NOT FASTINGClinical Information: ADD DRAW FEE 958270,[id number] PERFORMED BY: CB [facility] Dub [id number] [address] [facility] [place] [id number] Bilirubin mass conc 1.2 0.1-1.2 mg/dL Normal 03-29-2009 [facility] Internal Medicine ( 27762) Comment: PATIENT NOT FASTINGClinical Information: ADD DRAW FEE 850081,[id number] PERFORMED BY: CB [facility] Dub [id number] [address] [facility] [id number] Calcium mass conc 10.3 8.5-10.6 mg/dL Normal 03-29-2009 [facility] Internal Medicine ( 46559) Comment: PATIENT NOT FASTINGClinical Information: ADD DRAW FEE 616850,[id number] PERFORMED BY: CB [facility] Dub dzc1079 [address] [facility] [id number] Chloride molar conc 104 97-108 mmol/L Normal 03-29-2009 [facility] Internal Medicine ( 64736) Comment: PATIENT NOT FASTINGClinical Information: ADD DRAW FEE 001242,[id number] PERFORMED BY: CB [facility] Dub [id number] [facility] [id number] CO2 molar conc 21 20-32 mmol/L Normal 03-29-2009 [facility] (83846) Comment: PATIENT NOT FASTINGClinical Information: ADD DRAW FEE 922923,[id number] PERFORMED BY: CB [facility] Dub [id number] [facility] [id number] Creatinine mass conc 0.78 0.57-1.00 mg/dL Normal 9 [facility] Internal Medicine ( 07489) Comment: PATIENT NOT FASTINGClinical Information: ADD DRAW FEE 356297,[id number] PERFORMED BY: CB [facility] Dub [id number] [facility] [id number] GFR/1.73 sq M >59 mL/min/{1.73_m2} Normal 9 [facility] Internal predicted among [facility] (86965) blacks MDRD vol rate/area (S/P/Bld) Comment: Note: Persistent reduction f or 3 months or more in an eGFR<60 mL/min/1.73 m2 defines CKD. Patients with e GFR values>/=60 mL/min/1.73 m2 may also have CKD if evidence of persistentpro teinuria is present. Additional information may be found [email or web address]. PATIENT NOT FASTINGClinical Information: ADD DRAW FEE 896561,[id number] PERFORMED BY: CB [facility] Dub [id number] [address] [place] [id number] GFR/1.73 sq >59 mL/min/{1.73_m2} Normal 03-29-2009 [facility] Internal M.predicted MDRD Med [facility] (86969) (S/P/Bld) [Vol rate/Area] Comment: PATIENT NOT FASTINGClinical Information: ADD DRAW FEE 501510,[id number] PERFORMED BY: CB [facility] Dub [id number] [address] [place] [id number] GFR/1.73 sq >59 mL/min/{1.73_m2} Normal 03-29-2009 Comprehensive Internal M.predicted MDRD vol [facility] (39025) rate/area Comment: PATIENT NOT FASTINGClinical Information: ADD DRAW FEE 078106,[id number] PERFORMED BY: CB [facility] Dub [id number] [address] [facility] [place] [id number] Globulin mass conc (S) 2.6 1.5-4.5 g/dL Normal 009 [facility] Medicine ( 78283) Comment: PATIENT NOT FASTINGClinical Information: ADD DRAW FEE 973372,[id number] PERFORMED BY: CB [facility] Dub [id number] [address] [facility] [place] [id number] Glucose mass conc 91 65-99 mg/dL Normal 03-29-2009 [facility] Internal [facility] (33925) Comment: PATIENT NOT FASTINGClinical Information: ADD DRAW FEE 591337,[id number] PERFORMED BY: CB [facility] Dub [id number] [address] [facility] [place] [id number] Potassium molar conc 4.3 3.5-5.2 mmol/L Normal 9 [facility] Medicine ( 28927) Comment: PATIENT NOT FASTINGClinical Information: ADD DRAW FEE 001493,[id number] PERFORMED BY: CB [facility] Dub [id number] [address] [facility] [id number] Protein mass conc 7.8 6.0-8.5 g/dL Normal 03-29-2009 [facility] Internal Medicine (84386) Comment: PATIENT NOT FASTINGClinical Information: ADD DRAW FEE 033272,[id number] PERFORMED BY: CB [facility] Dub [id number] [address] [facility] [id number] Sodium molar conc 141 135-145 mmol/L Normal 03-29-2009 [facility] Internal Medicine ( 31108) Comment: PATIENT NOT FASTINGClinical Information: ADD DRAW FEE 313321,[id number] PERFORMED BY: CB [facility] Dub [id number] [address] [facility] [place] [id number] Urea nitrogen mass conc 11 5-26 mg/dL Normal 2008 [facility] Medicine ( 05766) Comment: PATIENT NOT FASTINGClinical Information: ADD DRAW FEE [id number],[id number] PERFORMED BY: CB [facility] Dub [id number] [address] [facility] [id number] Urea nitrogen/Creatinine mass 14 8-27 1 Normal 03-29-2009 [facility] Internal ratio Medicine ( 72969) Comment: PATIENT NOT FASTINGClinical Information: ADD DRAW FEE 270716,[id number] PERFORMED BY: CB [facility] Dub [id number] [facility] [id number] lqd pap [id number] Order ed By: Change Management Facilitator on 2009-03-29 . Normal 03-29-2009 [facility] Internal Medicine (47317) Comment: CYTOLOGY INFORMATION:- CLINI KENAN INFORMATION: - DATE LMP/MENOPAUSE: 03/17/09 LMP- COLLECTION VIAL: Thin P rep Vial- SCREENING NURSE SOURCE: CERVICAL/ENDOCERVICAL- COLLECTION TECHNIQUE: BRUSH/ SPATULA Comment Normal 03-29-2009 [facility] Internal Medicine (67071) Comment: Satisfactory for evaluation. Endocervical and/or squamous metaplasticcells (endocervical component) are present. CYTOLOGY INFORMATION:- CLINI KENAN INFORMATION: - DATE LMP/MENOPAUSE: 03/17/09 LMP- COLLECTION VIAL: Thin P rep Vial- SCREENING NURSE SOURCE: CERVICAL/ENDOCERVICAL- COLLECTION TECHNIQUE: BRUSH/ SPATULA [place] [...] HPV testing was performed . .Performed At: [address], [place] [id number] 8 NEGATIVE FOR INTRAEPITHELIAL LESION AND MALIGNANCY.FUNGAL ORGANISMS MORPHOLOGICALLY CONSISTENT W [facility] ANDREE SPECIES AREPRESENT. folate (99767) Order ed By: Brandee Del Rio on 2009-03-29 Folate mass conc 7.4 ng/mL Normal 03-29-2009 Co [facility] Internal Medicine (74164) Comment: Indeterminate: 3.4 - 5.4 Def icient: <3.4 PATIENT NOT FASTINGPERFORMED BY: CB [facility] Dynwpg9978 [address] [place] [id number] cbc (auto) (43205) O rdered By: Brandee Del Rio on 2009-03-29 Erythrocyte distribution 14.5 11.7-15.0 % Normal 03-29 Comprehensive Internal width Ratio (RBC) Me dicine (92796) Comment: PATIENT NOT FASTINGPERFORMED BY: CB [facility] Sztixl3609 [address] [place] [id number] Hematocrit Volume 42.5 34.0-44.0 % Normal 03-29-2009 C omprehensive Internal Fraction (Bld) Medic ine (17255) Comment: PATIENT NOT FASTINGPERFORMED BY: CB [facility] Twvonz8849 [address] [place] [id number] Hemoglobin mass conc 14.9 11.5-15.0 g/dL Normal 9 [facility] Internal (Bld) Medicine ( 77489) Comment: PATIENT NOT FASTINGPERFORMED BY: CB [facility] Liewyw7758 [address] ShypDublin [place] [id number] MCH Entitic mass (RBC) 31.4 27.0-34.0 pg Normal 009 [facility] Internal Medicine ( 06028) Comment: PATIENT NOT FASTINGPERFORMED BY: CB [facility] Rvokxg3961 [address] ShypD[place] [id number] MCHC mass conc (RBC) 35.1 32.0-36.0 g/dL Normal 9 [facility] Internal Medicine ( 78890) Comment: PATIENT NOT FASTINGPERFORMED BY: JONNY [facility] Ztnaos2177 [address] [place] [id number] MCV Entitic volume (RBC) 90 80-98 fL Normal 03-29 [facility] Internal Medicine ( 74439) Comment: PATIENT NOT FASTINGPERFORMED BY: CB [facility] Lnemxg5405 [address] [place] [id number] Platelets #/vol 262 140-415 {x10E3/uL} Normal 03-29-2009 [facility] Internal (d) Medicine ( 96608) Comment: Please note reference inte rval change PATIENT NOT FASTINGPERFORMED BY: CB [facility] Blnrjl5966 [address] [facility] [id number] RBC #/vol (Bld) 4.75 3.80-5.10 {x10E6/uL} Normal 03-29-2009 Co [facility] Internal Medicine ( 46052) Comment: PATIENT NOT FASTINGPERFORMED BY: CB [facility] Pnltjh4028 [address] [facility] [place] [id number] WBC #/vol (Bld) 4.9 4.0-10.5 {x10E3/uL} Normal 03-29-2009 [facility] Internal Medicine ( 10417) Comment: PATIENT NOT FASTINGPERFORMED BY: CB [facility] Hswhty4158 [address] [facility] [id number] calcifediol (54688) Ordered By: Brandee Del Rio on 2009-03-29 Calcitriol mass conc 22.8 32.0-100.0 ng/mL Abnormal 03-29-20 09 [facility] Internal Medicine ( 06008) Comment: Recent studies consider the lower limit of 32.0 ng/mL to be athreshold for optimal health.[place] MEEHAN. J Nutr. 2005 Nov;135(2):317-22. PATIENT NOT FASTINGPERFORMED BY: CB [facility] Nbzphu6927 [address] [facility] [id number] c-reactive protein (01887) Ordered By: Brandee Del Rio on 2009-03-29 CRP mass conc 0.4 0.0-4.9 mg/L Normal 03-29-2009 Compr ehensive Internal Medicine (86373) Comment: PATIENT NOT FASTINGPERFORMED BY: JONNY [facility] Hifnfa6590 [address] [place] [id number] francine (antinuclear antibody) (66077) Ordered By: Brandee Del Rio on 2009-03-29 Nuclear Ab Ql (S) Negative Normal 03-29-2009 C [facility] Internal Medicine (69069) Comment: PATIENT NOT FASTINGPERFORMED BY: JONNY [facility] Fzqaff6255 [address] [place] [id number] urine culture,comprehensive Ordered By: Change Management Facilitator on 2009-03-24 Bacteria identified Cx Nom NG36 Normal [facility] Internal (U) Medicine ( 97441) Comment: No growth in 36 - 48 hours. PATIENT NOT FASTINGClinical Information: SRC:UR ADD [id number] PERFORMED BY: JONNY [facility] Iftuwd1764 [address] adDuboaklawn hospital [place] [id number] Bacteria identified Cx Final report Normal Comprehensive Internal Nom (U) Medicine ( 25286) Comment: PATIENT NOT FASTINGClinical Information: SRC:UR ADD [id number] PERFORMED BY: JONNY [facility] Eolfwl5582 [address] adDubPenobscot [facility] [id number] urinalysis, office (50600) on 2009-03-24 Bilirubin Ql (U) Negative Normal 03-24-2009 Co m[facility] Internal Medicine ( 60312) Glucose Test strip mass Negative Normal 2008 [facility] Internal conc (U) Medicine ( 84087) Hemoglobin Ql (U) Negative Normal 03-24-2009 C [facility] Internal Medicine ( 85874) Ketones Ql (U) Negative Normal 03-24-2009 Comp rehensive Internal Medicine ( 30320) Leukocyte esterase Test Negative Normal 2008 Comprehensive Internal strip Ql (U) Medicin e (28388) Nitrite Ql (U) Negative Normal 03-24-2009 Comp rehensive Internal Medicine ( 63188) pH (U) 7.0 1 Normal 03-24-2009 Comprehen sive Internal Medicine ( 16655) Protein Ql (U) Negative Normal 03-24-2009 Comp rehensive Internal Medicine ( 53606) Specific gravity Relative 1.015 1 Normal 06-0 [facility] Internal Density (U) Medicine (85245) Urobilinogen mass/time (24H Normal Normal Comprehensive Internal U) Medicine ( 66670) urinalysis, office (10318) on 2008-08-06 Bilirubin Ql (U) Small Normal 08-06-2008 Co mprehensive Internal Medicine (95696) Comment: normal Glucose Test strip mass Negative Normal 2007 [facility] Internal conc (U) Medicine ( 90543) Comment: normal Hemoglobin Ql (U) Negative Normal 08-06-2008 C omprehensive Internal Medicine (89899) Comment: normal Ketones Ql (U) Small Normal 08-06-2008 [facility] (84518) Comment: normal Leukocyte esterase Test Negative Normal 2007 [facility] Internal strip Ql (U) Medicin e (96790) Comment: aw normal Nitrite Ql (U) Negative Normal 08-06-2008 [facility] (45182) Comment: normal pH (U) 6.0 1 Normal 08-06-2008 [facility] Internal Medicine (80994) Comment: normal Protein Ql (U) 30 mg/dL Normal 08-06-2008 [facility] (33890) Comment: normal Specific gravity Relative 1.025 1 Normal 07-22 [facility] Internal Medicine Density (U) (91870) Comment: normal Urobilinogen mass/time (24H Normal Normal Comprehensive Internal U) Medicine ( 28604) Comment: normal lipid panel (69015) Ordered By: Henrietta Collazo on 2008-07-02 Cholesterol in HDL mass 52 40-59 mg/dL Normal 2007 [facility] Internal conc Medicine ( 18429) Comment: PATIENT WAS FASTINGClinical Information: ADD DRAW FEE 592843 ADD J 83703 PERFORMED BY: CB [facility] Dub [id number] [facility] [id number] Cholesterol in LDL mass 95 0-99 mg/dL Normal 2007 [facility] Internal conc Medicine ( 80821) Comment: PATIENT WAS FASTINGClinical Information: ADD DRAW FEE 581875 ADD J 05304 PERFORMED BY: CB [facility] Dub yuv9138 [facility] [id number] Cholesterol in 1.8 0.0-3.2 {ratio_units} Normal 07-02-2008 Comprehensive LDL/Cholesterol in HDL Internal Medicine mass ratio (61878) Comment: PATIENT WAS FASTINGClinical Information: ADD DRAW FEE 430500 ADD J 58717 PERFORMED BY: CB [facility] Dub [id number] [address] RoadAtrium [facility]in [place] [id number] Cholesterol in VLDL mass 21 5-40 mg/dL Normal 07-02 [facility] Internal conc Medicine ( 19593) Comment: PATIENT WAS FASTINGClinical Information: ADD DRAW FEE 688150 ADD J 98025 PERFORMED BY: CB [facility] Dub [id number] [address] RoadAtrium Health Providencein [place] [id number] Cholesterol mass conc 168 100-199 mg/dL Normal 07-02-20 08 [facility] Internal Medicine ( 70295) Comment: PATIENT WAS FASTINGClinical Information: ADD DRAW FEE 432370 ADD J 88795 PERFORMED BY: CB [facility] Dub [id number] [address] [facility] [place] [id number] Triglyceride mass conc 107 0-149 mg/dL Normal 008 [facility] Internal Medicine ( 39006) Comment: PATIENT WAS FASTINGClinical Information: ADD DRAW FEE [id number] ADD J [id number] PERFORMED BY: CB [facility] Dub [id number] [facility] [id number] Vital Signs Vital Sign Description Value / Unit Date Location The following section is limited to 5 en tries per type and includes entries from the following time range: [id number] - 9. BMI (Body Mass Index) 25.06 kg/m2 06-30-2020 [facility] (36414) BMI (Body Mass Index) 25.06 kg/m2 06-11-2020 [facility] (78890) BMI (Body Mass Index) 25.06 kg/m2 [facility]04-[facility] (12481) BMI (Body Mass Index) 24.44 kg/m2 04-29-2020 [facility] (13727) BMI (Body Mass Index) 24.59 kg/m2 09-02-2019 [facility] (09846) Body Temperature 96.8 [degF] 06-30-2020 [facility] (68862) Body Temperature 96.8 [degF] 06-11-2020 [facility] (20715) Body Temperature 97.1 [degF] 04-29-2020 [facility] (88953) Body Temperature 97.1 [degF] 09-02-2019 [facility] (37491) Body Temperature 97.3 [degF] 08-11-2019 [facility] (21512) Body weight 72.59 kg 06-30-2020 [facility] (31756) Body weight 72.59 kg 06-11-2020 [facility] (27048) Body weight 72.59 kg 06-04-2020 [facility] (99081) Body weight 70.77 kg 04-29-2020 [facility] (21059) Body weight 71.23 kg 09-02-2019 [facility] (79707) BP Diastolic 72 mm[Hg] 06-30-2020 [facility] (27192) BP Diastolic 72 mm[Hg] 06-11-2020 [facility] (47051) BP Diastolic 80 mm[Hg] 04-29-2020 [facility] (06959) BP Diastolic 70 mm[Hg] 09-02-2019 [facility] (45576) BP Diastolic 68 mm[Hg] 08-11-2019 [facility] (22599) BP Systolic 118 mm[Hg] 06-30-2020 [facility] (56052) BP Systolic 120 mm[Hg] 06-11-2020 [facility] (69068) BP Systolic 111 mm[Hg] 04-29-2020 [facility] (92153) BP Systolic 112 mm[Hg] 09-02-2019 [facility] (29631) BP Systolic 112 mm[Hg] 08-11-2019 [facility] (30550) BSA (Body Surface Area) 1.84 m2 06-30-2020 [facility] (24218) BSA (Body Surface Area) 1.84 m2 06-11-2020 [facility] (82416) BSA (Body Surface Area) 1.84 m2 06-04-2020 [facility] (99698) BSA (Body Surface Area) 1.82 m2 04-29-2020 [facility] (14611) BSA (Body Surface Area) 1.82 m2 09-02-2019 [facility] (60386) Head Circumference 0 cm 07-26-2009 [facility] (40801) Head Circumference 0 cm 07-21-2009 [facility] (39283) Head Circumference 0 cm 07-16-2009 [facility] (09498) Head Circumference 0 cm 07-09-2009 [facility] (37979) Head Circumference 0 cm 04-05-2009 [facility] (37183) Height 170.18 cm 06-30-2020 [facility] (24333) Height 170.18 cm 06-11-2020 [facility] (89673) Height 170.18 cm 06-04-2020 [facility] (40561) Height 170.18 cm 04-29-2020 [facility] (55838) Height 170.18 cm 09-02-2019 [facility] (09353) Pulse (Heart Rate) 62 /min 06-30-2020 [facility] (35076) Pulse (Heart Rate) 61 /min 06-11-2020 [facility] (47579) Pulse (Heart Rate) 74 /min 04-29-2020 [facility] (86351) Pulse (Heart Rate) 79 /min 09-02-2019 [facility] (03919) Pulse (Heart Rate) 91 /min 08-11-2019 [facility] (95228) Pulse Oximetry 96 % 06-30-2020 [facility] (45897) Pulse Oximetry 98 % 06-11-2020 [facility] (52708) Pulse Oximetry 93 % 04-29-2020 [facility] (21931) Pulse Oximetry 98 % 09-02-2019 [facility] (10847) Pulse Oximetry 99 % 08-11-2019 [facility] (67778) Respiratory Rate 16 /min 06-30-2020 [facility] (68369) Respiratory Rate 16 /min 06-11-2020 [facility] (09202) Respiratory Rate 16 /min 04-29-2020 [facility] (20640) Respiratory Rate 16 /min 09-02-2019 [facility] (14736) Respiratory Rate 17 /min 08-11-2019 [facility] (09046) Encounters Date Type Reason Provider Location 09-01-2019 [...] [facility] - visit 10 minutes [facility] 06-11-2020 08-01-2019 Office outpatient BMI 22.0-22.9, [...] [facility] - visit 15 minutes [facility] 04-07-2014 04-05-2009 Office outpatient [facility] - visit 15 minutes [facility] 04-05-2009 10-26-2014 Office outpatient [facility] - visit 25 minutes [facility] 10-26-2014 08-06-2008 Office outpatient [facility] - visit 25 minutes [facility] 08-06-2008 05-22-2007 Office outpatient [facility] - visit [address] [facility] 05-22-2007 01-01-2019 Patient encounter Henrietta Collazo Compreh ensive procedure Henrietta Collazo Internal Med (43405) Henrietta Collazo 02-13-2014 Patient encounter Comprehens essence [...] Henrietta Collazo Comprehensi ve Internal 06-11-2020 Medicine (52708) Emergency Department 03-16-2020 - Comprehensi ve Internal Summary 03-23-2020 Medicine (37110) Discharge Instruction 03-12-2020 - [facility] 03-12-2020 Medicine (61277) Emergency Department 03-12-2020 - Comprehensi ve Internal Summary 03-18-2020 Medicine (10522) Venous Duplex Upper 01-01-2019 - Brandee Del Rio Comprehensiv e Internal Extremity 01-01-2019 Medicine (38226) Chest PA and Lateral 04-22-2018 - Mili Castro Comprehensi ve Internal 04-22-2018 Medicine (24363) Emergency Department 07-14-2017 - Comprehensi ve Internal Summary 07-14-2017 Medicine (21689) Cerv Spine 2 or 3 Views 07-14-2017 - Comprehe nsive Internal 07-14-2017 Medicine (36236) Stress Report 04-20-2017 - [facility] In [facility]al 04-20-2017 Medicine (70930) L/S Spine Bending 11-13-2014 - [facility] Flex/Ext 11-14-2014 Medicine (69725) Spine Lumbar (Routine) 11-13-2014 - Comprehen sive Internal 11-13-2014 Medicine (10380) Plan of Treatment Plan Description Date Location Procedure Education Eprescribed prescriptions 06-30-2020 [facility] (G8553) Medicine (11559) NMR Profile (93977) NMR Profile (23697) 06-30-2020 [facility] (09434) Procedure Education Eprescribed prescriptions 06-11-2020 [facility] (G8553) Medicine (82557) Provider Instructions for Follow up in 2 -3weeks- 06-11-2020 [facility] Treatment possible shoulder Medicine (5097 1) injection Procedure Education Eprescribed prescriptions 06-04-2020 [facility] (G8553) Medicine (02007) Provider Instructions for Reviewed Lab [facility] (17665) TSH (53531) TSH (39864) 04-29-2020 [facility] (99074) Procedure Education [facility]prescribed prescriptions [facility]-29-[facility] (23883) Provider Instructions for Follow up in 4 weeks 04-29-2020 [facility] Treatment Medicine (33214) Procedure Education Eprescribed prescriptions 09-02-2019 [facility]G85[facility] (55011) Provider Instructions for no information 09-02-2019 [facility] (74275) TSH (THYROID STIMULATING TSH (THYROID STIMULATING 09-01-2019 [facility] HORMONE) (23440) HORMONE) (45835) Medicine (9321 1) CBC & PLATELETS (AUTO) CBC & PLATELETS (AUTO) 09-01-2019 [facility] (84389) (02254) Medicine (69083) GLUCOSE (42193) GLUCOSE (50594) 09-01-2019 [facility] (40192) LIPID PANEL (49275) LIPID PANEL (02729) 09-01-2019 Compre[facility] ns[facility] Medicine (88672) Procedure Education Eprescribed prescriptions 08-11-2019 [facility] (G8553[facility] (98920) Provider Instructions for no information 08-11-2019 [facility] Internal Treatment Medicine (86954) Sputum Culture (82175) Sputum Culture (99305) 08-11-2019 [facility] (61072) Procedure Education Eprescribed prescriptions 01-01-2019 [facility] (G8553) Medicine (82237) Patient Education Sore Throat *: upper 07-02-2018 Comprehen sive Internal respiratory infection Medicine ( 60606) Procedure Education Eprescribed prescriptions 07-02-2018 [facility]G85[facility] Medicine (24475) Provider Instructions for Follow up if no 07-02-2018 [facility] Internal Treatment improvement or if Medicine (4469 1) symptoms worsen Patient Education Sinusitis *: sinus 04-22-2018 Comprehensi ve Internal infection Medicine (04118) Procedure Education Eprescribed prescriptions 04-22-2018 [facility] (G8553) Medicine (21629) Provider Instructions for no information 04-22-2018 [facility] Internal Treatment Medicine (06940) Provider Instructions for no information 07-17-2017 [facility] Internal Treatment Medicine (98193) Thin prep Pap (96533) (no Thin prep Pap (23477) (no 07-17-2017 [facility] STD testing) STD testing) Medicine (80364) Provider Instructions for no information 08-18-2016 [facility] Internal Treatment Medicine (13753) Patient Education Adult Immunization 07-05-2016 Comprehensi ve Internal Schedule: adult Medicine (56114) immunization schedule Provider Instructions for no information 07-05-2016 [facility] Internal Treatment Medicine (74525) Provider Instructions for no information 02-19-2015 [facility] Internal Treatment Medicine (30459) Thin prep Pap (57109) (no Thin prep Pap (12975) (no 02-19-2015 [facility] STD testing) STD testing) Medicine (57531) Provider Instructions for no information 12-14-2014 [facility] Internal Treatment Medicine (76576) Provider Instructions for Follow up if no 11-09-2014 [facility] Internal Treatment improvement or if Medicine (8967 1) symptoms worsen Provider Instructions for Follow up in 2 weeks 10-26-2014 [facility] (02600) Patient Education no information 04-07-2014 [facility] Internal Medicine (76425) Procedure Education Eprescribed prescriptions 04-07-2014 [facility] (G8553) Medicine (95107) Provider Instructions for *URI Treatment 04-07-2014 [facility] Internal Treatment Medicine (76416) Thin prep Pap (20679) Thin prep Pap (72734) 02-13-2014 [facility] (20814) Provider Instructions for no information 02-13-2014 [facility] Internal Treatment Medicine (29716) Provider Instructions for Reviewed Diagnostic Tests 07-07-2013 [facility] Internal Treatment Medicine (75876) T4, FREE (THYROXINE) T4, FREE (THYROXINE) 06-30-2013 [facility] Internal (10752) (86145) Medicine (63217) T3, FREE (TRIDOTHYRONINE) T3, FREE (TRIDOTHYRONINE) 06-30-2013 [facility] Internal (62196) (71866) Medicine (74276) C-REACTIVE PROTEIN C-REACTIVE PROTEIN 06-30-2013 [facility] (09550) (70996) Medicine (87036) SED RATE ERYTHROCYTE SED RATE ERYTHROCYTE 06-30-2013 [facility] Internal (79493) (84555) Medicine (63414) TSH (30767) TSH (14509) 06-30-2013 [facility] (98776) METABOLIC PANEL, METABOLIC PANEL, 06-30-2013 [facility] COMPREHENSIVE (69715) COMPREHENSIVE (26221) Medi cine (45977) CBC WITH MANUAL DIFF CBC WITH MANUAL DIFF 06-30-2013 [facility] Internal (40624) (71774) Medicine (33944) Provider Instructions for Solu Medrol Injection/ 04-03-2013 [facility] Internal Treatment Education Medicine (14264) Provider Instructions for Follow up in 1 month 11-25-2012 [facility] (39506) Provider Instructions for Follow up in 1 month 10-25-[facility] (70679) Provider Instructions for no information 08-10-2010 [facility] (14294) TEST - SERUM TEST - SERUM 05-09-2010 [facility] QUANTITATIVE (HCG) QUANTITATIVE (HCG) Medicine ( 55237) (28918) (83420) Comment: pt can be reached Urine Test, Urine Test, 10-20-2009 Comp rehensive Internal Office (29501) Office (13655) Medicine (12481) Provider Instructions for Continue Current 07-26-2009 Compr ehensive Internal Treatment Prescription(s) Medicine (18712) Provider Instructions for no information 07-21-2009 Compre hensive Internal Treatment Medicine (79957) CALCIFEDIOL (15154) CALCIFEDIOL (43579) 03-30-2009 Comprehe ns[facility] Medicine (77073) Comment: Draw Jun 30 Provider Instructions for no information 03-29-2009 [facility] (78358) thin prep (60771) (std thin prep (57089) (std 03-29-2009 [facility] testing) testing) Medicine (45206) Provider Instructions for *fatigue education 03-24-2009 Com prehensive Internal Treatment Medicine (50567) Provider Instructions for no information 05-22-2007 Compre hensive Internal Treatment Medicine (56449) no information [facility] (36735) no information [facility] (85683) no information [facility] (38477) no information [facility] (87169) no information [facility] (49473) no information [facility] (42923) no information [facility] (94204) no information [facility] (52706) no information [facility] (68569) no information [facility] (22469) no information [facility] (36497) no information [facility] (51167) no information [facility] (85546) no information [facility] (42715) no information [facility] (07436) no information [facility] (73189) no information [facility] (98289) Immunizations Vaccine Notes Status Date Location Influenza (3 years influenza, (completed) 10-22-2016 - Comprehen sive Internal and up) seasonal, 10-22-2016 Medicine (77079 ) injectable Comment: given at [employer] Payers Payer Name Policy Number Location [place] LILIYA/CHRISTIANO [id number] [facility] [employer] [facility] (33997) [employer] [id number] [employer] [facility] (95083) [employer] [id number] [facility] [employer] al Med (83013) [facility] [id number] [facility] Int ernal Med (48735) [facility] [id number] [facility] [employer] [facility] Med (31034) [facility] [employer] [facility] Medicine (01038) [id number] [facility] [employer] al Med (82008) Social History Type Social History Description Date Locat ion Caffeine Use [facility] In [facility]al Medicine (71092) Comment: occ Light Lives with parents Dog, [...] Advance Directives Name Dates Details Immunization Registry [place] - Effective on Effective: 26-S ep-2017 07/17/2017. Expiration date unspecified Name Dates Details Immunization Registry [place] - Effective on Effective: -S ep-201607/17/2017. Expiration date unspecified Name Dates Details Immunization Registry [place] - Effective on Effective: -S ep-201607/17/2017. Expiration date unspecified Name Dates Details Immunization Registry [place] - Effective on Effective: 26-S ep-2017 07/17/2017. Expiration date unspecified Name Dates Details Immunization Registry [place] - Effective on Effective: 26-S ep-2017 07/17/2017. Expiration date unspecified Name Dates Details Immunization Registry [place] - Effective on Effective: 26-S ep-2017 07/17/2017. Expiration date unspecified Name Dates Details Immunization Registry [place] - Effective on Effective: 26-S ep-2017 07/17/2017. Expiration date unspecified Name Dates Details Immunization Registry [place] - Effective on Effective: 26-S ep-2017 07/17/2017. Expiration date unspecified Name Dates Details Immunization Registry [place] - Effective on Effective: -S ep-2017 07/17/2017. Expiration date unspecified Name Dates Details Immunization Registry [place] - Effective on Effective: 26-S ep-2017 07/17/2017. Expiration date unspecified Name Dates Details Immunization Registry [place] - Effective on Effective: -S ep-2017 07/17/2017. Expiration date unspecified Name Dates Details Immunization Registry [place] - Effective on Effective: 26-S ep-2017 07/17/2017. [...] BE BASED ON THE PRIMARY CLINICAL RECORDS. [facility] provides no warranty or guarantee of the accuracy or completeness of information in this document. UNRECOGNIZED CONTENT PROVIDED BELOW FOR UNRECOGNIZED SECTION INFORMATION SOURCE DATE CREATED AUTHOR AUTHOR'S DAMASO Stiles 01/02/2019 [facility] [employer] al Med
== END 2020-03-12 18:09 | disposition home or self-care (01) ==
LOC: ED 16:31
PROVIDERS: Emergency Provider Emergency Medicine; PCP Internal Medicine
DX: Z77.21 Contact with and (suspected) exposure to potentially hazardous body fluids (principal)
CPT/HCPCS: 36415; 86703; 86706; 86803; 87340; 99283

== ENCOUNTER 2020-03-16 20:24 | Emergency (ER) | payer OTHER, SELFPAY ==
[2020-03-16 20:24] VITALS: BP 135/112; PULSE 71; RESP 18; TEMP 36.2; O2SAT 100; BMI 24.7
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
[2020-03-16] MEDS: RALTEGRAVIR POTASSIUM 400 MG TABLET PO (21:02)
[2020-03-16] MEDS: EMTRICITABINE/TENOFOVIR 1 TABLET TABLET PO (21:02)
[2020-03-16 21:21] VITALS: BP 134/78; PULSE 75; RESP 18; O2SAT 99
--- OUTSIDE RECORDS SUMMARY | 2020-08-03 17:31 | XMS RPT_ITS | CCD ---
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 identified RRF Normal 07-02-2018 Comprehensive Internal Respiratory culture Nom ([facility] Medicine (88252) spec) Comment: Routine respiratory farzaneh PATIENT NOT FASTINGPERFORMED BY: CB [facility] Sqxowo2524 [address] RoadDublin [place] [id number] Information: SRC:TH rapid strep test, office (73502) Ordered By: Sondra Patterson on 2018-07-02 S. pyogenes Ag IA Ql Negative Normal 8 Comprehensive Internal ([facility] spec) Medicine (22661) lipid panel (94924) Ordered By: Tube Splicer on 2017-08-20 Cholesterol in HDL mass 64 mg/dL Normal 2016 Comprehensive Internal conc Medicine ( 93358) Comment: PATIENT WAS FASTINGPERFORMED BY: CB [facility] Ddnaat0508 [address] RoadDublin [place] [id number] Cholesterol in LDL mass 107 0-99 mg/dL Abnormal 2016 Comprehensive Internal conc Medicine ( 99042) Comment: PATIENT WAS FASTINGPERFORMED BY: JONNY [facility] Hyojjb4606 [address] RoadDublin [place] [id number] Cholesterol in 1.7 0.0-3.2 {ratio_units} Normal 08-20-2017 Comprehensive LDL/Cholesterol in HDL Internal Medicine mass ratio (28390) Comment: LDL/HDL Ratio Men Women 1/2 Avg.Risk 1.0 1.5 Avg.Risk 3.6 3.2 2X Avg.Risk 6.2 5.0 3X Avg.Risk 8.0 6.1 PATIENT WAS FASTINGPERFORMED BY: CB [facility] Ujngdv3279 [address] RoadDublin [place] [id number] Cholesterol in VLDL mass 20 5-40 mg/dL Normal 08-20 Comprehensive Internal conc Medicine ( 69109) Comment: PATIENT WAS FASTINGPERFORMED BY: CB [facility] Tgycsv5188 [address] RoadDublin [place] [id number] Cholesterol mass conc 191 100-199 mg/dL Normal 08-20-20 17 Comprehensive Internal Medicine ( 27467) Comment: PATIENT WAS FASTINGPERFORMED BY: CB [facility] Viqhtw7944 [address] RoadFormerly [facility] Centerin [place] [id number] Triglyceride mass conc 100 0-149 mg/dL Normal 017 Comprehensive Internal Medicine ( 73627) Comment: PATIENT WAS FASTINGPERFORMED BY: CB [facility] Tbnffz0111 [address] [facility] HospitalDublin [place] [id number] glucose (07558) Orde red By: Tube Splicer on 2017-08-20 Glucose mass conc 90 65-99 mg/dL Normal 08-20-2017 C omprehensive Internal Medicine (59571) Comment: PATIENT WAS FASTINGPERFORMED BY: CB [facility] Aacwok8385 [address] RoadDublin [place] [id number] hpv automatic (77540) Ordered By: Tube Splicer on 2017-07-17 HPV Negative Normal 07-17-2017 Comprehen sive 16+18+31+33+35+39+45+51+52+56+58+59+68 Internal DNA Probe+sig amp Ql (Cvx) Medicine (32511) Comment: This high-risk HPV test dete cts thirteen high-risk types(16/18/31/33/35/39/45/5 1/52/56/58/59/68) without differentiation. . Source.............Cervix;En docervixNo. of containers..01 ThinPrep VialPERFORMED BY: [employer] [place] [facility] [id number] BY: =G Xtellus120 [facility] CenterProject FrogrMetallkraft ASMountain Point Medical Center [id number] Information: [id number] Microscopic observation Other . Normal 07-17-2017 Comprehensive Internal Medicine stain Nom (Unsp spec) (88239) Comment: Source.............Cervix;En docervixNo. of containers..01 ThinPrep VialPERFORMED BY: Xtellus120 [place] Movie MouthrMetallkraft ASMountain Point Medical Center [id number] BY: =G Xtellus120 [facility] CenterProject FrogrMetallkraft ASMountain Point Medical Center [id number] Information: [id number] Pathology report final [facility] Normal 017 Comprehensive Internal diagnosis [facility] Medicine (22475) Comment: NEGATIVE FOR INTRAEPITHELIAL LESION AND MALIGNANCY.Satisfactory for evaluation. Endocervical and /or squamous metaplasticcells (endocervical component) are present.Z11.5 Radha Tapia Manager Wound Care (ASCP) Source.............Cervix;En docervixNo. of containers..01 ThinPrep VialPERFORMED BY: WB [facility] Ipvwvohydc292 MobstatsrMetallkraft AScooper university hospital [place] [id number] BY: =G LabICB International120 RealTargetingzaProject [place] [id number] Information: [id number] PAPSMR Normal 07-17-2017 [facility] (29615) Comment: The Pap smear is a screening [...] docervixNo. of containers..01 ThinPrep VialPERFORMED BY: WB TicketStumblerrMetallkraft AScooper university hospital [place] [id number] BY: =G LabProcarta Biosystemsrp Vextprofms234 [place] LLCzaProject [place] [id number] Information: [id number] thin prep pap (71603) (no std testing) Ordered By: Tube Splicer on 2016-07-05 Normal 07-05-2016 [facility] (13952) Comment: Source.............Cervix;En docervixNo. of containers..01 CYTYC Thin Prep VialPATIENT NOT FASTINGPERFO RMED BY: =G [facility] Izjpkvteti593 [facility] [id number] BY: [employer] [id number] BY: Next audience Fesgtwjqnm[address] [id number] Information: [id number] igp, rfx aptima hpv ascu Ordered By: Tube Splicer on 2016-07-05 Diagnosis ICD code SPRCS Normal 07-05-2016 Comprehensive Internal [Identifier] Medicin hola (77974) Comment: R87.610The Pap smear is a sc [...] VialPATIENT NOT FASTINGPERFO RMED BY: =G [facility] Eldznbuofw[address] [place] [address] [id number] BY: GrandisYL [facility] [address] [id number] BY: [employer] [place] [address] [id number] Microscopic observation Other . Normal 07-05-2016 Comprehensive Internal Medicine stain Nom (Unsp spec) (60854) Comment: Source.............Cervix;En docervixNo. of containers..01 CYTYC Thin Prep VialPATIENT NOT FASTINGPERFO RMED BY: =G [facility] Siymfutfmb84[address] [id number] BY: [employer] [id number] BY: [place] [employer] Movie MouthrMetallkraft AScooper university hospital W [id number] Pathology report final SPRCS Abnormal 016 Comprehensive Internal diagnosis [facility] Medicine (74430) Comment: EPITHELIAL CELL ABNORMALITY. ATYPICAL SQUAMOUS CELLS OF UNDETERMINED SIGNIFICANCE.Satisfactory fo r evaluation. No endocervical component is identified.Z01.419Bruce Wade Land, Manager Wound Care (ASCP)Barb Hoffman MD, Pathologist Source.............Cervix;En docervixNo. of containers..01 CYTYC Thin Prep VialPATIENT NOT FASTINGPERFO RMED BY: =G [facility] Rnhbyldwqc009 [place] [employer] LLCzaProject Frogrlescooper university hospital W [id number] BY: The [employer] Companyrp [address] [id number] BY: WB [employer] [place] Movie MouthrMetallkraft AScooper university hospital W [id number] hpv aptima Ordered B y: Tube Splicer on 2016-07-05 HPV Negative Normal 07-05-2016 Comprehen sive 16+18+31+33+35+39+45+51+52+56+58+59+66+68 Internal DNA Probe+sig amp Ql (Cvx) Medicine (05645) Comment: This test detects fourteen h igh-risk HPV types (16/18/31/33/35/39/45/51/52/ 56/58/59/66/68) without differentiation. Source.............Cervix;En docervixNo. of containers..01 CYTYC Thin Prep VialPATIENT NOT FASTINGPERFO RMED BY: =G [facility] Necwkutcwp726 [place] Movie Mouthrlescooper university hospital W [id number] BY: GrandisYL Next audiencerp Wkzohqrgmnhs[address] [place] [address] [id number] BY: WB [employer] [place] [employer] LLCzaProject FrogrMetallkraft AScooper university hospital W [id number] hpv automatic (56910) Ordered By: Tube Splicer on 2015-02-19 HPV Negative Normal 02-19-2015 Comprehen sive 16+18+31+33+35+39+45+51+52+56+58+59+68 Internal DNA Probe+sig amp Ql (Cvx) Medicine (55724) Comment: This high-risk HPV test dete cts thirteen high-risk types(16/18/31/33/35/39/45/5 1/52/56/58/59/68) without differentiation. . Source.............Cervical; EndocervicalLMP / Prev Treat...CVG=022978Gn. of containers..01 CYTYC Thin Pr ep VialPATIENT NOT FASTINGPERFORMED BY: WB [facility] Fjiuufoyje472 [place] PlazaCharl[place] [id number] BY: =G [facility] Dikwdzkbac870 [place] PlazaCharleston [place] [id number] Information: [id number] Microscopic observation Other . Normal 02-19-2015 Comprehensive Internal Medicine stain Nom (Unsp spec) (29518) Comment: Source.............Cervical; EndocervicalLMP / Prev Treat...IKO=453109Cd. of containers..01 CYTYC Thin Pr ep VialPATIENT NOT FASTINGPERFORMED BY: WB [facility] Rgtkghhvgd407 [place] PlazaCharl[place] [id number] BY: =G [facility] Wwuqrwusxb513 [place] PlazaCharleston [place] [id number] Information: [id number] Pathology report final [facility] Normal 015 Comprehensive Internal diagnosis Narrative Medicine (08204) Comment: NEGATIVE FOR INTRAEPITHELIAL LESION AND MALIGNANCY.Satisfactory for evaluation. Endocervical and /or squamous metaplasticcells (endocervical component) are present.V73.8 1 ; Special screening examination, human papillomavirus [HPV]Sujey Shetty Manager Wound Care (ASCP) Source.............Cervical; EndocervicalLMP / Prev Treat...QRT=033894Tm. of containers..01 CYTYC Thin Pr ep VialPATIENT NOT FASTINGPERFORMED BY: WB [facility] Zxydicfhzn689 [place] [id number] BY: =G [facility] Vdqdagntgq301 [place] [id number] Information: [id number] PAPSMR Normal 02-19-2015 [facility] Internal Medicine (94693) Comment: The Pap smear is a screening [...] image guided system. Source.............Cervical; EndocervicalLMP / Prev Treat...NUD=801774Jt. of containers..01 CYTYC Thin Pr ep VialPATIENT NOT FASTINGPERFORMED BY: WB [facility] Rpnndqerpl919 [place] Duongco[facility] university hospital W [id number] BY: =G [facility] Eemslovmwp247 [place] [id number] Information: [id number] rapid strep test, office (32406) Ordered By: Janet Power on 2014-04-07 S. pyogenes Ag IA Ql Negative Normal 4 Comprehensive Internal (Unsp spec) Medicine (40045) matt culture-other (19644) Ordered By: Tube Splicer on 2014-04-07 Bacteria identified Final report Normal 014 Comprehensive Internal Respiratory culture Nom Medicine (16989) (Unsp spec) Comment: PATIENT NOT FASTINGPERFORMED BY: CB [facility] Kftjen6529 [facility] [id number] Information: SRC:THRT [id number] Bacteria identified RRF Normal 04-07-2014 Comprehensive Internal Respiratory culture Nom ([facility] Medicine (35360) spec) Comment: Routine respiratory farzaneh PATIENT NOT FASTINGPERFORMED BY: CB [facility] Mhfkmv3506 [facility] [id number] Information: SRC:ANDREW [id number] hpv automatic (29016) Ordered By: Tube Splicer on 2014-02-16 HPV Negative Normal 02-16-2014 Comprehen sive 16+18+31+33+35+39+45+51+52+56+58+59+68 Internal DNA Probe+sig amp Ql (Cvx) Medicine (47068) Comment: This high-risk HPV test dete cts thirteen high-risk types(16/18/31/33/35/39/45/5 1/52/56/58/59/68) without differentiation. . Source.............Cervical; EndocervicalLMP / Prev Treat...UXR=283666Qm. of containers..01 CYTYC Thin Pr ep VialPATIENT NOT FASTINGPERFORMED BY: WB [facility] Guvxecbxcs476 [place] PlazaProject [place] [id number] BY: =G [facility] Lcioqlenhc726 [place] PlazaCharl[place] [id number] Information: Skyla [id number] Microscopic observation Other . Normal 02-16-2014 Comprehensive Internal Medicine stain Nom (Unsp spec) (47539) Comment: Source.............Cervical; EndocervicalLMP / Prev Treat...ELN=790011Go. of containers..01 CYTYC Thin Pr ep VialPATIENT NOT FASTINGPERFORMED BY: WB [facility] Cfqaxxcdvb712 [place] PlazaProject [place] [id number] BY: =G [facility] Dyoelykbja134 [place] PlazaCharl[place] [id number] Information: Skyla [id number] Pathology report final [facility] Normal 014 Comprehensive Internal diagnosis Narrative Medicine (85135) Comment: NEGATIVE FOR INTRAEPITHELIAL LESION AND MALIGNANCY.CELLULAR CHANGES ASSOCIATED WITH INFLAMMATION ARE PRESENT.THIS SPECIMEN WAS RESCREENED PART OF OUR MANAGER MEDICAID PROGRAM.Satisfactory for evaluation. Endocervical and/or squamous metaplasticcells (endocervical component) are present.V72.31 ; Routine tool keeper ecological examinationHeather Abdalla, Manager Wound Care (ASCP)Marie Arevalo, Supervisory Manager Wound Care (ASCP) Source.............Cervical; EndocervicalLMP / Prev Treat...SGV=039138Ru. of containers..01 CYTYC Thin Pr ep VialPATIENT NOT FASTINGPERFORMED BY: WB [facility] Hdufhqdgsj794 [place] [id number] BY: =G [facility] Zunvhllrlt121 [place] [id number] Information: Skyla [id number] PAPSMR Normal 02-16-2014 [facility] Internal Medicine (94718) Comment: The Pap smear is a screening [...] image guided system. Source.............Cervical; EndocervicalLMP / Prev Treat...KSE=663958Me. of containers..01 CYTYC Thin Pr ep VialPATIENT NOT FASTINGPERFORMED BY: WB [facility] Zticedfwqt007 [place] [id number] BY: =G [facility] Cgevwzyrzi170 [place] [id number] Information: Skyla [id number] urine matt culture (ruben col count) (8708 6) Ordered By: Tube Splicer on 2013 Bacteria identified Cx Nom MUG Normal Comprehensive Internal Medicine (U) (13001) Comment: Mixed urogenital flora1,000 Colonies/mL PATIENT NOT FASTINGPERFORMED BY: CB [facility] Ixxddr0529 [address]Dublin [place] [id number] Information: SRC:UR [id number] Bacteria identified Cx Final report Normal Comprehensive Internal Nom (U) Medicine ( 57968) Comment: PATIENT NOT FASTINGPERFORMED BY: JONNY [facility] Yudrtc5333 [facility] [id number] Information: SRC:PATEL [id number] urinalysis, office (46430) on 2013-07-23 Bilirubin Ql (U) Small Normal 07-23-2013 Co mprehensive Internal Medicine ( 49154) Glucose Test strip Negative Normal 07-23-2013 Comprehensive Internal mass conc (U) Medici ne (60207) Hemoglobin Ql (U) Non Hemolyzed Normal 07-23-20 13 Comprehensive Internal Moderate Medicine ( 37227) Ketones Ql (U) Moderate Normal 07-23-2013 [facility] ( 36327) Comment: 40mg/dL Leukocyte esterase Test Negative Normal 2012 Comprehensive Internal strip Ql (U) Medicin e (10376) Nitrite Ql (U) Negative Normal 07-23-2013 [facility] ( 44259) pH (U) 6.0 1 Normal 07-23-2013 [facility] Internal Medicine ( 22021) Comment: 5.5 Protein Ql (U) Negative Normal 07-23-2013 [facility] ( 84265) Specific gravity Relative 1.025 1 Normal Comprehensive Internal Density (U) Medicine (03903) Comment: >=1.030 Urobilinogen mass/time (24H Normal Normal Comprehensive Internal U) Medicine ( 49487) pelvic (non ) Ordered By: Tube Splicer on 2013-07-04 See Note Normal 07-04-2013 [facility] Internal Medicine (02603) Comment: STUDY: ULTRASOUND OF THE FEM DAVID PELVIS - COMPLETE REASON FOR EXAM: Female, 27 years old. LMP: May. Rightlower quadrant pain. TECHNIQUE: Transabdominal TECHNICAL LUDIN LITY: Adequate. COMPARISON: None. FINDINGS:The uterus is anteverted and is in a midline position . The uterusmeasures8.5 cm x 5.2 cm x 3.0 cm. Normal uterine cervix. The e jjyqcjhkttkxggvrwv87 mm in thickness, and is hyperechoic. There [...] Signed:Melissa PantojaJuly 04, 2013 at 9:45:41 AM [id number] y Signed GP/GP If you are the referring physician and would like to consult with theradiologist who provided this interpretation, please contmack Benton M.D. at [phone]. If this radiologist is unavaila [facility], youwill be directed to another radiologist [...] Mcbride MD urine matt culture-ruben col count (89463) Ordered By: Tube Splicer on 2013-06-30 Bacteria identified Cx Final report Normal Comprehensive Internal Nom (U) Medicine ( 94692) Comment: PATIENT NOT FASTINGPERFORMED BY: MOG [facility] Ykleny8988 The Paper StoreFormerly [facility] [id number] Information: SRC:UR [id number] Bacteria identified Cx Nom MUG Normal Comprehensive Internal Medicine (U) (12293) Comment: Mixed urogenital flora10,000 -25,000 colony forming units per mL PATIENT NOT FASTINGPERFORMED BY: CB [facility] Pznhrz1507 [facility] [facility] [id number] Information: SRC:UR P52611 urinalysis, office (13638) Ordered By: Janet Power on 2013-06-30 Bilirubin Ql (U) Negative Normal 06-30-2013 Co mprehensive Internal Medicine ( 39770) Glucose Test strip Negative Normal 06-30-2013 Comprehensive Internal mass conc (U) Medici ne (46796) Hemoglobin Ql (U) Non Hemolyzed Trace Normal [facility] Internal Medicine ( 06166) Leukocyte esterase Negative Normal 06-30-2013 Comprehensive Internal Test strip Ql (U) Me dicine (56266) Nitrite Ql (U) Negative Normal 06-30-2013 Comp rehensive Internal Medicine ( 55380) pH (U) 5.0 1 Normal 06-30-2013 Comprehen sive Internal Medicine ( 02586) Protein Ql (U) Negative Normal 06-30-2013 Comp rehensive Internal Medicine ( 28660) Specific gravity 1.025 1 Normal 06-30-2013 Co mprehensive Internal Relative Density (U) Medicine (94778) Urobilinogen mass/time Normal Normal 013 Comprehensive Internal (24H U) Medicine ( 72011) tsh Ordered By: Syst em Rn Supplemental on 2013-06-30 Thyrotropin Qn 1.17 0.358-3.74 {uIU/mL} Normal 06-30-2013 [facility] Internal Medicine ( 40731) t4f Ordered By: Syst em Rn Supplemental on 2013-06-30 1.14 0.76-1.46 ng/dL Normal 06-30-2013 [facility] Internal Medicine (84965) sed Ordered By: Syst em Rn Supplemental on 2013-06-30 4 0-20 mm/h Normal 06-30-2013 [facility] Internal Medicine (40974) ft3 Ordered By: Syst em Rn Supplemental on 2013-06-30 2.9 2.18-3.98 pg/mL Normal 06-30-2013 [facility] Internal Medicine (33127) crp Ordered By: Syst em Rn Supplemental on 2013-06-30 CRP mass conc < 2.90 0.0-3.0 mg/L Normal 06-30-2013 [facility] Internal Medicine (73417) Comment: C-Reactive Protein (CRP) pro megha useful information for thediagnosis, therapy and monitoring of in flammatory processesand associated diseases. For the evaluation of Relative R iskfor Cardiovascular Disease, a High Sensitivity CRP (HSCRP)shoul d be ordered. cmp Ordered By: Syst em Rn Supplemental on 2013-06-30 Albumin mass conc 4.5 3.4-5.0 g/dL Normal 06-30-2013 [facility] ( 51966) ALT enzyme act/vol 23 12-78 U/L Normal 06-30-2013 [facility] Internal Medicine ( 10163) AST enzyme act/vol 17 15-37 U/L Normal 06-30-2013 [facility] Internal Medicine ( 70675) Calcium mass conc 9.1 8.5-10.1 mg/dL Normal 06-30-2013 C [facility] Internal Medicine ( 80656) Chloride molar conc 104 98-107 mmol/L Normal 06-30-2013 [facility] Internal Medicine ( 20808) CO2 molar conc 29.0 21.0-32.0 mmol/L Normal 06-30-2013 Comp [facility] Internal Medicine ( 68211) Creatinine mass conc 0.6 0.6-1.0 mg/dL Normal 3 [facility] Internal Medicine ( 20327) GFR/1.73 sq M 128 mL/min Normal 06-30-2013 Compr ehensive Internal predicted among [facility] (53483) non-blacks MDRD vol rate/area (S/P/Bld) Globulin mass conc 3.1 2.7-4.2 g/dL Normal 06-30-2013 Comprehensive Internal (S) Medicine ( 84434) Glucose mass conc 63 70-110 mg/dL Abnormal 06-30-2013 C omprehensive Internal Medicine ( 35755) Potassium molar conc 4.2 3.5-5.1 mmol/L Normal 3 [facility] Internal Medicine ( 01345) Protein mass conc 7.6 6.4-8.2 g/dL Normal 06-30-2013 C omprehensive Internal Medicine ( 76802) Sodium molar conc 140 136-145 mmol/L Normal 06-30-2013 C omprehensive Internal Medicine ( 68727) Urea nitrogen mass 9 7-18 mg/dL Normal 06-30-2013 Comprehensive Internal conc Medicine ( 42797) 7 5-15 1 Normal 06-30-2013 Comprehen sive Internal Medicine ( 45974) 155 mL/min Normal 06-30-2013 Comprehen [facility] Internal Medicine ( 67306) 70 50-136 U/L Normal 06-30-2013 Comprehen [facility] Internal Medicine ( 46809) 15.0 10-20 {RATIO} Normal 06-30-2013 Comprehen [facility] Internal Medicine ( 30276) 0.70 0.00-1.00 mg/dL Normal 06-30-2013 Comprehen [facility] Internal Medicine ( 97788) 1.5 0.9-2.4 {RATIO} Normal 06-30-2013 Comprehen [facility] Internal Medicine ( 06846) cbcmd Ordered By: Sy stem Rn Supplemental on 2013-06-30 Erythrocyte 13.6 11.6-14.6 % Normal 06-30-2013 Compreh ensive distribution width I nternal Medicine Ratio (RBC) (15966) Hematocrit Volume 38.6 37-47 % Normal 06-30-2013 C omprehensive Fraction (Bld) Inter nal Medicine (94245) Hemoglobin mass conc 14.0 12.0-15.0 g/dL Normal 3 Comprehensive (Bld) Internal M edicine (51060) MCH Entitic mass 30.7 27.0-32.0 pg Normal 06-30-2013 Co mprehensive (RBC) Internal M edicine (23809) MCHC mass conc (RBC) 36.3 32-36 g/dL Abnormal 3 Comprehensive Internal M edicine (97347) MCV Entitic volume 84.6 81-99 fL Normal 06-30-2013 Comprehensive (RBC) Internal M edicine (87594) Platelet mean volume 11.2 6.2-12.0 fL Normal 3 Comprehensive Entitic volume (Bld) Internal Medicine (60281) Platelets #/vol (Bld) 240 150-450 K/mm3 Normal 06-30-20 13 Comprehensive Internal M edicine (98931) RBC #/vol (Bld) 4.56 4.2-5.4 {M/mm3} Normal 06-30-2013 Com prehensive Internal M edicine (73093) WBC #/vol (Bld) 6.4 4.4-11.0 {k/mm3} Normal 06-30-2013 Com prehensive Internal M edicine (27272) 7.0 0-10 % Normal 06-30-2013 Comprehen [facility] Internal M edicine (19735) 0.9 0-5 % Normal 06-30-2013 Comprehen [facility] Internal M edicine (11176) 30.7 19-41 % Normal 06-30-2013 Comprehen [facility] Internal M edicine (70765) 0.00 0.0-0.9 % Normal 06-30-2013 Comprehen [facility] Internal M edicine (51857) Comment: IG% - Immature Granulocytes (promyelocytes, myelocytes,metamyelocytes) >1.0% indicates that a LEFT SHIFT ispresent. 0.2 0-1 % Normal 06-30-2013 Comprehen [facility] Internal Medicine (76063) 41.7 35.1-43.9 fL Normal 06-30-2013 Comprehen [facility] Internal Medicine (39767) 61.2 47-70 % Normal 06-30-2013 Comprehen [facility] Internal Medicine (75286) 3.9 2.0-7.7 3/uL Normal 06-30-2013 Comprehen [facility] Internal Medicine (75931) abdomen/pelvis with contrast Ordered By: Tube Splicer on 2013-06-30 See Note Normal 06-30-2013 [facility] Internal Medicine (76383) Comment: STUDY: CT ABDOMEN AND PELVIS WITH [...] Signed:Melissa PantojaJune 30, 2013 at 3:40:31 PM [id number] y Signed GP/GP If you are the referring physician and would like to consult with theradiologist who provided this interpretation, please contmack Benton M.D. at [phone]. If this radiologist is unavaila ble, youwill [...] Mcbride MD spine lumbar (routine) Ordered By: Tube Splicer on 2013-04-04 See Note Normal 04-04-2013 [facility] Internal Medicine (66411) Comment: PROCEDURE: MRI LUMBAR SPINE WITHOUT CONTRAST [...] Mckinney M.D.April 04, 2013 at 7:56:09 PM [phone] Estephania d AM/AM If you are the referring physician and would like to consult with t heradiologist who provided this interpretation, please contact Melissa Rg at . If this radiologist is unavailable, you will bedire cted to another radiologist to assist. If you are a patient with a questio n regarding this report, pleasecontactyour referring physician directly . Professional Interpretation Provided By: SCVNGR, Phone , These documents contain legally protected [...] by: Raegan Mckinney MD vitamin d hydroxy (93151) Ordered By: Tube Splicer on 2012-10-25 25-Hydroxyvitamin 23.5 30.0-100.0 ng/mL Abnormal 10-25-2012 [facility] D2+25-Hydroxyvitamin D3 Internal Medicine mass conc (91801) Comment: Vitamin D deficiency has bee n defined by the [place] and an Endocrine Society practice g uideline as alevel of serum 25-OH vitamin D less than 20 ng/mL (1,2).The Endo crine Society went on to further define vitamin Dinsufficiency as a level be tween 21 and 29 ng/mL (2).1. IOM ([place]). 2010. Dietary ref erence intakes for calcium and D. [place]: The National Academies Press .2. Ezra MF, Griselda NC, Asad FELDMAN, et al. Evaluation, treatment , and prevention of vitamin D deficiency: an Endocrine Society clinical p nimesh guideline. JCEM. 2010; 96(7):1911-30. PATIENT NOT FASTINGPERFORMED BY: CB [facility] Wizuoq1135 [facility] [id number] tsh (94861) Ordered By: Tube Splicer on 2012-10-25 Thyrotropin Qn 1.560 0.450-4.500 {uIU/mL} Normal 10-25-2012 [facility] ( 48625) Comment: PATIENT NOT FASTINGPERFORMED BY: CB [facility] Pocucm8900 [address] [facility] [id number] Information: [id number] urine matt culture-identificatn (43104) Ordered By: Tube Splicer on 2010-08-10 Bacteria identified Cx Nom MUG Normal [facility] Medicine (U) (05935) Comment: Mixed urogenital farzaneh PATIENT NOT FASTINGPERFORMED BY: JONNY [facility] Masvdw8672 [facility] [id number] Information: [id number] Bacteria identified Cx Final report Normal 07-23 [facility] Internal Nom (U) Medicine ( 52980) Comment: PATIENT NOT FASTINGPERFORMED BY: JONNY [facility] Tayzsm4167 [facility] [id number] Information: [id number] urinalysis, office (69108) on 2010-08-10 Bilirubin Ql (U) Small Normal 08-10-2010 [facility] m[facility] Internal Medicine ( 71033) Glucose Test strip mass Negative Normal 2009 [facility] Internal conc (U) Medicine ( 46626) Hemoglobin Ql (U) Negative Normal 08-10-2010 C omprehensive Internal Medicine ( 97152) Ketones Ql (U) Negative Normal 08-10-2010 Comp rehensive Internal Medicine ( 16026) Leukocyte esterase Test Trace Normal 2009 [facility] Internal strip Ql (U) Medicin e (96045) Nitrite Ql (U) Negative Normal 08-10-2010 Comp rehensive Internal Medicine ( 74387) pH (U) 8.5 1 Normal 08-10-2010 Comprehen sive Internal Medicine ( 43897) Protein Ql (U) 100 mg/dL Normal 08-10-2010 Comp rehensive Internal Medicine ( 62257) Specific gravity Relative 1.015 1 Normal 07-23 [facility] Internal Density (U) Medicine (31661) Urobilinogen mass/time 4 mg/dL Normal 010 [facility] Internal (24H U) Medicine ( 94507) thin prep pap (92363) Ordered By: Tube Splicer on 2010-08-10 Microscopic observation Other . Normal 08-10-2010 [facility] Internal Medicine stain Nom (Unsp spec) (68437) Comment: Source.............Cervical; EndocervicalNo. of containers..01 CYTYC Thin Prep VialPERFORMED BY: LUIS EDUARDO Quesada [facility] Smrmzlhiii744 [facility] [id number] BY: =G [facility] Dwwzwydggh545 [facility] [id number] Information: [id number] Pathology report final SPRCS Abnormal 010 [facility] Internal diagnosis [facility] (80202) Comment: EPITHELIAL CELL ABNORMALITY. LOW-GRADE SQUAMOUS INTRAEPITHELIAL LESION (LGSIL); MILD DYSPLASIA ISPR ESENT.Satisfactory for evaluation. Endocervical and/or squamous metaplasticc ells (endocervical component) are present.V72.31 ; Routine gynecological exam [facility], Manager Wound Care (ASCP)Mary Barbour MD, [facility] hologist Source.............Cervical; EndocervicalNo. of containers..01 CYTYC Thin Prep VialPERFORMED BY: WB Sangita [employer] Eagefsfsca[address] PlazaCharl[place] [id number] BY: =G [facility] Lqumzzkrlm412 [address] PlazaBoston Home For Incurablesrleston [place] [id number] Information: [id number] Protein mass conc [facility] Normal 08-10-2010 [facility] Internal Medicine (20013) Comment: 795.03The Pap smear is a scr [...] CYTYC Thin Prep VialPERFORMED BY: WB Sangita dax Asparnamartita Dkyppxtran742 [address] PlazaCharl[place] [id number] BY: =G [facility] Xjhyeqaxda231 [address] Plaza[place] [id number] Information: [id number] SPRCS Normal 08-10-2010 [facility] Internal Medicine (14078) Comment: 795.03The Pap smear is a scr [...] containers..01 CYTYC Thin Prep VialPERFORMED BY: Sangita dax Asparnamartita MooneyEagfypgsga960 [facility] [place], [facility] W [id number] BY: =G [facility] Xiweauyith109 [facility] W [id number] Information: [id number] hpv, high-risk Order ed By: Tube Splicer on 2010-08-10 HPV Positive Abnormal 08-10-2010 [facility] 16+18+31+33+35+39+45+51+52+56+58+59+68 Internal DNA Probe+sig amp Ql (Cvx) Medicine (45723) Comment: This high-risk HPV test dete cts thirteen high-risk types(16/18/31/33/35/39/45/5 1/52/56/58/59/68) without differentiation. . Source.............Cervical; EndocervicalNo. of containers..01 CYTYC Thin Prep VialPERFORMED BY: [facility] dax Asparnamartita MooneyMxmrgvxgtl808 [facility] W [id number] BY: =G [facility] Zxbonhiqxh515 [facility] W [id number] hcg quant. Ordered B y: Tube Splicer on 2010-05-09 < 1 Normal 05-09-2010 [facility] Internal Medicine (56375) l/s spine,min 4 views (mt) Ordered By: Tube Splicer on 2009-07-21 See Note Normal 07-21-2009 [facility] Internal Medicine (80428) Comment: Exam Number: [id number] CLINI KENAN:23-year-old male with low back pain [...] spine. Reported By: FRANCHESKA JAMES Dr. calcifediol (92905) Ordered By: Brandee Del Rio on 2009-07-09 Calcitriol mass conc 32.1 32.0-100.0 ng/mL Normal 07-09-20 09 [facility] Medicine ( 88361) Comment: Recent studies consider the lower limit of 32.0 ng/mL to be athreshold for optimal health.[place] MEEHAN. J Nutr. 2004;135(2):317-22. Draw around Jul 06 2009; DAVID MORSE NOT FASTINGClinical Information: ADD 203906, [id number] PERFORMED BY: Access[employer]70 The Paper StoreFormerly [facility] [id number] vitamin b-12 (cyanocobalamin) (54380) Ordered By: Brandee Del Rio on 2009-03-29 Cobalamin (Vitamin B12) 430 211-911 pg/mL Normal 2008 [facility] Internal mass conc Medicine ( 14728) Comment: PATIENT NOT FASTINGPERFORMED BY: MOG LabProcarta Biosystemsrp Tbzfjg6131 [facility] [facility] [place] [id number] tsh (17885) Ordered By: Brandee Del Rio on 2009-03-29 Thyrotropin Qn 2.130 0.450-4.500 {uIU/mL} Normal 03-29-2009 [facility] Internal Medicine ( 17682) Comment: PATIENT NOT FASTINGPERFORMED BY: MOG LabProcarta Biosystemsrp Nyutpk6466 [address] RoadDuin [place] [id number] sed rate erythrocyte (20668) Ordered By: Brandee Del Rio on 2009-03-29 ESR Velocity (Bld) 2 0-20 mm/h Normal 03-29-2009 [facility] Medicine (70804) Comment: PATIENT NOT FASTINGPERFORMED BY: JONNY [facility] Sfbcdr3519 [facility] [id number] rheumatoid factor-quant (81247) Ordered By: Brandee Del Rio on 2009-03-29 Rheumatoid factor Qn 6.4 0.0-13.9 {IU/mL} Normal 9 [facility] Medicine ( 68761) Comment: PATIENT NOT FASTINGPERFORMED BY: [facility] Sfqktv9637 [facility] [id number] metabolic panel, comprehensive (21170) Ordered By: Brandee Del Rio on 2009-03-29 Albumin mass conc 5.2 3.5-5.5 g/dL Normal 03-29-2009 C omprehensive Internal Medicine (17929) Comment: PATIENT NOT FASTINGClinical Information: ADD DRAW FEE 695208,[id number] PERFORMED BY: JONNY [facility] Dub iwy2717 [facility] [id number] Albumin/Globulin mass ratio 2.0 1.1-2.5 1 Normal [facility] Internal Medicine ( 31665) Comment: PATIENT NOT FASTINGClinical Information: ADD DRAW FEE 370549,[id number] PERFORMED BY: JONNY [facility] Dub [id number] [facility] [id number] ALP enzyme act/vol 68 25-150 [iU]/L Normal 03-29-2009 [facility] Medicine (10200) Comment: PATIENT NOT FASTINGClinical Information: ADD DRAW FEE 809789,[id number] PERFORMED BY: [facility] Dub [id number] [facility] [id number] ALT enzyme act/vol 14 0-40 [iU]/L Normal 03-29-2009 [facility] Medicine (89227) Comment: PATIENT NOT FASTINGClinical Information: ADD DRAW FEE 055035,[id number] PERFORMED BY: [facility] Dub [id number] [facility] [id number] AST enzyme act/vol 18 0-40 [iU]/L Normal 03-29-2009 [facility] Medicine (05696) Comment: PATIENT NOT FASTINGClinical Information: ADD DRAW FEE 327460,[id number] PERFORMED BY: CB [facility] Dub [id number] [facility] [facility] [place] [id number] Bilirubin mass conc 1.2 0.1-1.2 mg/dL Normal 03-29-2009 [facility] Internal Medicine ( 89579) Comment: PATIENT NOT FASTINGClinical Information: ADD DRAW FEE 571904,[id number] PERFORMED BY: CB [facility] Dub [id number] [facility] [id number] Calcium mass conc 10.3 8.5-10.6 mg/dL Normal 03-29-2009 [facility] Internal Medicine ( 55009) Comment: PATIENT NOT FASTINGClinical Information: ADD DRAW FEE 033218,[id number] PERFORMED BY: CB [facility] Dub [id number] [facility] [id number] Chloride molar conc 104 97-108 mmol/L Normal 03-29-2009 [facility] Internal Medicine ( 82387) Comment: PATIENT NOT FASTINGClinical Information: ADD DRAW FEE 929113,[id number] PERFORMED BY: CB [facility] Dub [id number] [facility] [id number] CO2 molar conc 21 20-32 mmol/L Normal 03-29-2009 [facility] Internal Medicine (54424) Comment: PATIENT NOT FASTINGClinical Information: ADD DRAW FEE 399238,[id number] PERFORMED BY: CB [facility] Dub [id number] [facility] [id number] Creatinine mass conc 0.78 0.57-1.00 mg/dL Normal 9 [facility] Internal Medicine ( 84165) Comment: PATIENT NOT FASTINGClinical Information: ADD DRAW FEE 349686,[id number] PERFORMED BY: CB [facility] Dub [id number] [facility] [id number] GFR/1.73 sq M >59 mL/min/{1.73_m2} Normal 9 [facility] Internal predicted among [facility] (68417) blacks MDRD vol rate/area (S/P/Bld) Comment: Note: Persistent reduction f or 3 months or more in an eGFR<60 mL/min/1.73 m2 defines CKD. Patients with e GFR values>/=60 mL/min/1.73 m2 may also have CKD if evidence of persistentpro teinuria is present. Additional information may be found [email or web address]. PATIENT NOT FASTINGClinical Information: ADD DRAW FEE 204222,[id number] PERFORMED BY: CB [facility] Dub [id number] [address] [place] [id number] GFR/1.73 sq >59 mL/min/{1.73_m2} Normal 03-29-2009 [facility] Internal M.predicted MDRD Med formerly [facility] (40425) (S/P/Bld) [Vol rate/Area] Comment: PATIENT NOT FASTINGClinical Information: ADD DRAW FEE 405773,[id number] PERFORMED BY: CB [facility] Dub [id number] [address] [place] [id number] GFR/1.73 sq >59 mL/min/{1.73_m2} Normal 03-29-2009 [facility] Internal M.predicted MDRD vol [facility] (42947) rate/area Comment: PATIENT NOT FASTINGClinical Information: ADD DRAW FEE 584036,[id number] PERFORMED BY: CB [facility] Dub [id number] [facility] [facility] [place] [id number] Globulin mass conc (S) 2.6 1.5-4.5 g/dL Normal 009 [facility] Internal Medicine ( 37452) Comment: PATIENT NOT FASTINGClinical Information: ADD DRAW FEE 242823,[id number] PERFORMED BY: CB [facility] Dub [id number] [facility] [facility] [place] [id number] Glucose mass conc 91 65-99 mg/dL Normal 03-29-2009 [facility] Internal [facility] (76178) Comment: PATIENT NOT FASTINGClinical Information: ADD DRAW FEE 856572,[id number] PERFORMED BY: CB [facility] Dub [id number] [facility] [facility] [place] [id number] Potassium molar conc 4.3 3.5-5.2 mmol/L Normal 9 [facility] Internal Medicine ( 76805) Comment: PATIENT NOT FASTINGClinical Information: ADD DRAW FEE 518154,[id number] PERFORMED BY: CB [facility] Dub [id number] [facility] [id number] Protein mass conc 7.8 6.0-8.5 g/dL Normal 03-29-2009 [facility] Internal Medicine (58730) Comment: PATIENT NOT FASTINGClinical Information: ADD DRAW FEE 081866,[id number] PERFORMED BY: CB [facility] Dub [id number] [facility] [id number] Sodium molar conc 141 135-145 mmol/L Normal 03-29-2009 [facility] Internal Medicine ( 04388) Comment: PATIENT NOT FASTINGClinical Information: ADD DRAW FEE 869479,[id number] PERFORMED BY: CB [facility] Dub [id number] [address] [facility] [place] [id number] Urea nitrogen mass conc 11 5-26 mg/dL Normal 2008 [facility] Internal Medicine ( 87176) Comment: PATIENT NOT FASTINGClinical Information: ADD DRAW FEE 535996,[id number] PERFORMED BY: CB [facility] Dub [id number] [facility] [id number] Urea nitrogen/Creatinine mass 14 8-27 1 Normal 03-29-2009 [facility] Internal ratio Medicine ( 90726) Comment: PATIENT NOT FASTINGClinical Information: ADD DRAW FEE 406006,[id number] PERFORMED BY: CB [facility] Dub [id number] [facility] [id number] lqd pap [id number] Order ed By: Tube Splicer on 2009-03-29 . Normal 03-29-2009 [facility] Internal Medicine (88163) Comment: CYTOLOGY INFORMATION:- CLINI KENAN INFORMATION: - DATE LMP/MENOPAUSE: 03/17/09 LMP- COLLECTION VIAL: Thin P rep Vial- RADIO NEWS WRITER SOURCE: CERVICAL/ENDOCERVICAL- COLLECTION TECHNIQUE: BRUSH/ SPATULA Comment Normal 03-29-2009 [facility] Internal Medicine (98636) Comment: Satisfactory for evaluation. Endocervical and/or squamous metaplasticcells (endocervical component) are present. CYTOLOGY INFORMATION:- CLINI KENAN INFORMATION: - DATE LMP/MENOPAUSE: 03/17/09 LMP- COLLECTION VIAL: Thin P rep Vial- RADIO NEWS WRITER SOURCE: CERVICAL/ENDOCERVICAL- COLLECTION TECHNIQUE: BRUSH/ SPATULA [place] [...] HPV testing was performed . .Performed At: [address], [place] [id number] 8 NEGATIVE FOR INTRAEPITHELIAL LESION AND MALIGNANCY.FUNGAL ORGANISMS MORPHOLOGICALLY CONSISTENT W [facility] ANDREE SPECIES AREPRESENT. folate (94224) Order ed By: Brandee Del Rio on 2009-03-29 Folate mass conc 7.4 ng/mL Normal 03-29-2009 [facility] m[facility] Internal Medicine (39067) Comment: Indeterminate: 3.4 - 5.4 Def icient: <3.4 PATIENT NOT FASTINGPERFORMED BY: CB [facility] Ptoprw7805 [address] [place] [id number] cbc (auto) (92365) O rdered By: Brandee Del Rio on 2009-03-29 Erythrocyte distribution 14.5 11.7-15.0 % Normal 03-29 [facility] Internal width Ratio (RBC) Me dicine (19427) Comment: PATIENT NOT FASTINGPERFORMED BY: CB [facility] Lygupz0940 [address] GoSportyblin [place] [id number] Hematocrit Volume 42.5 34.0-44.0 % Normal 03-29-2009 C omprehensive Internal Fraction (Bld) Medic ine (67863) Comment: PATIENT NOT FASTINGPERFORMED BY: CB [facility] Cxdiyp2115 [address]Dublin [place] [id number] Hemoglobin mass conc 14.9 11.5-15.0 g/dL Normal 9 [facility] Internal (Bld) Medicine ( 39684) Comment: PATIENT NOT FASTINGPERFORMED BY: CB [facility] Ftjpjy1475 [address] GeliyooD[place] [id number] MCH Entitic mass (RBC) 31.4 27.0-34.0 pg Normal 009 [facility] Internal Medicine ( 54662) Comment: PATIENT NOT FASTINGPERFORMED BY: CB [facility] Rxwhnj6439 [address] GeliyooD[place] [id number] MCHC mass conc (RBC) 35.1 32.0-36.0 g/dL Normal 9 [facility] Internal Medicine ( 03492) Comment: PATIENT NOT FASTINGPERFORMED BY: JONNY [facility] Nidvfp5332 [address] [place] [id number] MCV Entitic volume (RBC) 90 80-98 fL Normal 03-29 [facility] Internal Medicine ( 73847) Comment: PATIENT NOT FASTINGPERFORMED BY: CB [facility] Asxiga8745 [address] [place] [id number] Platelets #/vol 262 140-415 {x10E3/uL} Normal 03-29-2009 [facility] ( 82693) Comment: Please note reference inte rval change PATIENT NOT FASTINGPERFORMED BY: CB [facility] Gqbkdy0413 [facility] [id number] RBC #/vol (Bld) 4.75 3.80-5.10 {x10E6/uL} Normal 03-29-2009 Co [facility] Internal Medicine ( 06414) Comment: PATIENT NOT FASTINGPERFORMED BY: CB [facility] Ijqsmj6130 [address] [facility] [place] [id number] WBC #/vol (Bld) 4.9 4.0-10.5 {x10E3/uL} Normal 03-29-2009 [facility] Internal Medicine ( 77601) Comment: PATIENT NOT FASTINGPERFORMED BY: CB [facility] Ajnzbz8088 [facility] [id number] calcifediol (67508) Ordered By: Brandee Del Rio on 2009-03-29 Calcitriol mass conc 22.8 32.0-100.0 ng/mL Abnormal 03-29-20 09 [facility] Internal Medicine ( 81264) Comment: Recent studies consider the lower limit of 32.0 ng/mL to be athreshold for optimal health.[place] MEEHAN. J Nutr. 2005 Nov;135(2):317-22. PATIENT NOT FASTINGPERFORMED BY: CB [facility] Ifvusp8716 [facility] [id number] c-reactive protein (45977) Ordered By: Brandee Del Rio on 2009-03-29 CRP mass conc 0.4 0.0-4.9 mg/L Normal 03-29-2009 Compr ehensive Internal Medicine (14284) Comment: PATIENT NOT FASTINGPERFORMED BY: JONNY [facility] Svyhkg1909 [address] [place] [id number] francine (antinuclear antibody) (64179) Ordered By: Brandee Del Rio on 2009-03-29 Nuclear Ab Ql (S) Negative Normal 03-29-2009 C omprehensive Internal Medicine (29762) Comment: PATIENT NOT FASTINGPERFORMED BY: JONNY [facility] Tecakn5112 [address] [place] [id number] urine culture,comprehensive Ordered By: Tube Splicer on 2009-03-24 Bacteria identified Cx Nom NG36 Normal [facility] Internal (U) Medicine ( 44765) Comment: No growth in 36 - 48 hours. PATIENT NOT FASTINGClinical Information: SRC:UR ADD [id number] PERFORMED BY: JONNY [facility] Nxusdv4089 [address] adDubsouthwest [facility] [place] [id number] Bacteria identified Cx Final report Normal [facility] Internal Nom (U) Medicine ( 67413) Comment: PATIENT NOT FASTINGClinical Information: SRC:UR ADD [id number] PERFORMED BY: JONNY [facility] Cljvlu3201 [address] adDubYork Hospital [id number] urinalysis, office (21901) on 2009-03-24 Bilirubin Ql (U) Negative Normal 03-24-2009 [facility] m[facility] Internal Medicine ( 02730) Glucose Test strip mass Negative Normal 2008 [facility] Internal conc (U) Medicine ( 76694) Hemoglobin Ql (U) Negative Normal 03-24-2009 C o[facility] Internal Medicine ( 13646) Ketones Ql (U) Negative Normal 03-24-2009 Comp rehensive Internal Medicine ( 49209) Leukocyte esterase Test Negative Normal 2008 [facility] Internal strip Ql (U) Medicin e (88080) Nitrite Ql (U) Negative Normal 03-24-2009 Comp rehensive Internal Medicine ( 80016) pH (U) 7.0 1 Normal 03-24-2009 Comprehen sive Internal Medicine ( 26833) Protein Ql (U) Negative Normal 03-24-2009 Comp rehensive Internal Medicine ( 69544) Specific gravity Relative 1.015 1 Normal 06-0 [facility] Internal Density (U) Medicine (33308) Urobilinogen mass/time (24H Normal Normal [facility] Internal U) Medicine ( 90936) urinalysis, office (31419) on 2008-08-06 Bilirubin Ql (U) Small Normal 08-06-2008 [facility] m[facility] Internal Medicine (00360) Comment: normal Glucose Test strip mass Negative Normal 2007 [facility] Internal conc (U) Medicine ( 57111) Comment: normal Hemoglobin Ql (U) Negative Normal 08-06-2008 C [facility] Internal Medicine (18382) Comment: normal Ketones Ql (U) Small Normal 08-06-2008 [facility] (85256) Comment: normal Leukocyte esterase Test Negative Normal 2007 [facility] Internal strip Ql (U) Medicin e (85609) Comment: aw normal Nitrite Ql (U) Negative Normal 08-06-2008 [facility] (64991) Comment: normal pH (U) 6.0 1 Normal 08-06-2008 [facility] Internal Medicine (32004) Comment: normal Protein Ql (U) 30 mg/dL Normal 08-06-2008 [facility] (13647) Comment: normal Specific gravity Relative 1.025 1 Normal 07-22 [facility] Internal Medicine Density (U) (05978) Comment: normal Urobilinogen mass/time (24H Normal Normal [facility] Internal U) Medicine ( 13837) Comment: normal lipid panel (74140) Ordered By: Henrietta Collazo on 2008-07-02 Cholesterol in HDL mass 52 40-59 mg/dL Normal 2007 [facility] Internal conc Medicine ( 69081) Comment: PATIENT WAS FASTINGClinical Information: ADD DRAW FEE 618089 ADD J 99661 PERFORMED BY: CB [facility] Dub [id number] [facility] [id number] Cholesterol in LDL mass 95 0-99 mg/dL Normal 2007 [facility] Internal conc Medicine ( 87861) Comment: PATIENT WAS FASTINGClinical Information: ADD DRAW FEE 551190 ADD J 18584 PERFORMED BY: CB [facility] Dub [id number] [facility] [id number] Cholesterol in 1.8 0.0-3.2 {ratio_units} Normal 07-02-2008 Comprehensive LDL/Cholesterol in HDL Internal Medicine mass ratio (28831) Comment: PATIENT WAS FASTINGClinical Information: ADD DRAW FEE 916205 ADD J 83853 PERFORMED BY: CB [facility] Dub sor4127 [address] RoadFormerly [facility]in [place] [id number] Cholesterol in VLDL mass 21 5-40 mg/dL Normal 07-02 [facility] Internal conc Medicine ( 04973) Comment: PATIENT WAS FASTINGClinical Information: ADD DRAW FEE 778499 ADD J 57856 PERFORMED BY: CB [facility] Dub gqj5200 [address] RoadFormerly [facility]in [place] [id number] Cholesterol mass conc 168 100-199 mg/dL Normal 07-02-20 08 [facility] Internal Medicine ( 94381) Comment: PATIENT WAS FASTINGClinical Information: ADD DRAW FEE 643914 ADD J 26284 PERFORMED BY: CB [facility] Dub [id number] [address] [facility] [place] [id number] Triglyceride mass conc 107 0-149 mg/dL Normal 008 [facility] Internal Medicine ( 62968) Comment: PATIENT WAS FASTINGClinical Information: ADD DRAW FEE 745834 ADD J 14500 PERFORMED BY: CB [facility] Dub [id number] [facility] [id number] Vital Signs Vital Sign Description Value / Unit Date Location The following section is limited to 5 en tries per type and includes entries from the following time range: 20190811 - 9. BMI (Body Mass Index) 25.06 kg/m2 06-30-2020 [facility] (53926) BMI (Body Mass Index) 25.06 kg/m2 06-11-2020 [facility] (08463) BMI (Body Mass Index) 25.06 kg/m2 06-04-2020 [facility] (40396) BMI (Body Mass Index) 24.44 kg/m2 04-29-2020 [facility] (78185) BMI (Body Mass Index) 24.59 kg/m2 09-02-2019 [facility] (05520) Body Temperature 96.8 [degF] 06-30-2020 [facility] (19707) Body Temperature 96.8 [degF] 06-11-2020 [facility] (44191) Body Temperature 97.1 [degF] 04-29-2020 [facility] (69341) Body Temperature 97.1 [degF] 09-02-2019 [facility] (76047) Body Temperature 97.3 [degF] 08-11-2019 [facility] (43944) Body weight 72.59 kg 06-30-2020 [facility] (35798) Body weight 72.59 kg 06-11-2020 [facility] (94222) Body weight 72.59 kg 06-04-2020 [facility] (55349) Body weight 70.77 kg 04-29-2020 [facility] (52987) Body weight 71.23 kg 09-02-2019 [facility] (10159) BP Diastolic 72 mm[Hg] 06-30-2020 [facility] (81022) BP Diastolic 72 mm[Hg] 06-11-2020 [facility] (12922) BP Diastolic 80 mm[Hg] 04-29-2020 [facility] (96410) BP Diastolic 70 mm[Hg] 09-02-2019 [facility] (51632) BP Diastolic 68 mm[Hg] 08-11-2019 [facility] (99098) BP Systolic 118 mm[Hg] 06-30-2020 [facility] (54291) BP Systolic 120 mm[Hg] 06-11-2020 [facility] (77456) BP Systolic 111 mm[Hg] 04-29-2020 [facility] (99046) BP Systolic 112 mm[Hg] 09-02-2019 [facility] (34337) BP Systolic 112 mm[Hg] 08-11-2019 [facility] (08865) BSA (Body Surface Area) 1.84 m2 06-30-2020 [facility] (11253) BSA (Body Surface Area) 1.84 m2 06-11-2020 [facility] (11991) BSA (Body Surface Area) 1.84 m2 06-04-2020 [facility] (53768) BSA (Body Surface Area) 1.82 m2 04-29-2020 [facility] (49493) BSA (Body Surface Area) 1.82 m2 09-02-2019 [facility] (02554) Head Circumference 0 cm 07-26-2009 [facility] (13426) Head Circumference 0 cm 07-21-2009 [facility] (94912) Head Circumference 0 cm 07-16-2009 [facility] (19584) Head Circumference 0 cm 07-09-2009 [facility] (08723) Head Circumference 0 cm 04-05-2009 [facility] (46598) Height 170.18 cm 06-30-2020 [facility] (62334) Height 170.18 cm 06-11-2020 [facility] (25509) Height 170.18 cm 06-04-2020 [facility] (91634) Height 170.18 cm 04-29-2020 [facility] (87840) Height 170.18 cm 09-02-2019 [facility] (27765) Pulse (Heart Rate) 62 /min 06-30-2020 [facility] (00502) Pulse (Heart Rate) 61 /min 06-11-2020 [facility] (30612) Pulse (Heart Rate) 74 /min 04-29-2020 [facility] (81147) Pulse (Heart Rate) 79 /min 09-02-2019 [facility] (08865) Pulse (Heart Rate) 91 /min 08-11-2019 [facility] (80049) Pulse Oximetry 96 % 06-30-2020 [facility] (04201) Pulse Oximetry 98 % 06-11-2020 [facility] (34380) Pulse Oximetry 93 % 04-29-2020 [facility] (91053) Pulse Oximetry 98 % 09-02-2019 [facility] (48489) Pulse Oximetry 99 % 08-11-2019 [facility] (51061) Respiratory Rate 16 /min 06-30-2020 [facility] (22228) Respiratory Rate 16 /min 06-11-2020 [facility] (77972) Respiratory Rate 16 /min 04-29-2020 [facility] (71750) Respiratory Rate 16 /min 09-02-2019 [facility] (53106) Respiratory Rate 17 /min 08-11-2019 [facility] (92188) Encounters Date Type Reason Provider Location 09-01-2019 [...] Comprehens essence - visit 10 minutes [facility] 06-11-2020 08-01-2019 Office outpatient BMI 22.0-22.9, [...] Comprehens essence - visit 15 minutes [facility] 04-07-2014 04-05-2009 Office outpatient Comprehens essence - visit 15 minutes [facility] 04-05-2009 10-26-2014 Office outpatient Comprehens essence - visit 25 minutes [facility] 10-26-2014 08-06-2008 Office outpatient Comprehens essence - visit 25 minutes [facility] 08-06-2008 05-22-2007 Office outpatient Comprehens essence - visit 25 minutes Internal [facility] 05-22-2007 01-01-2019 Patient encounter Henrietta Collazo Compreh ensive procedure Henrietta Collazo Internal Med (09496) Henrietta Collazo 02-13-2014 Patient encounter Comprehens essence [...] Henrietta Collazo Comprehensi ve Internal 06-11-2020 Medicine (70255) Emergency Department 03-16-2020 - Comprehensi ve Internal Summary 03-23-2020 Medicine (69239) Discharge Instruction 03-12-2020 - Comprehens essence Internal 03-12-2020 Medicine (59987) Emergency Department 03-12-2020 - Comprehensi ve Internal Summary 03-18-2020 Medicine (53047) Venous Duplex Upper 01-01-2019 - Brandee Del Rio Comprehensiv e Internal Extremity 01-01-2019 Medicine (97852) Chest PA and Lateral 04-22-2018 - Mili Castro Comprehensi ve Internal 04-22-2018 Medicine (88107) Emergency Department 07-14-2017 - Comprehensi ve Internal Summary 07-14-2017 Medicine (18322) Cerv Spine 2 or 3 Views 07-14-2017 - Comprehe nsive Internal 07-14-2017 Medicine (62042) Stress Report 04-20-2017 - [facility] 04-20-2017 Medicine (62372) L/S Spine Bending 11-13-2014 - [facility] Flex/Ext 11-14-2014 Medicine (74039) Spine Lumbar (Routine) 11-13-2014 - Comprehen sive Internal 11-13-2014 Medicine (02431) Plan of Treatment Plan Description Date Location Procedure Education Eprescribed prescriptions 06-30-2020 [facility] (G8553) Medicine (97408) NMR Profile (41694) NMR Profile (72919) 06-30-2020 [facility] (74481) Procedure Education Eprescribed prescriptions 06-11-2020 [facility] (G8553) Medicine (84621) Provider Instructions for Follow up in 2 -3weeks- 06-11-2020 [facility] Treatment possible shoulder Medicine (5167 1) injection Procedure Education Eprescribed prescriptions 06-04-2020 [facility] (G8553) Medicine (13787) Provider Instructions for Reviewed [facility] (20215) TSH (88979) TSH (95315) 04-29-2020 [facility] (03802) Procedure Education [facility]-29-[facility] (34609) Provider Instructions for Follow up in 4 weeks 04-29-2020 [facility] Treatment Medicine (09388) Procedure Education Eprescribed prescriptions 09-02-2019 [facility]G8553[facility] Medicine (54526) Provider Instructions for no information 09-02-2019 [facility] (88694) TSH (THYROID STIMULATING TSH (THYROID STIMULATING 09-01-2019 [facility] HORMONE) (24586) HORMONE) (14454) Medicine (3120 1) CBC & PLATELETS (AUTO) CBC & PLATELETS (AUTO) 09-01-2019 [facility] (35572) (31649) Medicine (92329) GLUCOSE (05446) GLUCOSE (89038) 09-01-2019 [facility] (11323) LIPID PANEL (09980) LIPID PANEL (47765) 09-01-2019 Comprehe nsive [facility] Medicine (73540) Procedure Education Eprescribed prescriptions 08-11-2019 [facility] (G8553[facility] Medicine (55570) Provider Instructions for no information 08-11-2019 [facility] Medicine (00102) Sputum Culture (84175) Sputum Culture (77142) 08-11-2019 [facility] (82422) Procedure Education Eprescribed prescriptions 01-01-2019 [facility] (G8553) Medicine (53155) Patient Education Sore Throat *: upper 07-02-2018 Comprehen sive Internal respiratory infection Medicine ( 31913) Procedure Education [facility]pres[facility] prescriptions [facility]-02-[facility] (54103) Provider Instructions for Follow up if no 07-02-2018 Compre [facility] Internal Treatment improvement or if Medicine (4469 1) symptoms worsen Patient Education Sinusitis *: sinus 04-22-2018 Comprehensi ve Internal infection Medicine (41233) Procedure Education Eprescribed prescriptions 04-22-2018 Co [facility]rens[facility] Internal (G8553) Medicine (82923) Provider Instructions for no information 04-22-2018 [facility] Medicine (74167) Provider Instructions for no information 07-17-2017 [facility] Internal Treatment Medicine (92021) Thin prep Pap (33218) (no Thin prep Pap (21855) (no 07-17-2017 [facility] STD testing) STD testing) Medicine (67790) Provider Instructions for no information 08-18-2016 [facility] Internal Treatment Medicine (78206) Patient Education Adult Immunization 07-05-2016 Comprehensi ve Internal Schedule: adult Medicine (42401) immunization schedule Provider Instructions for no information 07-05-2016 [facility] Treatment Medicine (40198) Provider Instructions for no information 02-19-2015 [facility] Internal Treatment Medicine (99979) Thin prep Pap (06115) (no Thin prep Pap (45403) (no 02-19-2015 [facility] STD testing) STD testing) Medicine (48786) Provider Instructions for no information 12-14-2014 [facility] Medicine (03512) Provider Instructions for Follow up if no 11-09-2014 [facility] Internal Treatment improvement or if Medicine (6662 1) symptoms worsen Provider Instructions for Follow up in 2 weeks 10-26-2014 [facility] (91408) Patient Education no information 04-07-2014 [facility] Internal Medicine (68069) Procedure Education Eprescribed prescriptions 04-07-2014 [facility] (G8553) Medicine (52244) Provider Instructions for *URI Treatment 04-07-2014 [facility] Internal Treatment Medicine (62461) Thin prep Pap (22001) Thin prep Pap (06307) 02-13-2014 [facility] (26583) Provider Instructions for no information 02-13-2014 [facility] Internal Treatment Medicine (02929) Provider Instructions for Reviewed Diagnostic Tests 07-07-2013 [facility] Internal Treatment Medicine (38490) T4, FREE (THYROXINE) T4, FREE (THYROXINE) 06-30-2013 [facility] Internal (28077) (76450) Medicine (13675) T3, FREE (TRIDOTHYRONINE) T3, FREE (TRIDOTHYRONINE) 06-30-2013 [facility] Internal (79810) (46291) Medicine (36007) C-REACTIVE PROTEIN C-REACTIVE PROTEIN 06-30-2013 Comprehens essence Internal (67537) (85028) Medicine (00509) SED RATE ERYTHROCYTE SED RATE ERYTHROCYTE 06-30-2013 [facility] Internal (91619) (05694) Medicine (87852) TSH (67264) TSH (27784) 06-30-2013 [facility] (50859) METABOLIC PANEL, METABOLIC PANEL, 06-30-2013 [facility] COMPREHENSIVE (01713) COMPREHENSIVE (91938) Medi cine (96176) CBC WITH MANUAL DIFF CBC WITH MANUAL DIFF 06-30-2013 [facility] Internal (91690) (83835) Medicine (81435) Provider Instructions for Solu Medrol Injection/ 04-03-2013 [facility] Internal Treatment Education Medicine (31870) Provider Instructions for Follow up in 1 month 11-25-2012 [facility] (15903) Provider Instructions for Follow up in 1 month 10[facility]25-[facility] (68750) Provider Instructions for no information 08-10-2010 [facility] (91111) TEST - SERUM TEST - SERUM 05-09-2010 [facility] QUANTITATIVE (HCG) QUANTITATIVE (HCG) Medicine ( 99547) (94348) (76447) Comment: pt can be reached Urine Test, Urine Test, 10-20-2009 Comp rehensive Internal Office (10870) Office (51948) Medicine (18814) Provider Instructions for Continue Current 07-26-2009 Compr ehensive Internal Treatment Prescription(s) Medicine (02293) Provider Instructions for no information 07-21-2009 Compre hensive Internal Treatment Medicine (42348) CALCIFEDIOL (26754) CALCIFEDIOL (53762) 03-30-2009 Comprehe nsive Internal Medicine (05847) Comment: Draw Jun 30 Provider Instructions for no information 03-29-2009 [facility] (39087) thin prep (80127) (std thin prep (82661) (std 03-29-2009 [facility] testing) testing) Medicine (71928) Provider Instructions for *fatigue education 03-24-2009 Com prehensive Internal Treatment Medicine (41093) Provider Instructions for no information 05-22-2007 Compre hensive Internal Treatment Medicine (05179) no information [facility] (59216) no information [facility] (42120) no information [facility] (65524) no information [facility] (46978) no information [facility] (21479) no information [facility] (59271) no information [facility] (75486) no information [facility] (80238) no information [facility] (89873) no information [facility] (70996) no information [facility] (44178) no information [facility] (64400) no information [facility] (26059) no information [facility] (98621) no information [facility] (28210) no information [facility] (24604) no information [facility] (77103) Immunizations Vaccine Notes Status Date Location Influenza (3 years influenza, (completed) 10-22-2016 - Comprehen sive Internal and up) seasonal, 10-22-2016 Medicine (71895 ) injectable Comment: given at [employer] Payers Payer Name Policy Number Location [place] LILIYA/CHRISTIANO [id number] [facility] (42014) [employer] [id number] [facility] (94465) [employer] [id number] [facility] (43159) [facility] [id number] [facility] Int ernal Med (91548) [facility] [id number] [facility] (55064) [facility] (82985) [id number] [facility] (72429) Social History Type Social History Description Date Locat ion Caffeine Use [facility] (37624) Comment: occ Light Lives with parents Dog, [...] Advance Directives Name Dates Details Immunization Registry [facility] - Effective on Effective: 26-S ep-2017 07/17/2017. Expiration date unspecified Name Dates Details Immunization Registry [facility] - Effective on Effective: -S ep-201607/17/2017. Expiration date unspecified Name Dates Details Immunization Registry [facility] - Effective on Effective: -S ep-201607/17/2017. Expiration date unspecified Name Dates Details Immunization Registry [facility] - Effective on Effective: 26-S ep-2017 07/17/2017. Expiration date unspecified Name Dates Details Immunization Registry [facility] - Effective on Effective: 26-S ep-2017 07/17/2017. Expiration date unspecified Name Dates Details Immunization Registry [facility] - Effective on Effective: 26-S ep-2017 07/17/2017. Expiration date unspecified Name Dates Details Immunization Registry [facility] - Effective on Effective: 26-S ep-2017 07/17/2017. Expiration date unspecified Name Dates Details Immunization Registry [facility] - Effective on Effective: 26-S ep-2017 07/17/2017. Expiration date unspecified Name Dates Details Immunization Registry [facility] - Effective on Effective: -S ep-2017 07/17/2017. Expiration date unspecified Name Dates Details Immunization Registry [facility] - Effective on Effective: 26-S ep-2017 07/17/2017. Expiration date unspecified Name Dates Details Immunization Registry [facility] - Effective on Effective: -S ep-2017 07/17/2017. Expiration date unspecified Name Dates Details Immunization Registry [facility] - Effective on Effective: 26-S ep-2017 07/17/2017. [...] BE BASED ON THE PRIMARY CLINICAL RECORDS. [facility] provides no warranty or guarantee of the accuracy or completeness of information in this document. UNRECOGNIZED CONTENT PROVIDED BELOW FOR UNRECOGNIZED SECTION INFORMATION SOURCE DATE CREATED AUTHOR AUTHOR'S DAMASO Stiles 01/02/2019 [facility]
--- OUTSIDE RECORDS SUMMARY | 2020-08-03 17:32 | XMS RPT_ITS | CCD ---
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 (80227) Ordered By: Bao Rojas on 2019-06-13 S. pyogenes Ag IA Ql Negative Normal 9 [facility] Internal (Unsp spec) Medicine (80081) throat culture (94874) Ordered By: Clinical Cytogenetics Director on 2018-07-02 Bacteria identified Final report Normal 018 [facility] Internal Respiratory culture [facility] Medicine (92492) (Unsp spec) Comment: PATIENT NOT FASTINGPERFORMED BY: CB [facility] Fcucfd7585 [address] RoadDublin [place] [id number] Information: SRC:TH Bacteria identified RRF Normal 07-02-2018 [facility] Internal Respiratory culture Nom ([facility] Medicine (85229) spec) Comment: Routine respiratory farzaneh PATIENT NOT FASTINGPERFORMED BY: CB [facility] Afiukm2732 [address] RoadDublin [place] [id number] Information: SRC:TH rapid strep test, office (39167) Ordered By: Sondra Patterson on 2018-07-02 S. pyogenes Ag IA Ql Negative Normal 8 Comprehensive Internal ([facility] spec) Medicine (20711) lipid panel (25495) Ordered By: Clinical Cytogenetics Director on 2017-08-20 Cholesterol in HDL mass 64 mg/dL Normal 2016 Comprehensive Internal conc Medicine ( 13214) Comment: PATIENT WAS FASTINGPERFORMED BY: CB [facility] Iplezb0461 [address] RoadDublin [place] [id number] Cholesterol in LDL mass 107 0-99 mg/dL Abnormal 2016 Comprehensive Internal conc Medicine ( 20384) Comment: PATIENT WAS FASTINGPERFORMED BY: JONNY [facility] Ukfmnk4417 [address] RoadDublin [place] [id number] Cholesterol in 1.7 0.0-3.2 {ratio_units} Normal 08-20-2017 Comprehensive LDL/Cholesterol in HDL Internal Medicine mass ratio (66028) Comment: LDL/HDL Ratio Men Women 1/2 Avg.Risk 1.0 1.5 Avg.Risk 3.6 3.2 2X Avg.Risk 6.2 5.0 3X Avg.Risk 8.0 6.1 PATIENT WAS FASTINGPERFORMED BY: CB [facility] Plpoce2132 [address] RoadDublin [place] [id number] Cholesterol in VLDL mass 20 5-40 mg/dL Normal 08-20 Comprehensive Internal conc Medicine ( 27801) Comment: PATIENT WAS FASTINGPERFORMED BY: CB [facility] Ubcdwq8417 [address] RoadDublin [place] [id number] Cholesterol mass conc 191 100-199 mg/dL Normal 08-20-20 17 [facility] Internal Medicine ( 34933) Comment: PATIENT WAS FASTINGPERFORMED BY: CB [facility] Mbxisq9259 [address] RoadLifec[facility] [place] [place] [id number] Triglyceride mass conc 100 0-149 mg/dL Normal 017 Comprehensive Internal Medicine ( 98550) Comment: PATIENT WAS FASTINGPERFORMED BY: CB [facility] Gkljva2758 [address] [facility] [place] [id number] glucose (07373) Orde red By: Clinical Cytogenetics Director on 2017-08-20 Glucose mass conc 90 65-99 mg/dL Normal 08-20-2017 C omprehensive Internal Medicine (19153) Comment: PATIENT WAS FASTINGPERFORMED BY: CB [facility] Wpdnho8114 [address] RoadDublin [place] [id number] hpv automatic (62680) Ordered By: Clinical Cytogenetics Director on 2017-07-17 HPV Negative Normal 07-17-2017 Comprehen sive 16+18+31+33+35+39+45+51+52+56+58+59+68 Internal DNA Probe+sig amp Ql (Cvx) Medicine (10964) Comment: This high-risk HPV test dete cts thirteen high-risk types(16/18/31/33/35/39/45/5 1/52/56/58/59/68) without differentiation. . Source.............Cervix;En docervixNo. of containers..01 ThinPrep VialPERFORMED BY: [employer] Monroe Hab HousingThe Orthopedic Specialty Hospital [id number] BY: =G DotAlign120 [facility] CenterMedstoryrTripAdvisorThe Orthopedic Specialty Hospital [id number] Information: [id number] Microscopic observation Other . Normal 07-17-2017 Comprehensive Internal Medicine stain Nom (Unsp spec) (57419) Comment: Source.............Cervix;En docervixNo. of containers..01 ThinPrep VialPERFORMED BY: DotAlign120 [address] HabetrTripAdvisorThe Orthopedic Specialty Hospital [id number] BY: =G DotAlign120 [facility] CenterMedstoryrTripAdvisorThe Orthopedic Specialty Hospital [id number] Information: [id number] Pathology report final [facility] Normal 017 Comprehensive Internal diagnosis [facility] Medicine (18948) Comment: NEGATIVE FOR INTRAEPITHELIAL LESION AND MALIGNANCY.Satisfactory for evaluation. Endocervical and /or squamous metaplasticcells (endocervical component) are present.Z11.5 Radha Tapia Biological Science Technician Fish (ASCP) Source.............Cervix;En docervixNo. of containers..01 ThinPrep VialPERFORMED BY: WB [facility] Auegvuoudp896 The GuildrTripAdvisorlyons va medical center [place] [id number] BY: =G LabLumiary120 DemystDatazaMedstoryrleston [place] [id number] Information: [id number] PAPSMR Normal 07-17-2017 [facility] (66166) Comment: The Pap smear is a screening [...] docervixNo. of containers..01 ThinPrep VialPERFORMED BY: WB StyleSaintrTripAdvisorlyons va medical center [place] [id number] BY: =G LabDialogicrp Cuitjsdqbu945 [address] ZimridezaMedstoryrleston [place] [id number] Information: [id number] thin prep pap (28555) (no std testing) Ordered By: Clinical Cytogenetics Director on 2016-07-05 Normal 07-05-2016 [facility] (82383) Comment: Source.............Cervix;En docervixNo. of containers..01 CYTYC Thin Prep VialPATIENT NOT FASTINGPERFO RMED BY: =G [facility] Ibzprkemds218 [facility] [id number] BY: [employer] [id number] BY: [employer] Wjc[address]frcby[address] [id number] Information: [id number] igp, rfx aptima hpv ascu Ordered By: Clinical Cytogenetics Director on 2016-07-05 Diagnosis ICD code SPRCS Normal 07-05-2016 Comprehensive Internal [Identifier] Medicin hola (04541) Comment: R87.610The Pap smear is a sc [...] VialPATIENT NOT FASTINGPERFO RMED BY: =G [facility] Fibdksipha[address] [place] [address] [id number] BY: GiniYL [facility] [address] [id number] BY: POPAPP[address] [place] [address] [id number] Microscopic observation Other . Normal 07-05-2016 Comprehensive Internal Medicine stain Nom (Unsp spec) (46337) Comment: Source.............Cervix;En docervixNo. of containers..01 CYTYC Thin Prep VialPATIENT NOT FASTINGPERFO RMED BY: =G [facility] Nuqzostacf[address] [id number] BY: [employer] [id number] BY: [employer] HabetrTripAdvisorlyons va medical center W [id number] Pathology report final SPRCS Abnormal 016 Comprehensive Internal diagnosis [facility] Medicine (17021) Comment: EPITHELIAL CELL ABNORMALITY. ATYPICAL SQUAMOUS CELLS OF UNDETERMINED SIGNIFICANCE.Satisfactory fo r evaluation. No endocervical component is identified.Z01.419Bruce Wade Land, Biological Science Technician Fish (ASCP)Barb Hoffman MD, Pathologist Source.............Cervix;En docervixNo. of containers..01 CYTYC Thin Prep VialPATIENT NOT FASTINGPERFO RMED BY: =G [facility] Xqskglbwrz791 [address] ZimridezaMedstoryrleslyons va medical center W [id number] BY: Dil[employer] Technologiesrp [address] [id number] BY: WB [employer] Monroe HabetrTripAdvisorlyons va medical center W [id number] hpv aptima Ordered B y: Clinical Cytogenetics Director on 2016-07-05 HPV Negative Normal 07-05-2016 Comprehen sive 16+18+31+33+35+39+45+51+52+56+58+59+66+68 Internal DNA Probe+sig amp Ql (Cvx) Medicine (54648) Comment: This test detects fourteen h igh-risk HPV types (16/18/31/33/35/39/45/51/52/ 56/58/59/66/68) without differentiation. Source.............Cervix;En docervixNo. of containers..01 CYTYC Thin Prep VialPATIENT NOT FASTINGPERFO RMED BY: =G [facility] Wfsmsslwqu185 [address] Habetrleslyons va medical center W [id number] BY: GiniYL [employer] Enterprisesrp Dtuxtrhpdgda[address] [place] [address] [id number] BY: WB [employer] [address] ZimridezaMedstoryrTripAdvisorlyons va medical center W [id number] hpv automatic (04648) Ordered By: Clinical Cytogenetics Director on 2015-02-19 HPV Negative Normal 02-19-2015 Comprehen sive 16+18+31+33+35+39+45+51+52+56+58+59+68 Internal DNA Probe+sig amp Ql (Cvx) Medicine (95543) Comment: This high-risk HPV test dete cts thirteen high-risk types(16/18/31/33/35/39/45/5 1/52/56/58/59/68) without differentiation. . Source.............Cervical; EndocervicalLMP / Prev Treat...CMQ=019077Ry. of containers..01 CYTYC Thin Pr ep VialPATIENT NOT FASTINGPERFORMED BY: WB [facility] Evnupguhqt557 [address] PlazaCharleston [place] [id number] BY: =G [facility] Puvgcisjud507 [address] PlazaCharleston [place] [id number] Information: [id number] Microscopic observation Other . Normal 02-19-2015 Comprehensive Internal Medicine stain Nom (Unsp spec) (62313) Comment: Source.............Cervical; EndocervicalLMP / Prev Treat...IMH=491502Gf. of containers..01 CYTYC Thin Pr ep VialPATIENT NOT FASTINGPERFORMED BY: WB [facility] Qfulizfran504 [address] PlazaCharleston [place] [id number] BY: =G [facility] Rpvmxufsqc079 [address] PlazaCharleston [place] [id number] Information: [id number] Pathology report final [facility] Normal 015 Comprehensive Internal diagnosis Narrative Medicine (38853) Comment: NEGATIVE FOR INTRAEPITHELIAL LESION AND MALIGNANCY.Satisfactory for evaluation. Endocervical and /or squamous metaplasticcells (endocervical component) are present.V73.8 1 ; Special screening examination, human papillomavirus [HPV]Sujey Shetty Biological Science Technician Fish (ASCP) Source.............Cervical; EndocervicalLMP / Prev Treat...GSQ=311513Bq. of containers..01 CYTYC Thin Pr ep VialPATIENT NOT FASTINGPERFORMED BY: WB [facility] Kfkemvvios265 [address] [place] [id number] BY: =G [facility] Dnouiocrei6[address] [place] [id number] Information: [id number] PAPSMR Normal 02-19-2015 [facility] Internal Medicine (58318) Comment: The Pap smear is a screening [...] image guided system. Source.............Cervical; EndocervicalLMP / Prev Treat...ACI=624361Ql. of containers..01 CYTYC Thin Pr ep VialPATIENT NOT FASTINGPERFORMED BY: WB [facility] Nykfyavgys485 [address] Duonglyons va [facility] center W [id number] BY: =G [facility] Bbnavnovch338 [address] Ezerlu[place] [id number] Information: [id number] rapid strep test, office (67852) Ordered By: Janet Power on 2014-04-07 S. pyogenes Ag IA Ql Negative Normal 4 Comprehensive Internal (Unsp spec) Medicine (90598) matt culture-other (62850) Ordered By: Clinical Cytogenetics Director on 2014-04-07 Bacteria identified Final report Normal 014 Comprehensive Internal Respiratory culture Nom Medicine (38034) (Unsp spec) Comment: PATIENT NOT FASTINGPERFORMED BY: CB [facility] Ethrdr8143 [facility] [id number] Information: SRC:THRT X44585 Bacteria identified RRF Normal 04-07-2014 Comprehensive Internal Respiratory culture Nom ([facility] Medicine (81108) spec) Comment: Routine respiratory farzaneh PATIENT NOT FASTINGPERFORMED BY: CB [facility] Bllrii9775 [facility] [id number] Information: SRC:ANDREW [id number] hpv automatic (21798) Ordered By: Clinical Cytogenetics Director on 2014-02-16 HPV Negative Normal 02-16-2014 Comprehen sive 16+18+31+33+35+39+45+51+52+56+58+59+68 Internal DNA Probe+sig amp Ql (Cvx) Medicine (07335) Comment: This high-risk HPV test dete cts thirteen high-risk types(16/18/31/33/35/39/45/5 1/52/56/58/59/68) without differentiation. . Source.............Cervical; EndocervicalLMP / Prev Treat...QQC=480261Bh. of containers..01 CYTYC Thin Pr ep VialPATIENT NOT FASTINGPERFORMED BY: WB [facility] Vlupezdkrq563 [address] PlazaMedstoryrleston [place] [id number] BY: =G [facility] Hrarfnkuhk634 [address] PlazaCharleston [place] [id number] Information: Skyla [id number] Microscopic observation Other . Normal 02-16-2014 Comprehensive Internal Medicine stain Nom (Unsp spec) (97338) Comment: Source.............Cervical; EndocervicalLMP / Prev Treat...ZIY=166752We. of containers..01 CYTYC Thin Pr ep VialPATIENT NOT FASTINGPERFORMED BY: WB [facility] Bcsbrecmkn138 [address] PlazaMedstoryrleston [place] [id number] BY: =G [facility] Zftfgmshrk049 [address] PlazaCharl[place] [id number] Information: Skyla [id number] Pathology report final [facility] Normal 014 Comprehensive Internal diagnosis Narrative Medicine (47946) Comment: NEGATIVE FOR INTRAEPITHELIAL LESION AND MALIGNANCY.CELLULAR CHANGES ASSOCIATED WITH INFLAMMATION ARE PRESENT.THIS SPECIMEN WAS RESCREENED PART OF OUR SUPERVISOR SANDING PROGRAM.Satisfactory for evaluation. Endocervical and/or squamous metaplasticcells (endocervical component) are present.V72.31 ; Routine senior engineering tech ecological examinationHeather Abdalla, Biological Science Technician Fish (ASCP)Marie Arevalo, Supervisory Biological Science Technician Fish (ASCP) Source.............Cervical; EndocervicalLMP / Prev Treat...AIX=701121Ph. of containers..01 CYTYC Thin Pr ep VialPATIENT NOT FASTINGPERFORMED BY: WB [facility] Dowsufmaqq461 [place] [id number] BY: =G [facility] Avknbcszep201 [address] [place] [id number] Information: Skyla [id number] PAPSMR Normal 02-16-2014 [facility] Internal Medicine (83546) Comment: The Pap smear is a screening [...] image guided system. Source.............Cervical; EndocervicalLMP / Prev Treat...ENQ=504306Ht. of containers..01 CYTYC Thin Pr ep VialPATIENT NOT FASTINGPERFORMED BY: WB [facility] Vebsnwdlfd788 [address] [place] [id number] BY: =G [facility] Fnqxdnpsiw329 [address] [place] [id number] Information: Skyla [id number] urine matt culture (ruben col count) (8708 6) Ordered By: Clinical Cytogenetics Director on 2013 Bacteria identified Cx Nom MUG Normal Comprehensive Internal Medicine (U) (18489) Comment: Mixed urogenital flora1,000 Colonies/mL PATIENT NOT FASTINGPERFORMED BY: CB [facility] Stlgzb8692 [address] RoadDublin [place] [id number] Information: SRC:UR Q92097 Bacteria identified Cx Final report Normal Comprehensive Internal Nom (U) Medicine ( 05873) Comment: PATIENT NOT FASTINGPERFORMED BY: JONNY [facility] Abqtki8066 [facility] [id number] Information: SRC:PATEL [id number] urinalysis, office (18751) on 2013-07-23 Bilirubin Ql (U) Small Normal 07-23-2013 Co mprehensive Internal Medicine ( 53920) Glucose Test strip Negative Normal 07-23-2013 Comprehensive Internal mass conc (U) Medici ne (15673) Hemoglobin Ql (U) Non Hemolyzed Normal 07-23-20 13 Comprehensive Internal Moderate Medicine ( 37642) Ketones Ql (U) Moderate Normal 07-23-2013 [facility] ( 33013) Comment: 40mg/dL Leukocyte esterase Test Negative Normal 2012 Comprehensive Internal strip Ql (U) Medicin e (43658) Nitrite Ql (U) Negative Normal 07-23-2013 Comp [facility] ( 79815) pH (U) 6.0 1 Normal 07-23-2013 [facility] ( 35621) Comment: 5.5 Protein Ql (U) Negative Normal 07-23-2013 Comp [facility] ( 94136) Specific gravity Relative 1.025 1 Normal Comprehensive Internal Density (U) Medicine (56952) Comment: >=1.030 Urobilinogen mass/time (24H Normal Normal Comprehensive Internal U) Medicine ( 75873) pelvic (non ) Ordered By: Clinical Cytogenetics Director on 2013-07-04 See Note Normal 07-04-2013 [facility] Internal Medicine (06277) Comment: STUDY: ULTRASOUND OF THE FEM DAVID PELVIS - COMPLETE REASON FOR EXAM: Female, 27 years old. LMP: May. Rightlower quadrant pain. TECHNIQUE: Transabdominal TECHNICAL LUDIN LITY: Adequate. COMPARISON: None. FINDINGS:The uterus is anteverted and is in a midline position . The uterusmeasures8.5 cm x 5.2 cm x 3.0 cm. Normal uterine cervix. The e yegfsijgldiidbkqke78 mm in thickness, and is hyperechoic. There [...] Signed:Melissa PantojaJuly 04, 2013 at 9:45:41 AM [phone] y Signed GP/GP If you are the referring physician and would like to consult with theradiologist who provided this interpretation, please contmack Benton M.D. at [phone]. If this radiologist is unavaila [facility] [place] youwill be directed to another radiologist to [...] Mcbride MD urine matt culture-ruben col count (65583) Ordered By: Clinical Cytogenetics Director on 2013-06-30 Bacteria identified Cx Final report Normal Comprehensive Internal Nom (U) Medicine ( 95672) Comment: PATIENT NOT FASTINGPERFORMED BY: [employer] [facility] Gatrch1106 M[facility]PNov[facility] [id number] Information: SRC:UR P10655 Bacteria identified Cx Nom MUG Normal Comprehensive Internal Medicine (U) (30281) Comment: Mixed urogenital flora10,000 -25,000 colony forming units per mL PATIENT NOT FASTINGPERFORMED BY: CB [facility] Xwmqlq4238 [address] [facility] [id number] Information: SRC:UR R95008 urinalysis, office (96958) Ordered By: Janet Power on 2013-06-30 Bilirubin Ql (U) Negative Normal 06-30-2013 Co mprehensive Internal Medicine ( 04821) Glucose Test strip Negative Normal 06-30-2013 Comprehensive Internal mass conc (U) Medici ne (49253) Hemoglobin Ql (U) Non Hemolyzed Trace Normal Comprehensive Internal Medicine ( 76025) Leukocyte esterase Negative Normal 06-30-2013 Comprehensive Internal Test strip Ql (U) Me dicine (50691) Nitrite Ql (U) Negative Normal 06-30-2013 Comp rehensive Internal Medicine ( 75468) pH (U) 5.0 1 Normal 06-30-2013 Comprehen sive Internal Medicine ( 18629) Protein Ql (U) Negative Normal 06-30-2013 Comp rehensive Internal Medicine ( 92345) Specific gravity 1.025 1 Normal 06-30-2013 Co mprehensive Internal Relative Density (U) Medicine (53381) Urobilinogen mass/time Normal Normal 013 Comprehensive Internal (24H U) Medicine ( 64750) tsh Ordered By: Syst em Teacher Advisor on 2013-06-30 Thyrotropin Qn 1.17 0.358-3.74 {uIU/mL} Normal 06-30-2013 [facility] Internal Medicine ( 99897) t4f Ordered By: Syst em Teacher Advisor on 2013-06-30 1.14 0.76-1.46 ng/dL Normal 06-30-2013 [facility] Internal Medicine (80832) sed Ordered By: Syst em Teacher Advisor on 2013-06-30 4 0-20 mm/h Normal 06-30-2013 [facility] Internal Medicine (89595) ft3 Ordered By: Syst em Teacher Advisor on 2013-06-30 2.9 2.18-3.98 pg/mL Normal 06-30-2013 [facility] Internal Medicine (74758) crp Ordered By: Syst em Teacher Advisor on 2013-06-30 CRP mass conc < 2.90 0.0-3.0 mg/L Normal 06-30-2013 [facility] Internal Medicine (44299) Comment: C-Reactive Protein (CRP) pro megha useful information for thediagnosis, therapy and monitoring of in flammatory processesand associated diseases. For the evaluation of Relative R iskfor Cardiovascular Disease, a High Sensitivity CRP (HSCRP)shoul d be ordered. cmp Ordered By: Syst em Teacher Advisor on 2013-06-30 Albumin mass conc 4.5 3.4-5.0 g/dL Normal 06-30-2013 [facility] ( 89217) ALT enzyme act/vol 23 12-78 U/L Normal 06-30-2013 [facility] Internal Medicine ( 38215) AST enzyme act/vol 17 15-37 U/L Normal 06-30-2013 [facility] Internal Medicine ( 35733) Calcium mass conc 9.1 8.5-10.1 mg/dL Normal 06-30-2013 C [facility] Internal Medicine ( 60601) Chloride molar conc 104 98-107 mmol/L Normal 06-30-2013 [facility] Internal Medicine ( 96944) CO2 molar conc 29.0 21.0-32.0 mmol/L Normal 06-30-2013 Comp [facility] Internal Medicine ( 05554) Creatinine mass conc 0.6 0.6-1.0 mg/dL Normal 3 [facility] Internal Medicine ( 98877) GFR/1.73 sq M 128 mL/min Normal 06-30-2013 Compr ehensive Internal predicted among [facility] (23537) non-blacks MDRD vol rate/area (S/P/Bld) Globulin mass conc 3.1 2.7-4.2 g/dL Normal 06-30-2013 Comprehensive Internal (S) Medicine ( 76687) Glucose mass conc 63 70-110 mg/dL Abnormal 06-30-2013 C omprehensive Internal Medicine ( 68280) Potassium molar conc 4.2 3.5-5.1 mmol/L Normal 3 [facility] Internal Medicine ( 95024) Protein mass conc 7.6 6.4-8.2 g/dL Normal 06-30-2013 C omprehensive Internal Medicine ( 69572) Sodium molar conc 140 136-145 mmol/L Normal 06-30-2013 C omprehensive Internal Medicine ( 04535) Urea nitrogen mass 9 7-18 mg/dL Normal 06-30-2013 Comprehensive Internal conc Medicine ( 72610) 7 5-15 1 Normal 06-30-2013 Comprehen sive Internal Medicine ( 88056) 155 mL/min Normal 06-30-2013 [facility] ( 62770) 70 50-136 U/L Normal 06-30-2013 [facility] ( 03646) 15.0 10-20 {RATIO} Normal 06-30-2013 [facility] ( 86873) 0.70 0.00-1.00 mg/dL Normal 06-30-2013 [facility] Medicine ( 41042) 1.5 0.9-2.4 {RATIO} Normal 06-30-2013 [facility] ( 97655) cbcmd Ordered By: Sy stem Teacher Advisor on 2013-06-30 Erythrocyte 13.6 11.6-14.6 % Normal 06-30-2013 Compreh ensive distribution width I nternal Medicine Ratio (RBC) (31701) Hematocrit Volume 38.6 37-47 % Normal 06-30-2013 C omprehensive Fraction (Bld) Inter nal Medicine (33176) Hemoglobin mass conc 14.0 12.0-15.0 g/dL Normal 3 Comprehensive (Bld) Internal M edicine (75743) MCH Entitic mass 30.7 27.0-32.0 pg Normal 06-30-2013 Co mprehensive (RBC) Internal M edicine (43648) MCHC mass conc (RBC) 36.3 32-36 g/dL Abnormal 3 Comprehensive Internal M edicine (91969) MCV Entitic volume 84.6 81-99 fL Normal 06-30-2013 Comprehensive (RBC) Internal M edicine (22893) Platelet mean volume 11.2 6.2-12.0 fL Normal 3 Comprehensive Entitic volume (Bld) Internal Medicine (61081) Platelets #/vol (Bld) 240 150-450 K/mm3 Normal 06-30-20 13 Comprehensive Internal M edicine (73750) RBC #/vol (Bld) 4.56 4.2-5.4 {M/mm3} Normal 06-30-2013 Com prehensive Internal M edicine (59018) WBC #/vol (Bld) 6.4 4.4-11.0 {k/mm3} Normal 06-30-2013 Com prehensive Internal M edicine (19183) 7.0 0-10 % Normal 06-30-2013 Comprehen [facility] Internal M edicine (79283) 0.9 0-5 % Normal 06-30-2013 [facility]hen [facility] [facility] (08945) 30.7 19-41 % Normal 06-30-2013 [facility] Internal M edicine (84077) 0.00 0.0-0.9 % Normal 06-30-2013 [facility]pre[facility] Internal M edicine (50297) Comment: IG% - Immature Granulocytes (promyelocytes, myelocytes,metamyelocytes) >1.0% indicates that a LEFT SHIFT ispresent. 0.2 0-1 % Normal 06-30-2013 [facility] Internal Medicine (89863) 41.7 35.1-43.9 fL Normal 06-30-2013 [facility] Internal Medicine (03396) 61.2 47-70 % Normal 06-30-2013 [facility] Internal Medicine (39869) 3.9 2.0-7.7 3/uL Normal 06-30-2013 [facility] Internal Medicine (92181) abdomen/pelvis with contrast Ordered By: Clinical Cytogenetics Director on 2013-06-30 See Note Normal 06-30-2013 [facility] Internal Medicine (98870) Comment: STUDY: CT ABDOMEN AND PELVIS WITH [...] Signed:Melissa PantojaJune 30, 2013 at 3:40:31 PM [phone] y Signed GP/GP If you are the referring physician and would like to consult with theradiologist who provided this interpretation, please contmack Benton M.D. at [phone]. If this radiologist is unavaila ble, youwill [...] Mcbride MD spine lumbar (routine) Ordered By: Clinical Cytogenetics Director on 2013-04-04 See Note Normal 04-04-2013 [facility] Internal Medicine (52570) Comment: PROCEDURE: MRI LUMBAR SPINE WITHOUT CONTRAST [...] Mckinney M.D.April 04, 2013 at 7:56:09 PM EDT(531) [phone] Estephania d AM/AM If you are the referring physician and would like to consult with t heradiologist who provided this interpretation, please contact Melissa Rg at . If this radiologist is unavailable, you will bedire cted to another radiologist to assist. If you are a patient with a questio n regarding this report, pleasecontactyour referring physician directly . Professional Interpretation Provided By: Casual Steps, Phone , These documents contain legally protected [...] by: Raegan Mckinney MD vitamin d hydroxy (90827) Ordered By: Clinical Cytogenetics Director on 2012-10-25 25-Hydroxyvitamin 23.5 30.0-100.0 ng/mL Abnormal 10-25-2012 [facility] D2+25-Hydroxyvitamin D3 Internal Medicine mass conc (03107) Comment: Vitamin D deficiency has bee n defined by the [place] ofMedicine and an Endocrine Society practice g uideline as alevel of serum 25-OH vitamin D less than 20 ng/mL (1,2).The Endo crine Society went on to further define vitamin Dinsufficiency as a level be tween 21 and 29 ng/mL (2).1. IOM ([place] of Medicine). 2010. Dietary ref erence intakes for calcium and D. [place]: The National Academies Press .2. Ezra MF, Griselda NC, Asad FELDMAN, et al. Evaluation, treatment , and prevention of vitamin D deficiency: an Endocrine Society clinical p nimesh guideline. JCEM. 2010; 96(7):1911-30. PATIENT NOT FASTINGPERFORMED BY: CB [facility] Efdduo3747 [facility] [id number] tsh (56929) Ordered By: Clinical Cytogenetics Director on 2012-10-25 Thyrotropin Qn 1.560 0.450-4.500 {uIU/mL} Normal 10-25-2012 [facility] ( 06964) Comment: PATIENT NOT FASTINGPERFORMED BY: CB [facility] Orzrkw2482 [address] [facility] [id number] Information: [id number] urine matt culture-identificatn (77652) Ordered By: Clinical Cytogenetics Director on 2010-08-10 Bacteria identified Cx Nom MUG Normal [facility] Medicine (U) (58432) Comment: Mixed urogenital farzaneh PATIENT NOT FASTINGPERFORMED BY: JONNY [facility] Rvjcqy5018 [facility] [id number] Information: [id number] Bacteria identified Cx Final report Normal 07-23 [facility] Internal Nom (U) Medicine ( 99277) Comment: PATIENT NOT FASTINGPERFORMED BY: JONNY [facility] Yksfim2411 [facility] [id number] Information: [id number] urinalysis, office (28447) on 2010-08-10 Bilirubin Ql (U) Small Normal 08-10-2010 Co mprehensive Internal Medicine ( 60197) Glucose Test strip mass Negative Normal 2009 [facility] Internal conc (U) Medicine ( 94500) Hemoglobin Ql (U) Negative Normal 08-10-2010 C omprehensive Internal Medicine ( 81123) Ketones Ql (U) Negative Normal 08-10-2010 Comp rehensive Internal Medicine ( 64752) Leukocyte esterase Test Trace Normal 2009 [facility] Internal strip Ql (U) Medicin e (75952) Nitrite Ql (U) Negative Normal 08-10-2010 Comp rehensive Internal Medicine ( 73621) pH (U) 8.5 1 Normal 08-10-2010 Comprehen sive Internal Medicine ( 77166) Protein Ql (U) 100 mg/dL Normal 08-10-2010 Comp rehensive Internal Medicine ( 65781) Specific gravity Relative 1.015 1 Normal 07-23 [facility] Internal Density (U) Medicine (38720) Urobilinogen mass/time 4 mg/dL Normal 010 [facility] Internal (24H U) Medicine ( 49655) thin prep pap (20016) Ordered By: Clinical Cytogenetics Director on 2010-08-10 Microscopic observation Other . Normal 08-10-2010 [facility] Internal Medicine stain Nom (Unsp spec) (28968) Comment: Source.............Cervical; EndocervicalNo. of containers..01 CYTYC Thin Prep VialPERFORMED BY: LUIS EDUARDO Quesada [facility] Zfrapsfctg080 [facility] [id number] BY: =G [facility] Skzlfhgjrh290 [facility] [id number] Information: [id number] Pathology report final SPRCS Abnormal [address] [facility] (17473) Comment: EPITHELIAL CELL ABNORMALITY. LOW-GRADE SQUAMOUS INTRAEPITHELIAL LESION (LGSIL); MILD DYSPLASIA ISPR ESENT.Satisfactory for evaluation. Endocervical and/or squamous metaplasticc ells (endocervical component) are present.V72.31 ; Routine gynecological exam [facility], Biological Science Technician Fish (ASCP)Mary Barbour MD, [facility] hologist Source.............Cervical; EndocervicalNo. of containers..01 CYTYC Thin Prep VialPERFORMED BY: WB Sangita Motility Count Mkeknirxeh071 [place] [id number] BY: =G [facility] Vrvfofawhf904 [address] PlazaState Reform School [facility] Boysrleston [place] [id number] Information: [id number] Protein mass conc [facility] Normal 08-10-2010 [facility] Internal Medicine (81584) Comment: 795.03The Pap smear is a scr [...] CYTYC Thin Prep VialPERFORMED BY: WB Sangita Beemindermartita Hxvbwhzbbi985 [address] Plaza[place] [id number] BY: =G [facility] Vyevpubjey160 [address] Plaza[place] [id number] Information: [id number] SPRCS Normal 08-10-2010 [facility] Internal Medicine (30881) Comment: 795.03The Pap smear is a scr [...] containers..01 CYTYC Thin Prep VialPERFORMED BY: Sangita Beemindermartita MooneyMhbpmgdjyd404 [facility]patoWynnburg W [id number] BY: =G [facility] Wfesyaeyrh000 [facility] W [id number] Information: [id number] hpv, high-risk Order ed By: Clinical Cytogenetics Director on 2010-08-10 HPV Positive Abnormal 08-10-2010 [facility] 16+18+31+33+35+39+45+51+52+56+58+59+68 Internal DNA Probe+sig amp Ql (Cvx) Medicine (77015) Comment: This high-risk HPV test dete cts thirteen high-risk types(16/18/31/33/35/39/45/5 1/52/56/58/59/68) without differentiation. . Source.............Cervical; EndocervicalNo. of containers..01 CYTYC Thin Prep VialPERFORMED BY: [facility] Beemindermartita MooneyGvxjkeysxu174 [facility] W [id number] BY: =G [facility] Nlrdcetbze240 [facility] W [id number] hcg quant. Ordered B y: Clinical Cytogenetics Director on 2010-05-09 < 1 Normal 05-09-2010 [facility] Internal Medicine (95294) l/s spine,min 4 views (mt) Ordered By: Clinical Cytogenetics Director on 2009-07-21 See Note Normal 07-21-2009 [facility] Internal Medicine (60249) Comment: Exam Number: [id number] CLINI KENAN:23-year-old male with low back pain [...] spine. Reported By: FRANCHESKA JAMES Dr. calcifediol (48283) Ordered By: Brandee Del Rio on 2009-07-09 Calcitriol mass conc 32.1 32.0-100.0 ng/mL Normal 07-09-20 09 [facility] Internal Medicine ( 97556) Comment: Recent studies consider the lower limit of 32.0 ng/mL to be athreshold for optimal health.[place] MEEHAN. J Nutr. 2004;135(2):317-22. Draw around Jul 06 2009; DAVID MORSE NOT FASTINGClinical Information: ADD 604389, [id number] PERFORMED BY: [email or web address] [facility] [id number] vitamin b-12 (cyanocobalamin) (20383) Ordered By: Brandee Del Rio on 2009-03-29 Cobalamin (Vitamin B12) 430 211-911 pg/mL Normal 2008 [facility] Internal mass conc Medicine ( 03608) Comment: PATIENT NOT FASTINGPERFORMED BY: [employer] LabDialogicrp Nmtzdk6[address] [facility] [place] [id number] tsh (14294) Ordered By: Brandee Del Rio on 2009-03-29 Thyrotropin Qn 2.130 0.450-4.500 {uIU/mL} Normal 03-29-2009 [facility] Internal Medicine ( 58457) Comment: PATIENT NOT FASTINGPERFORMED BY: [employer] LabDialogicrp Ogfcap0254 [address] RoadDuin [place] [id number] sed rate erythrocyte (73393) Ordered By: Brandee Del Rio on 2009-03-29 ESR Velocity (Bld) 2 0-20 mm/h Normal 03-29-2009 [facility] Medicine (80473) Comment: PATIENT NOT FASTINGPERFORMED BY: JONNY [facility] Vxdkfd3937 [facility] [id number] rheumatoid factor-quant (76653) Ordered By: Brandee Del Rio on 2009-03-29 Rheumatoid factor Qn 6.4 0.0-13.9 {IU/mL} Normal 9 [facility] Medicine ( 05520) Comment: PATIENT NOT FASTINGPERFORMED BY: [facility] Mpkoit1610 [facility] [id number] metabolic panel, comprehensive (04927) Ordered By: Brandee Del Rio on 2009-03-29 Albumin mass conc 5.2 3.5-5.5 g/dL Normal 03-29-2009 C omprehensive Internal Medicine (74176) Comment: PATIENT NOT FASTINGClinical Information: ADD DRAW FEE 908397,[id number] PERFORMED BY: JONNY [facility] Dub aqj7383 [facility] [id number] Albumin/Globulin mass ratio 2.0 1.1-2.5 1 Normal [facility] Internal Medicine ( 09915) Comment: PATIENT NOT FASTINGClinical Information: ADD DRAW FEE 544236,[id number] PERFORMED BY: JONNY [facility] Dub [id number] [facility] [id number] ALP enzyme act/vol 68 25-150 [iU]/L Normal 03-29-2009 [facility] Internal Medicine (35350) Comment: PATIENT NOT FASTINGClinical Information: ADD DRAW FEE 612871,[id number] PERFORMED BY: [facility] Dub [id number] [facility] [id number] ALT enzyme act/vol 14 0-40 [iU]/L Normal 03-29-2009 [facility] Internal Medicine (00283) Comment: PATIENT NOT FASTINGClinical Information: ADD DRAW FEE 024409,[id number] PERFORMED BY: [facility] Dub glr6423 [facility] [id number] AST enzyme act/vol 18 0-40 [iU]/L Normal 03-29-2009 [facility] Internal Medicine (09641) Comment: PATIENT NOT FASTINGClinical Information: ADD DRAW FEE 838145,[id number] PERFORMED BY: CB [facility] Dub [id number] [address] [facility] [place] [id number] Bilirubin mass conc 1.2 0.1-1.2 mg/dL Normal 03-29-2009 [facility] Internal Medicine ( 58606) Comment: PATIENT NOT FASTINGClinical Information: ADD DRAW FEE 199870,[id number] PERFORMED BY: CB [facility] Dub [id number] [facility] [facility] [id number] Calcium mass conc 10.3 8.5-10.6 mg/dL Normal 03-29-2009 [facility] Internal Medicine ( 11704) Comment: PATIENT NOT FASTINGClinical Information: ADD DRAW FEE 670676,[id number] PERFORMED BY: CB [facility] Dub lex3959 [facility] [facility] [id number] Chloride molar conc 104 97-108 mmol/L Normal 03-29-2009 [facility] Internal Medicine ( 10895) Comment: PATIENT NOT FASTINGClinical Information: ADD DRAW FEE 747556,[id number] PERFORMED BY: CB [facility] Dub [id number] [facility] [id number] CO2 molar conc 21 20-32 mmol/L Normal 03-29-2009 [facility] Internal Medicine (14976) Comment: PATIENT NOT FASTINGClinical Information: ADD DRAW FEE 975999,[id number] PERFORMED BY: CB [facility] Dub [id number] [facility] [id number] Creatinine mass conc 0.78 0.57-1.00 mg/dL Normal 9 [facility] Internal Medicine ( 39501) Comment: PATIENT NOT FASTINGClinical Information: ADD DRAW FEE 566857,[id number] PERFORMED BY: CB [facility] Dub tyz5536 [facility] [id number] GFR/1.73 sq M >59 mL/min/{1.73_m2} Normal 9 Comprehensive Internal predicted among [facility] (51527) blacks MDRD vol rate/area (S/P/Bld) Comment: Note: Persistent reduction f or 3 months or more in an eGFR<60 mL/min/1.73 m2 defines CKD. Patients with e GFR values>/=60 mL/min/1.73 m2 may also have CKD if evidence of persistentpro teinuria is present. Additional information may be found [email or web address]. PATIENT NOT FASTINGClinical Information: ADD DRAW FEE 401174,[id number] PERFORMED BY: CB [facility] Dub [id number] [address] [place] [id number] GFR/1.73 sq >59 mL/min/{1.73_m2} Normal 03-29-2009 [facility] Internal M.predicted MDRD Med [facility] (95766) (S/P/Bld) [Vol rate/Area] Comment: PATIENT NOT FASTINGClinical Information: ADD DRAW FEE 384634,[id number] PERFORMED BY: CB [facility] Dub [id number] [address] [place] [id number] GFR/1.73 sq >59 mL/min/{1.73_m2} Normal 03-29-2009 Comprehensive Internal M.predicted MDRD vol [facility] (83466) rate/area Comment: PATIENT NOT FASTINGClinical Information: ADD DRAW FEE 879827,[id number] PERFORMED BY: CB [facility] Dub [id number] [address] [facility] [place] [id number] Globulin mass conc (S) 2.6 1.5-4.5 g/dL Normal 009 [facility] Internal Medicine ( 30978) Comment: PATIENT NOT FASTINGClinical Information: ADD DRAW FEE 742703,[id number] PERFORMED BY: CB [facility] Dub ubh1810 [address] [facility] [place] [id number] Glucose mass conc 91 65-99 mg/dL Normal 03-29-2009 [facility] Internal Medicine (96524) Comment: PATIENT NOT FASTINGClinical Information: ADD DRAW FEE 382955,[id number] PERFORMED BY: CB [facility] Dub [id number] [address] [facility] [place] [id number] Potassium molar conc 4.3 3.5-5.2 mmol/L Normal 9 [facility] Internal Medicine ( 01555) Comment: PATIENT NOT FASTINGClinical Information: ADD DRAW FEE 615774,[id number] PERFORMED BY: CB [facility] Dub [id number] [facility] [id number] Protein mass conc 7.8 6.0-8.5 g/dL Normal 03-29-2009 [facility] Internal Medicine (16865) Comment: PATIENT NOT FASTINGClinical Information: ADD DRAW FEE 406289,[id number] PERFORMED BY: CB [facility] Dub [id number] [facility] [id number] Sodium molar conc 141 135-145 mmol/L Normal 03-29-2009 [facility] Internal Medicine ( 56056) Comment: PATIENT NOT FASTINGClinical Information: ADD DRAW FEE 236281,[id number] PERFORMED BY: CB [facility] Dub [id number] [address] [facility] [place] [id number] Urea nitrogen mass conc 11 5-26 mg/dL Normal 2008 [facility] Internal Medicine ( 04768) Comment: PATIENT NOT FASTINGClinical Information: ADD DRAW FEE 677170,[id number] PERFORMED BY: CB [facility] Dub [id number] [facility] [id number] Urea nitrogen/Creatinine mass 14 8-27 1 Normal 03-29-2009 [facility] Internal ratio Medicine ( 72300) Comment: PATIENT NOT FASTINGClinical Information: ADD DRAW FEE 690733,[id number] PERFORMED BY: CB [facility] Dub [id number] [facility] [id number] lqd pap [id number] Order ed By: Clinical Cytogenetics Director on 2009-03-29 . Normal 03-29-2009 [facility] Internal Medicine (41226) Comment: CYTOLOGY INFORMATION:- CLINI KENAN INFORMATION: - DATE LMP/MENOPAUSE: 03/17/09 LMP- COLLECTION VIAL: Thin P rep Vial- COMPOSITION STONE APPLICATOR SOURCE: CERVICAL/ENDOCERVICAL- COLLECTION TECHNIQUE: BRUSH/ SPATULA Comment Normal 03-29-2009 [facility] Internal Medicine (02361) Comment: Satisfactory for evaluation. Endocervical and/or squamous metaplasticcells (endocervical component) are present. CYTOLOGY INFORMATION:- CLINI KENAN INFORMATION: - DATE LMP/MENOPAUSE: 03/17/09 LMP- COLLECTION VIAL: Thin P rep Vial- COMPOSITION STONE APPLICATOR SOURCE: CERVICAL/ENDOCERVICAL- COLLECTION TECHNIQUE: BRUSH/ SPATULA [place] [...] HPV testing was performed . .Performed At: [address], [place] [id number] 8 NEGATIVE FOR INTRAEPITHELIAL LESION AND MALIGNANCY.FUNGAL ORGANISMS MORPHOLOGICALLY CONSISTENT W [facility] ANDREE SPECIES AREPRESENT. folate (93048) Order ed By: Brandee Del Rio on 2009-03-29 Folate mass conc 7.4 ng/mL Normal 03-29-2009 Co m[facility] Internal Medicine (68027) Comment: Indeterminate: 3.4 - 5.4 Def icient: <3.4 PATIENT NOT FASTINGPERFORMED BY: CB [facility] Kipyci3329 [address] [place] [id number] cbc (auto) (20325) O rdered By: Brandee Del Rio on 2009-03-29 Erythrocyte distribution 14.5 11.7-15.0 % Normal 03-29 Comprehensive Internal width Ratio (RBC) Me dicine (69819) Comment: PATIENT NOT FASTINGPERFORMED BY: CB [facility] Ybryma5693 [address] RoboteXblin [place] [id number] Hematocrit Volume 42.5 34.0-44.0 % Normal 03-29-2009 C omprehensive Internal Fraction (Bld) Medic ine (00445) Comment: PATIENT NOT FASTINGPERFORMED BY: CB [facility] Bxtfyz9701 [address]Dublin [place] [id number] Hemoglobin mass conc 14.9 11.5-15.0 g/dL Normal 9 [facility] Internal (Bld) Medicine ( 13978) Comment: PATIENT NOT FASTINGPERFORMED BY: CB [facility] Azirsh6431 [address] GlucoVistaD[place] [id number] MCH Entitic mass (RBC) 31.4 27.0-34.0 pg Normal 009 [facility] Internal Medicine ( 49140) Comment: PATIENT NOT FASTINGPERFORMED BY: CB [facility] Ohlfap1997 [address] [place]ucoVistaD[place] [id number] MCHC mass conc (RBC) 35.1 32.0-36.0 g/dL Normal 9 [facility] Internal Medicine ( 05932) Comment: PATIENT NOT FASTINGPERFORMED BY: JONNY [facility] Cdqlrl2122 [address] [place] [id number] MCV Entitic volume (RBC) 90 80-98 fL Normal 03-29 [facility] Internal Medicine ( 25763) Comment: PATIENT NOT FASTINGPERFORMED BY: CB [facility] Ryeigl5146 [address] [place] [id number] Platelets #/vol 262 140-415 {x10E3/uL} Normal 03-29-2009 [facility] (d) [facility] ( 10127) Comment: Please note reference inte rval change PATIENT NOT FASTINGPERFORMED BY: CB [facility] Lyjrmt4164 [address] [facility] [id number] RBC #/vol (Bld) 4.75 3.80-5.10 {x10E6/uL} Normal 03-29-2009 [facility] Internal Medicine ( 97665) Comment: PATIENT NOT FASTINGPERFORMED BY: CB [facility] Ndngph5762 [address] [facility] [place] [id number] WBC #/vol (Bld) 4.9 4.0-10.5 {x10E3/uL} Normal 03-29-2009 [facility] Internal Medicine ( 91867) Comment: PATIENT NOT FASTINGPERFORMED BY: CB [facility] Rhmujs1667 [address] [facility] [id number] calcifediol (03873) Ordered By: Brandee Del Rio on 2009-03-29 Calcitriol mass conc 22.8 32.0-100.0 ng/mL Abnormal 03-29-20 09 [facility] Internal Medicine ( 85402) Comment: Recent studies consider the lower limit of 32.0 ng/mL to be athreshold for optimal health.[place] MEEHAN. J Nutr. 2005 Nov;135(2):317-22. PATIENT NOT FASTINGPERFORMED BY: CB [facility] Gjsfar0054 [address] [facility] [id number] c-reactive protein (20476) Ordered By: Brandee Del Rio on 2009-03-29 CRP mass conc 0.4 0.0-4.9 mg/L Normal 03-29-2009 Compr ehensive Internal Medicine (38689) Comment: PATIENT NOT FASTINGPERFORMED BY: JONNY [facility] Cbmont3659 [address] [place] [id number] francine (antinuclear antibody) (90192) Ordered By: Brandee Del Rio on 2009-03-29 Nuclear Ab Ql (S) Negative Normal 03-29-2009 C omprehensive Internal Medicine (97006) Comment: PATIENT NOT FASTINGPERFORMED BY: JONNY [facility] Edzqsn0914 [address] [place] [id number] urine culture,comprehensive Ordered By: Clinical Cytogenetics Director on 2009-03-24 Bacteria identified Cx Nom NG36 Normal Comprehensive Internal (U) Medicine ( 42997) Comment: No growth in 36 - 48 hours. PATIENT NOT FASTINGClinical Information: SRC:UR ADD [id number] PERFORMED BY: JONNY [facility] Iycdqo7685 [address] adDubharbor oaks hospital [place] [id number] Bacteria identified Cx Final report Normal Comprehensive Internal Nom (U) Medicine ( 05571) Comment: PATIENT NOT FASTINGClinical Information: SRC:UR ADD [id number] PERFORMED BY: JONNY [facility] Wlzpyj0045 [address] adDubSouthern Maine Health Care [id number] urinalysis, office (52685) on 2009-03-24 Bilirubin Ql (U) Negative Normal 03-24-2009 Co mprehensive Internal Medicine ( 34799) Glucose Test strip mass Negative Normal 2008 [facility] Internal conc (U) Medicine ( 84160) Hemoglobin Ql (U) Negative Normal 03-24-2009 C omprehensive Internal Medicine ( 84842) Ketones Ql (U) Negative Normal 03-24-2009 Comp rehensive Internal Medicine ( 97607) Leukocyte esterase Test Negative Normal 2008 Comprehensive Internal strip Ql (U) Medicin e (44782) Nitrite Ql (U) Negative Normal 03-24-2009 Comp rehensive Internal Medicine ( 34621) pH (U) 7.0 1 Normal 03-24-2009 Comprehen sive Internal Medicine ( 66367) Protein Ql (U) Negative Normal 03-24-2009 Comp rehensive Internal Medicine ( 68699) Specific gravity Relative 1.015 1 Normal 06-0 Comprehensive Internal Density (U) Medicine (82086) Urobilinogen mass/time (24H Normal Normal Comprehensive Internal U) Medicine ( 36833) urinalysis, office (68214) on 2008-08-06 Bilirubin Ql (U) Small Normal 08-06-2008 Co mprehensive Internal Medicine (89459) Comment: normal Glucose Test strip mass Negative Normal 2007 [facility] Internal conc (U) Medicine ( 20310) Comment: normal Hemoglobin Ql (U) Negative Normal 08-06-2008 C omprehensive Internal Medicine (37157) Comment: normal Ketones Ql (U) Small Normal 08-06-2008 Comp [facility] (65616) Comment: normal Leukocyte esterase Test Negative Normal 2007 Comprehensive Internal strip Ql (U) Medicin e (14249) Comment: aw normal Nitrite Ql (U) Negative Normal 08-06-2008 Comp [facility] (02694) Comment: normal pH (U) 6.0 1 Normal 08-06-2008 [facility] Internal Medicine (43454) Comment: normal Protein Ql (U) 30 mg/dL Normal 08-06-2008 Comp [facility] (55553) Comment: normal Specific gravity Relative 1.025 1 Normal 07-22 [facility] Internal Medicine Density (U) (10499) Comment: normal Urobilinogen mass/time (24H Normal Normal Comprehensive Internal U) Medicine ( 91646) Comment: normal lipid panel (24001) Ordered By: Henrietta Collazo on 2008-07-02 Cholesterol in HDL mass 52 40-59 mg/dL Normal 2007 Comprehensive Internal conc Medicine ( 49212) Comment: PATIENT WAS FASTINGClinical Information: ADD DRAW FEE 246638 ADD J 18313 PERFORMED BY: CB [facility] Dub [id number] [facility] [id number] Cholesterol in LDL mass 95 0-99 mg/dL Normal 2007 Comprehensive Internal conc Medicine ( 30053) Comment: PATIENT WAS FASTINGClinical Information: ADD DRAW FEE 561932 ADD J 47668 PERFORMED BY: CB [facility] Dub [id number] [facility] [id number] Cholesterol in 1.8 0.0-3.2 {ratio_units} Normal 07-02-2008 Comprehensive LDL/Cholesterol in HDL Internal Medicine mass ratio (11261) Comment: PATIENT WAS FASTINGClinical Information: ADD DRAW FEE 980735 ADD J 96927 PERFORMED BY: CB [facility] Dub [id number] [facility] RoadLifecare Hospitals Of [place] [id number] Cholesterol in VLDL mass 21 5-40 mg/dL Normal 07-02 [facility] ( 40817) Comment: PATIENT WAS FASTINGClinical Information: ADD DRAW FEE [id number] ADD J [id number] PERFORMED BY: [facility] [id number] [facility] [place] [id number] Cholesterol mass conc 168 100-199 mg/dL Normal 07-02-20 08 [facility] ( 49950) Comment: PATIENT WAS FASTINGClinical Information: ADD DRAW FEE [id number] ADD J [id number] PERFORMED BY: CB [facility] [id number] [facility] [place] [id number] Triglyceride mass conc 107 0-149 mg/dL Normal 008 [facility] ( 58735) Comment: PATIENT WAS FASTINGClinical Information: ADD DRAW FEE [id number] ADD J [id number] PERFORMED BY: CB [facility] [id number] [facility] [id number] Vital Signs Vital Sign Description Value / Unit Date Location The following section is limited to 5 en tries per type and includes entries from the following time range: [id number] - 9. BMI (Body Mass Index) 25.06 kg/m2 06-30-2020 [facility] (93822) BMI (Body Mass Index) 25.06 kg/m2 06-11-2020 [facility] (38090) BMI (Body Mass Index) 25.06 kg/m2 [facility]-04-[facility] (17106[facility] BMI (Body Mass Index) 24.44 kg/m2 04-29-2020 [facility] (80459) BMI (Body Mass Index) 24.59 kg/m2 09-02-2019 [facility] (25438) Body Temperature 96.8 [degF] 06-30-2020 [facility] (05580) Body Temperature 96.8 [degF] 06-11-2020 [facility] (81458) Body Temperature 97.1 [degF] 04-29-2020 [facility] (65678) Body Temperature 97.1 [degF] 09-02-2019 [facility] (50577) Body Temperature 97.3 [degF] 08-11-2019 [facility] (29427) Body weight 72.59 kg 06-30-2020 [facility] (62006) Body weight 72.59 kg 06-11-2020 [facility] (26719) Body weight 72.59 kg 06-04-2020 [facility] (97278) Body weight 70.77 kg 04-29-2020 [facility] (05874) Body weight 71.23 kg 09-02-2019 [facility] (68272) BP Diastolic 72 mm[Hg] 06-30-2020 [facility] (84575) BP Diastolic 72 mm[Hg] 06-11-2020 [facility] (32614) BP Diastolic 80 mm[Hg] 04-29-2020 [facility] (84110) BP Diastolic 70 mm[Hg] 09-02-2019 [facility] (15949) BP Diastolic 68 mm[Hg] 08-11-2019 [facility] (83938) BP Systolic 118 mm[Hg] 06-30-2020 [facility] (44169) BP Systolic 120 mm[Hg] 06-11-2020 [facility] (61267) BP Systolic 111 mm[Hg] 04-29-2020 [facility] (60925) BP Systolic 112 mm[Hg] 09-02-2019 [facility] (08317) BP Systolic 112 mm[Hg] 08-11-2019 [facility] (29995) BSA (Body Surface Area) 1.84 m2 06-30-2020 [facility] (38263) BSA (Body Surface Area) 1.84 m2 06-11-2020 [facility] (17352) BSA (Body Surface Area) 1.84 m2 06-04-2020 [facility] (32726) BSA (Body Surface Area) 1.82 m2 04-29-2020 [facility] (26402) BSA (Body Surface Area) 1.82 m2 09-02-2019 [facility] (89373) Head Circumference 0 cm 07-26-2009 [facility] (63944) Head Circumference 0 cm 07-21-2009 [facility] (12527) Head Circumference 0 cm 07-16-2009 [facility] (30342) Head Circumference 0 cm 07-09-2009 [facility] (53885) Head Circumference 0 cm 04-05-2009 [facility] (76262) Height 170.18 cm 06-30-2020 [facility] (20161) Height 170.18 cm 06-11-2020 [facility] (78265) Height 170.18 cm 06-04-2020 [facility] (90009) Height 170.18 cm 04-29-2020 [facility] (44682) Height 170.18 cm 09-02-2019 [facility] (88906) Pulse (Heart Rate) 62 /min 06-30-2020 [facility] (38072) Pulse (Heart Rate) 61 /min 06-11-2020 [facility] (73666) Pulse (Heart Rate) 74 /min 04-29-2020 [facility] (93253) Pulse (Heart Rate) 79 /min 09-02-2019 [facility] (67386) Pulse (Heart Rate) 91 /min 08-11-2019 [facility] (31305) Pulse Oximetry 96 % 06-30-2020 [facility] (59834) Pulse Oximetry 98 % 06-11-2020 [facility] (10923) Pulse Oximetry 93 % 04-29-2020 [facility] (10316) Pulse Oximetry 98 % 09-02-2019 [facility] (15886) Pulse Oximetry 99 % 08-11-2019 [facility] (76547) Respiratory Rate 16 /min 06-30-2020 [facility] (85992) Respiratory Rate 16 /min 06-11-2020 [facility] (68598) Respiratory Rate 16 /min 04-29-2020 [facility] (03429) Respiratory Rate 16 /min 09-02-2019 [facility] (51067) Respiratory Rate 17 /min 08-11-2019 [facility] (82309) Encounters Date Type Reason Provider Location 09-01-2019 [...] [facility] - visit 10 minutes Internal Pa dicine 06-11-2020 08-01-2019 Office outpatient BMI 22.0-22.9, [...] [facility] - visit 15 minutes Internal Pa dicine 04-07-2014 04-05-2009 Office outpatient [facility] - visit 15 minutes Internal Pa [facility] 04-05-2009 10-26-2014 Office outpatient [facility] - visit 25 minutes Internal Pa d[facility] 10-26-2014 08-06-2008 Office outpatient [facility] - visit 25 minutes Internal Pa dicine 08-06-2008 05-22-2007 Office outpatient [facility] - visit 25 minutes Internal [facility] 05-22-2007 01-01-2019 Patient encounter Henrietta Collazo Compreh ensive procedure Henrietta Collazo Internal Med (78964) Henrietta Collazo 02-13-2014 Patient encounter Comprehens essence [...] Henrietta Collazo Comprehensi ve Internal 06-11-2020 Medicine (47154) Emergency Department 03-16-2020 - Comprehensi ve Internal Summary 03-23-2020 Medicine (89421) Discharge Instruction 03-12-2020 - [facility] 03-12-2020 Medicine (41562) Emergency Department 03-12-2020 - Comprehensi ve Internal Summary 03-18-2020 Medicine (06003) Venous Duplex Upper 01-01-2019 - Brandee Del Rio Comprehensiv e Internal Extremity 01-01-2019 Medicine (49914) Chest PA and Lateral 04-22-2018 - Mili Castro Comprehensi ve Internal 04-22-2018 Medicine (40783) Emergency Department 07-14-2017 - Comprehensi ve Internal Summary 07-14-2017 Medicine (47617) Cerv Spine 2 or 3 Views 07-14-2017 - Comprehe nsive Internal 07-14-2017 Medicine (25678) Stress Report 04-20-2017 - [facility] In ternal 04-20-2017 Medicine (88353) L/S Spine Bending 11-13-2014 - [facility] Flex/Ext 11-14-2014 Medicine (36168) Spine Lumbar (Routine) 11-13-2014 - Comprehen sive Internal 11-13-2014 Medicine (73124) Plan of Treatment Plan Description Date Location Procedure Education Eprescribed prescriptions 06-30-2020 [facility] (G8553) Medicine (81838) NMR Profile (29284) NMR Profile (13696) 06-30-2020 [facility] (92716) Procedure Education Eprescribed prescriptions 06-11-2020 [facility] (G8553) Medicine (35105) Provider Instructions for Follow up in 2 -3weeks- 06-11-2020 [facility] Treatment possible shoulder Medicine (2710 1) injection Procedure Education Eprescribed prescriptions 06-04-2020 [facility] (G8553) Medicine (92464) Provider Instructions for Reviewed Lab 06-04-2020 [facility] Treatment Medicine (96428) TSH (86563) TSH (58512) 04-29-2020 [facility] (18906) Procedure Education Eprescribed prescriptions 04-29-2020 [facility] (12286) Provider Instructions for Follow up in 4 weeks 04-29-2020 [facility] Treatment Medicine (00667) Procedure Education Eprescribed prescriptions 09-02-2019 [facility] (G8553[facility] (92648) Provider Instructions for no information 09-02-2019 [facility] (64301) TSH (THYROID STIMULATING TSH (THYROID STIMULATING 09-01-2019 [facility] HORMONE) (82051) HORMONE) (65237) Medicine (2992 1) CBC & PLATELETS (AUTO) CBC & PLATELETS (AUTO) 09-01-2019 [facility] (27055) (04393) Medicine (28981) GLUCOSE (29999) GLUCOSE (67300) 09-01-2019 [facility] (71212) LIPID PANEL (90598) LIPID PANEL (64938) 09-01-2019 Compre[facility] nsive Internal Medicine (63030) Procedure Education Eprescribed prescriptions 08-11-2019 [facility] (G8553[facility] (51529) Provider Instructions for no information 08-11-2019 [facility] Medicine (12030) Sputum Culture (19769) Sputum Culture (74848) 08-11-2019 [facility] (84450) Procedure Education Eprescribed prescriptions 01-01-2019 [facility] (G8553) Medicine (09358) Patient Education Sore Throat *: upper 07-02-2018 Comprehen sive Internal respiratory infection Medicine ( 42218) Procedure Education Eprescribed prescriptions 07-02-2018 [facility] (93486) Provider Instructions for Follow up if no 07-02-2018 [facility] Treatment improvement or if Medicine (4469 1) symptoms worsen Patient Education Sinusitis *: sinus 04-22-2018 Comprehensi ve Internal infection Medicine (09255) Procedure Education Eprescribed prescriptions 04-22-2018 [facility] (G8553) Medicine (81766) Provider Instructions for no information 04-22-2018 [facility] Treatment Medicine (91458) Provider Instructions for no information 07-17-2017 [facility] Internal Treatment Medicine (78178) Thin prep Pap (09844) (no Thin prep Pap (01153) (no 07-17-2017 [facility] STD testing) STD testing) Medicine (60855) Provider Instructions for no information 08-18-2016 [facility] Internal Treatment Medicine (59017) Patient Education Adult Immunization 07-05-2016 Comprehensi ve Internal Schedule: adult Medicine (25570) immunization schedule Provider Instructions for no information 07-05-2016 [facility] Medicine (95755) Provider Instructions for no information 02-19-2015 [facility] Internal Treatment Medicine (26458) Thin prep Pap (19045) (no Thin prep Pap (91321) (no 02-19-2015 [facility] STD testing) STD testing) Medicine (22171) Provider Instructions for no information 12-14-2014 [facility] Medicine (75662) Provider Instructions for Follow up if no 11-09-2014 [facility] Internal Treatment improvement or if Medicine (6024 1) symptoms worsen Provider Instructions for Follow up in 2 weeks 10-26-2014 [facility] (55413) Patient Education no information 04-07-2014 [facility] Internal Medicine (18042) Procedure Education Eprescribed prescriptions 04-07-2014 [facility] (G8553) Medicine (80493) Provider Instructions for *URI Treatment 04-07-2014 [facility] Internal Treatment Medicine (09358) Thin prep Pap (63059) Thin prep Pap (07555) 02-13-2014 [facility] (21408) Provider Instructions for no information 02-13-2014 [facility] Internal Treatment Medicine (68944) Provider Instructions for Reviewed Diagnostic Tests 07-07-2013 [facility] Internal Treatment Medicine (63335) T4, FREE (THYROXINE) T4, FREE (THYROXINE) 06-30-2013 [facility] Internal (12631) (79011) Medicine (45085) T3, FREE (TRIDOTHYRONINE) T3, FREE (TRIDOTHYRONINE) 06-30-2013 [facility] Internal (18001) (52750) Medicine (61814) C-REACTIVE PROTEIN C-REACTIVE PROTEIN 06-30-2013 [facility] (48766) (70849) Medicine (74094) SED RATE ERYTHROCYTE SED RATE ERYTHROCYTE 06-30-2013 [facility] Internal (90302) (38264) Medicine (11750) TSH (20798) TSH (61859) 06-30-2013 [facility] (95919) METABOLIC PANEL, METABOLIC PANEL, 06-30-2013 [facility] COMPREHENSIVE (92962) COMPREHENSIVE (40066) Medi cine (51860) CBC WITH MANUAL DIFF CBC WITH MANUAL DIFF 06-30-2013 [facility] Internal (81155) (51921) Medicine (37081) Provider Instructions for Solu Medrol Injection/ 04-03-2013 [facility] Internal Treatment Education Medicine (12435) Provider Instructions for Follow up in 1 month 11-25-2012 [facility] (91915) Provider Instructions for Follow up in 1 month 10-25-[facility] (73641) Provider Instructions for no information 08-10-2010 [facility] Treatment Medicine (99982) TEST - SERUM TEST - SERUM 05-09-2010 [facility] QUANTITATIVE (HCG) QUANTITATIVE (HCG) Medicine ( 59064) (25897) (75028) Comment: pt can be reached Urine Test, Urine Test, 10-20-2009 Comp rehensive Internal Office (81758) Office (86794) Medicine (21543) Provider Instructions for Continue Current 07-26-2009 Compr ehensive Internal Treatment Prescription(s) Medicine (26197) Provider Instructions for no information 07-21-2009 Compre hensive Internal Treatment Medicine (68750) CALCIFEDIOL (57218) CALCIFEDIOL (60992) 03-30-2009 Comprehe nsive Internal Medicine (00384) Comment: Draw Jun 30 Provider Instructions for no information 03-29-2009 [facility] Treatment Medicine (58360) thin prep (32740) (std thin prep (22661) (std 03-29-2009 [facility] testing) testing) Medicine (38042) Provider Instructions for *fatigue education 03-24-2009 Com prehensive Internal Treatment Medicine (88933) Provider Instructions for no information 05-22-2007 Compre hensive Internal Treatment Medicine (26747) no information [facility] (54553) no information [facility] (30917) no information [facility] (25408) no information [facility] (14090) no information [facility] (75331) no information [facility] (24691) no information [facility] (78551) no information [facility] (57982) no information [facility] (92229) no information [facility] (43796) no information [facility] (47145) no information [facility] (72427) no information [facility] (80976) no information [facility] (56724) no information [facility] (17868) no information [facility] (56750) no information [facility] (48292) Immunizations Vaccine Notes Status Date Location Influenza (3 years influenza, (completed) 10-22-2016 - Comprehen sive Internal and up) seasonal, 10-22-2016 Medicine (28438 ) injectable Comment: given at [employer] Payers Payer Name Policy Number Location [place] LILIYA/CHRISTIANO [id number] [facility] (62626) [facility] [id number] [facility] (34244) [facility] [id number] [facility] (40502) [facility] [id number] [facility] Int ernal Med (00702) [facility] [id number] [facility] (67973) [facility] (63763) [id number] [facility] (87574) Social History Type Social History Description Date Locat ion Caffeine Use [facility] (43409) Comment: occ Light Lives with parents Dog, [...] Advance Directives Name Dates Details Immunization Registry [place] - Effective on Effective: 26-S ep-2017 07/17/2017. Expiration date unspecified Name Dates Details Immunization Registry [place] - Effective on Effective: -S ep-201607/17/2017. Expiration date unspecified Name Dates Details Immunization Registry [place] - Effective on Effective: -S ep-201607/17/2017. Expiration date unspecified Name Dates Details Immunization Registry [place] - Effective on Effective: 26-S ep-2017 07/17/2017. Expiration date unspecified Name Dates Details Immunization Registry [place] - Effective on Effective: 26-S ep-2017 07/17/2017. Expiration date unspecified Name Dates Details Immunization Registry [place] - Effective on Effective: 26-S ep-2017 07/17/2017. Expiration date unspecified Name Dates Details Immunization Registry [place] - Effective on Effective: 26-S ep-2017 07/17/2017. Expiration date unspecified Name Dates Details Immunization Registry [place] - Effective on Effective: 26-S ep-2017 07/17/2017. Expiration date unspecified Name Dates Details Immunization Registry [place] - Effective on Effective: -S ep-2017 07/17/2017. Expiration date unspecified Name Dates Details Immunization Registry [place] - Effective on Effective: 26-S ep-2017 07/17/2017. Expiration date unspecified Name Dates Details Immunization Registry [place] - Effective on Effective: -S ep-2017 07/17/2017. Expiration date unspecified Name Dates Details Immunization Registry [place] - Effective on Effective: 26-S ep-2017 07/17/2017. [...] BE BASED ON THE PRIMARY CLINICAL RECORDS. [facility] provides no warranty or guarantee of the accuracy or completeness of information in this document. UNRECOGNIZED CONTENT PROVIDED BELOW FOR UNRECOGNIZED SECTION INFORMATION SOURCE DATE CREATED AUTHOR AUTHOR'S DAAMSO Stiles 01/02/2019 [facility]
== END 2020-03-16 21:25 | disposition home or self-care (01) ==
LOC: ED 21:02
PROVIDERS: Emergency Provider Emergency Medicine; PCP Internal Medicine
DX: Z76.0 Encounter for issue of repeat prescription (principal)
CPT/HCPCS: 99283

== ENCOUNTER → 2020-06-11 15:21 | Outpatient (CLI) | payer OTHER, SELFPAY ==
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
== END ==
PROVIDERS: PCP Internal Medicine; Visit Provider Internal Medicine
DX: M25.511 Pain in right shoulder (principal)
CPT/HCPCS: 73030